=== PATIENT | male | born 1970 | race Caucasian/White ===

== ENCOUNTER 2024-03-07 08:42 | Outpatient (OUT) | payer OTHER, SELFPAY ==
--- NOTE | 2024-03-07 08:44 | XR_ITS ---
[address] [address] Patient Name: REY BERNSTEIN MRN: [id number] date: 1970 Sex: M Assigned Patient Location: [facility] Current Patient Location: Accession/Order Number: [id number] Exam Date: 03/07/2024 08:45 Report Date: 03/10/2024 07:17 At the request of: WALLACE DUQUE Procedure: XR knee RT 3V PROCEDURE: XR knee RT 3V COMPARISON: None. HISTORY: Knee Osteoarthritis FINDINGS: BONES:No acute fracture or dislocation. Minimal degenerative changes with marginal osteophyte formation. Cortical exostosis along the medial femoral condyle osteochondroma is favored SOFT TISSUES:Negative. No visible soft tissue swelling. EFFUSION:None visible. OTHER: Negative. XR/XR knee RT 3V IMPRESSION: Minimal degenerative changes. Electronically authenticated by: LYNDON PARKS Date: 03/10/2024 07:17
== END 2024-03-07 08:43 | disposition home or self-care (01) ==
LOC: RAD 08:42
PROVIDERS: PCP Family Medicine; Visit Provider Family Medicine
DX: M25.561 Pain in right knee (principal)
CPT/HCPCS: 73562

== ENCOUNTER 2024-05-13 13:11 | Outpatient (OUT) | payer OTHER, SELFPAY ==
--- NOTE | 2024-05-13 13:14 | MR_ITS ---
[address] [address] Patient Name: REY BERNSTEIN MRN: [id number] date: 1970 Sex: M Assigned Patient Location: MRI Current Patient Location: MRI Accession/Order Number: [id number] Exam Date: 05/13/2024 18:42 Report Date: 05/13/2024 18:55 At the request of: WALLACE DUQUE MD Procedure: MR knee RT wo con MRI of the RIGHT Knee without contrast TECHNIQUE: Multiplanar T1 and T2-weighted imaging of the knee obtained without contrast HISTORY: Anterior medial right knee pain for 2 months. COMPARISON:Plain film imaging 03/07/2024 BONE MARROW: No infiltrative changes. BONE MARROW EDEMA: None FRACTURE: None BONE TUMOR: None BONY ALIGNMENT: Adequate DEGENERATION: Patellofemoral JOINT EFFUSION: Small moderate MUSCLES: Unremarkable SOFT TISSUES: Unremarkable POPLITEAL CYST: None ANTERIOR CRUCIATE LIGAMENT: Intact POSTERIOR CRUCIATE LIGAMENT: Intact LATERAL COMPARTMENT: LATERAL MENISCUS: Increased T2 signal change within the substance of the body of the lateral meniscus suggesting mucoid degeneration. Moderate lateral extrusion of the body. No articular surface tear visualized.. LATERAL ARTICULAR CARTILAGE: Intact. No osteochondral defect. No subcuticular bone marrow edema. PROXIMAL TIBIOFIBULAR JOINT: Intact POSTERIOR LATERAL COMPARTMENT: Intact lateral collateral ligament complex. Intact biceps femoris tendon. Intact popliteus tendon. COMMON PERONEAL NERVE: Intact MEDIAL COMPARTMENT: MEDIAL MENISCUS: Focus of increased T2 signal intensity in the body of the medial meniscus concerning for radial tear. MEDIAL ARTICULAR SURFACE: No chondromalacia. No subarticular bone marrow edema. Small ganglion cyst posterior to the medial joint space. POSTERIOR MEDIAL COMPARTMENT: Medial collateral ligament complex intact. The semimembranosus tendon intact. No ramp lesion of the posterior horn of medial meniscus present. PATELLOFEMORAL COMPARTMENT: PATELLOFEMORAL ARTICULAR CARTILAGE: Marked thinning of the patellofemoral cartilage. Subchondral bone marrow edema of the patella. Findings consistent with degenerative chondromalacia. Mild patellar subluxation. Anterior and medial lateral subcutaneous edema. ANTERIOR LIGAMENTS: Patellar ligament and quadriceps tendon are intact. MR/MR knee RT wo con IMPRESSION: Concern for radial tear of the body of the medial meniscus. Mucoid degeneration of the lateral meniscus. Intact ACL. Small joint effusion. Degenerative chondromalacia patella with mild subluxation. Anterior subcutaneous edematous changes, nonspecific. Impression dictated by: Jose Benito M.D.05/13/2024 6:55 PM Dictation Location[facility] Electron[facility] authenticated by: [id number] Y Date: 05/13/2024 18:55
--- OUTSIDE RECORDS SUMMARY | 2024-05-13 13:15 | XMS_ITS | CCD ---
Author Organization [facility] Care Team Providers Care Staking Engineer Name Role Phone DUNIA Leo, DR GONSALEZ Consulting Unavailable DUNIA Leo, DR GONSALEZ Attending Unavailable DUNIA Leo, DR GONSALEZ Admitting Unavailable DUNIA ., DR GONSALEZ Primary Care Unavailable Annmarie Mann Unavailable Allergies Allergy Classification Reported Allergen(s) Allergy Type Date of Onset Reaction(s) Facility (1 source) Penicillin Drug Allergy 02-12-2021 [facility] Repository (1 source) Penicillin G Drug Allergy Unknown [facility] Other Problems Problem Classification Problem Date Documented Da te Episodic/Chronic Gout and other crystal arthropathies (4 sources) Gout, unspecified; Translations: [GOUT UNSPECIFIED] Onset: 05-25-2022 Chronic Other injuries and conditions due to external causes (1 source) Foreign body in right ear, initial encounter Episodic Results Test Name Value Interpretation Reference Range Facil ity TITI by IFAon 05-28-2022 Antinuclear Antibodies, IFA Negative Normal [facility] Comment on above: Result Comment: Nega tive <1:80 Borderline 1:80 Positive >1:80 ICAP nomenclature: AC-0 For more information about Hep-2 cell patterns use ANApatterns.org, the official website for the International Consensus on Antinuclear Antibody (TITI) Patterns (ICAP). Performed By: #### A NAIFA #### [facility] [address] [address] [address] Lisbet Bowser TITI DIRECTon 05-26-2022 TITI Direct Negative Normal Negative [facility] Comment on above: Performed By: #### A NAD #### [facility] [address] [address] [address] Lisbet Bowser ANTISTREPTOLYSIN O AB (ASO)o n 05-26-2022 Antistreptolysin O Ab 118.2 IU/mL Normal 0.0-200.0 [facility] Comment on above: Performed By: #### A SOAB #### [facility] [address] [place] [address] Dr. Lisbet Bowser C3 and C4 COMPLEMENTon 05-26 Complement C3, Serum 152 mg/dL Normal 82-167 [facility] Comment on above: Performed By: #### C SUITE #### [facility] [address] [address] [address] Lisbet Bowser Complement C4, Serum 20 mg/dL Normal 12-38 [facility] Comment on above: Performed By: #### C SUITE #### [facility] [address] [place] [address] Dr. Lisbet Bowser SLE PROFILE Aon 05-26-2022 Anti-DNA (DS) Ab Qn 1 IU/mL Normal 0-9 [facility] Comment on above: Result Comment: Nega tive <5 Equivocal 5 - 9 Positive >9 Performed By: #### S MAXWELL #### [facility] [address] [place] [address] Dr. Lisbet Bowser Antichromatin Antibodies <0.2 Normal 0.0-0.9 [facility] Comment on above: Performed By: #### S MAXWELL #### [facility] [address] [place] [address] Dr. Lisbet Bowser RA Latex Turbid. <10.0 Normal <14.0 [facility] Comment on above: Performed By: #### S MAXWELL #### [facility] [address] [place] [address] Dr. Lisbet Bowser P[employer]ING [employer]ATION ATTENDANT Antibodies <0.2 Normal 0.0-0.9 [facility] Comment on above: Performed By: #### S MAXWELL #### [facility] [address] [place] [address] Dr. Lisbet Bowser Sjogren's Anti-SS-A <0.2 Normal 0.0-0.9 [facility] Comment on above: Performed By: #### S MAXWELL #### [facility] [address] [place] [address] Dr. Lisbte Bowser Sjogren's Anti-SS-B <0.2 Normal 0.0-0.9 [facility] Comment on above: Performed By: #### S MAXWELL #### [facility] [address] [place] [address] Dr. Lisbet Bowser [place] Antibodies <0.2 Normal 0.0-0.9 [facility] Comment on above: Performed By: #### S MAXWELL #### [facility] [address] [place] [address] Dr. Lisbet Bowser CBC AUTO DIFFon 05-25-2022 BASO # 0.0 103/ul Normal 0.0-0.1 [facility] Comment on above: Performed By: #### C BC #### [facility] [address] [place] [address] Dr. Lisbet Bowser Basophils/100 WBC (Bld) 0.2 % Normal 0.2-2.0 [facility] Comment on above: Performed By: #### C BC #### [facility] [address] [place] [address] Dr. Lisbet Bowser EO # 0.0 103/ul Normal 0.0-0.7 [facility] Comment on above: Performed By: #### C BC #### [facility] [address] [place] [address] Dr. Lisbet Bowser Eosinophils/100 WBC (Bld) 0.0 % Critically low 0.9-7.0 [facility] Comment on above: Performed By: #### C BC #### [facility] [address] [place] [address] Dr. Lisbet Bowser Erythrocyte distribution width (RBC) [Ratio] 12.3 % Normal 11.0-15.0 [facility] Comment on above: Performed By: #### C BC #### [facility] [address] [place] [address] Dr. Lisbet Bowser Hematocrit (Bld) [Volume fraction] 45.3 % Normal 42.0-54.0 [facility] Comment on above: Performed By: #### C BC #### [facility] [address] [address] [address] Lisbet Bowser Hemoglobin (Bld) [Mass/Vol] 15.5 g/dL Normal 14.0-18.0 [facility] Comment on above: Performed By: #### C BC #### [facility] [address] [address] [address] Lisbet Bowser IG # 0.05 10e3/ul Critically high 0.00-0.03 [facility] Comment on above: Performed By: #### C BC #### [facility] [address] [place] [address] Dr. Lisbet Bowser IG % 0.4 % Normal 0.0-0.5 [facility] Comment on above: Performed By: #### C BC #### [facility] [address] [place] [address] Dr. Lisbet Bowser LYMPH # 1.6 103/ul Normal 1.2-3.8 [facility] Comment on above: Performed By: #### C BC #### [facility] [address] [place] [address] Dr. Lisbet Bowser Lymphocytes/100 WBC (Bld) 13.3 % Critically low 20.5-60.0 [facility] Comment on above: Performed By: #### C BC #### [facility] [address] [place] [address] Dr. Lisbet Bowser MANUAL DIFF REQ NO Normal [facility] Comment on above: Performed By: #### C BC #### [facility] [address] [place] [address] Dr. Lisbet Bowser MCH (RBC) [Entitic mass] 29.6 pg Normal 25.9-34.0 [facility] Comment on above: Performed By: #### C BC #### [facility] [address] [place] [address] Dr. Lisbet Bowser MCHC (RBC) [Mass/Vol] 34.2 g/dL Normal 29.9-35.2 [facility] Comment on above: Performed By: #### C BC #### [facility] [address] [id number] [address] Lisbet Bowser MCV (RBC) [Entitic vol] 86.6 fL Normal 80.0-94.0 [facility] Comment on above: Performed By: #### C BC #### [facility] [address] [address] [address] Lisbet Bowser MONO # 0.5 103/ul Normal 0.3-0.8 [facility] Comment on above: Performed By: #### C BC #### [facility] [address] [address] [address] Lisbet Bowser Monocytes/100 WBC (Bld) 4.5 % Normal 1.7-12.0 [facility] Comment on above: Performed By: #### C BC #### [facility] [address] [place] [address] Dr. Lisbet Bowser NEUT # 9.7 103/ul Critically high 1.4-6.5 [facility] Comment on above: Performed By: #### C BC #### [facility] [address] [place] [address] Dr. Lisbet Bowser Neutrophils/100 WBC (Bld) 81.6 % Critically high 43.0-75.0 [facility] Comment on above: Performed By: #### C BC #### [facility] [address] [place], [place] [id number] Dr. Lisbet Bowser Platelet mean volume (Bld) [Entitic vol] 11.0 fL Normal 9.5-13.5 [facility] Comment on above: Performed By: #### C BC #### [facility] [address] [place] [address] Dr. Lisbet Bowser PLT 251 103/ul Normal 150-450 [facility] Comment on above: Performed By: #### C BC #### [facility] [address] [place], [place] [id number] Dr. Lisbet Bowser RBC 5.23 106/ul Normal 4.70-6.10 [facility] Comment on above: Performed By: #### C BC #### [facility] [address] [place] [address] Dr. Lisbet Bowser WBC 11.9 103/ul Critically high 4.0-11.0 [facility] Comment on above: Performed By: #### C BC #### [facility] [address] [place] [address] Dr. Lisbet Bowser CRPon 05-25-2022 CRP 2.3 mg/dL Critically high <=1.0 [facility] Comment on above: Performed By: #### C MP, CRP, URIC #### [facility] [address] [address] [address] Lisbet Bowser PROF 14(COMP METB)on 023 Albumin [Mass/Vol] 3.6 g/dL Normal 3.4-5.0 [facility] Comment on above: Performed By: #### C MP, CRP, URIC #### [facility] [address] [place] [address] Dr. Lisbet Bowser Albumin/Globulin [Mass ratio] 1.0 {ratio} Normal [facility] Comment on above: Performed By: #### C MP, CRP, URIC #### [facility] [address] [place] [address] Dr. Lisbet Bowser ALP [Catalytic activity/Vol] 55 U/L Normal 46-116 [facility] Comment on above: Performed By: #### C MP, CRP, URIC #### [facility] [address] [place] [address] Dr. Lisbet Bowser ALT [Catalytic activity/Vol] 33 U/L Normal 16-63 [facility] Comment on above: Performed By: #### C MP, CRP, URIC #### [facility] [address] [place] [address] Dr. Lisbet Bowser Anion gap [Moles/Vol] 14.3 mmol/L Normal [facility] Comment on above: Performed By: #### C MP, CRP, URIC #### [facility] [address] [place] [address] Dr. Lisbet Bowser AST [Catalytic activity/Vol] 18 U/L Normal 15-37 [facility] Comment on above: Performed By: #### C MP, CRP, URIC #### [facility] [address] [address] [address] Lisbet Bowser Bilirubin [Mass/Vol] 0.7 mg/dL Normal 0.2-1.0 [facility] Comment on above: Performed By: #### C MP, CRP, URIC #### [facility] [address] [address] [address] Lisbet Bowser Calcium [Mass/Vol] 9.1 mg/dL Normal 8.5-10.1 [facility] Comment on above: Performed By: #### C MP, CRP, URIC #### [facility] [address] [address] [address] Lisbet Bowser Chloride [Moles/Vol] 105 mmol/L Normal 98-107 [facility] Comment on above: Performed By: #### C MP, CRP, URIC #### [facility] [address] [place] [address] Dr. Lisbet Bowser CO2 [Moles/Vol] 24.6 mmol/L Normal 21.0-32.0 [facility] Comment on above: Performed By: #### C MP, CRP, URIC #### [facility] [address] [place] [address] Dr. Lisbet Bowser Creatinine [Mass/Vol] 0.91 mg/dL Normal 0.70-1.30 [facility] Comment on above: Performed By: #### C MP, CRP, URIC #### [facility] [address] [place] [address] Dr. Lisbet Bowser EGFR-AF HONDURAN >60 Normal >=60 [facility] Comment on above: Performed By: #### C MP, CRP, URIC #### [facility] [address] [place] [address] Dr. Lisbet Bowser EGFR-NON AF HONDURAN >60 Normal >=60 [facility] Comment on above: Performed By: #### C MP, CRP, URIC #### [facility] [address] [place] [address] Dr. Lisbet Bowser Globulin (S) [Mass/Vol] 3.7 g/dL Normal [facility] Comment on above: Performed By: #### C MP, CRP, URIC #### [facility] [address] [place] [address] Dr. Lisbet Bowser Glucose [Mass/Vol] 136 mg/dL Critically high 74-106 [facility] Comment on above: Performed By: #### C MP, CRP, URIC #### [facility] [address] [place] [address] Dr. Lisbet Bowser Potassium [Moles/Vol] 3.9 mmol/L Normal 3.5-5.1 [facility] Comment on above: Performed By: #### C MP, CRP, URIC #### [facility] [address] [place] [address] Dr. Lisbet Bowser Protein [Mass/Vol] 7.3 g/dL Normal 6.4-8.2 [facility] Comment on above: Performed By: #### C MP, CRP, URIC #### [facility] [address] [place] [address] Dr. Lisbet Bowser Sodium [Moles/Vol] 140 mmol/L Normal 136-145 [facility] Comment on above: Performed By: #### C MP, CRP, URIC #### [facility] [address] [place] [address] Dr. Lisbet Bowser Urea nitrogen [Mass/Vol] 13.0 mg/dL Normal 7.0-18.0 [facility] Comment on above: Performed By: #### C MP, CRP, URIC #### [facility] [address] [place] [address] Dr. Lisebt Bowser Urea nitrogen/Creatinine [Mass ratio] 14.3 mg/mg Normal [facility] Comment on above: Performed By: #### C MP, CRP, URIC #### [facility] [address] [place] [address] Dr. Lisbet Bowser SED RATE WESTERGRENon 2022 SED RATE 24 mm/hr Critically high <=20 [facility] Comment on above: Performed By: #### S EDR #### [facility] [address] [place] [address] Dr. Lisbet Bowser URIC ACID SERUMon 05-25-2022 Urate [Mass/Vol] 7.8 mg/dL Critically high 3.5-7.2 [facility] Comment on above: Performed By: #### C MP, CRP, URIC #### [facility] [address] [address] [address] Lisbet Bowser Vital Signs Date Time Vital Sign Value Performing Clinician Facility 08-03-2022 11:10-0400 Body height 170.18 cm Annmarie Mann Other [facility] Other 08-03-2022 11:10-0400 Body mass index (BMI) [Ratio] 51.62 kg/m2 Annmarie Mann Other [facility] Other 08-03-2022 11:10-0400 Body temperature 96.4 [degF] Annmarie Mann Other [facility] Other 08-03-2022 11:10-0400 Body weight 149.51 kg Annmarie Mann Other [facility] Other 08-03-2022 11:10-0400 Respiratory rate 18 /min Annmarie Mann Other [facility] Other 08-03-2022 11:10-0400 SaO2% (BldA) [Mass fraction] 96 % Annmarie Mann Other [facility] Other Encounters Encounter Date Encounter Type Care Provider Facility Start: 08-03-2022 End: 08-03-2022 ambulatory Annmarie Mann Other [facility] Other Start: 08-03-2022 Office outpatient vi sit 15 minutes Annmarie Mann [facility] Start: 05-25-2022 End: 05-26-[address] WALLACE DUQUE . Facility:[facility] Payers Date Payer Category Payer Unknown [id number] 1960 Private Health Insurance [id number] Social History Date Type Detail Facility Unknown if ever smoked [facility] Other Sex Assigned At Sex Assigned At Bir th [facility] Other Evaluation note 08-03-2022 Note Date & Type Note Facility 08-03-2022 Evaluation note Encounter Date Diagnosis Assessment Notes Aug, Ear foreign body, right, initial encounter (ICD-10 - T16.1XXA) Foreign body removed as per procedure documentation without issue. Discussed with patient no trauma to ear canal or TM from foreign body. Follow-up with PCP if further concerns. [facility] Other Summary Purpose Family History No Family History Records Found Advance Directives No Advanced Directives Records Found Additional Source Comments (unrecognized sect ion and content) No Status Records Found INFORMATION SOURCE (unrecogn ized section and content) DATE CREATED AUTHOR 06/10/2022 [facility] REASON FOR VISIT (unrecogniz ed section and content) RIGHT EAR, WAX OR OBJECT FOR RECORDS PERTAINING TO PATIENTS WHO ARE OR HAVE BEEN ENROLLED IN A CHEMICAL DEPENDENCY/SUBSTANCEABUSE PROGRAM, SOME INFORMATION MAY BE OMITTED. This clinical summary was aggregated from multiple sources. Caution should be exercised in using it in the provision of clinical care. This summary normalizes information from multiple sources, and as a consequence, information in this document may materially change the coding, format and clinical context of patient data. In addition, data may be omitted in some cases. CLINICAL DECISIONS SHOULD BE BASED ON THE PRIMARY CLINICAL RECORDS. [employer] [facility]. provides no warranty or guarantee of the accuracy or completeness of information in this document.
== END 2024-05-13 13:12 | disposition home or self-care (01) ==
LOC: MRI 13:11
PROVIDERS: PCP Family Medicine; Visit Provider Family Medicine
DX: M17.11 Unilateral primary osteoarthritis, right knee (principal); M25.461 Effusion, right knee
CPT/HCPCS: 73721

== ENCOUNTER 2024-07-28 17:10 | Emergency (ER) | payer OTHER, SELFPAY ==
--- OUTSIDE RECORDS SUMMARY | 2024-05-20 07:52 | XMS_ITS ---
Author Organization [facility] Address [address] [place] [address] Care Team Providers Care Software Technical Lead Name Role Phone Etienne Bishop Primary Care Provider Harris Figueroa [facility] [phone] Encounters Encounter Location Date Provider Diagnosis [facility] [address] [place] [address] 05/20/2024 Harris Ramirez Plan Of Treatment No Information Progress Notes * REY BERNSTEIN MDOB: [birth year] (54 yo M)Acc No.[id number]:05/20/2024 Patient: Estela REY CAMPBELL :1970 A ge:54 Y S ex:Male Address:[address] [place] [address], [phone] * true * Date: Generated for Shahrami ng/Faanuragg/eTransmitting on: 0 07/28/2024 05:13 PM EDT
--- OUTSIDE RECORDS SUMMARY | 2024-05-26 05:40 | XMS_ITS ---
Author Organization [facility] Address [address] [place] [address] Care Team Providers Care Agricultural Production Engineer Name Role Phone Etienne Bishop Primary Care Provider Rob Figueroaen [facility] [phone] REASON FOR VISIT RIGHT KNEE OA Social History Tobacco Use: Social History Observation Description Date Details (start date - stop date) Never Smoker NA - NA AUDIT-C (Standard) Question Answer Notes Did you have a drink containing alcohol in the p ast year? No Points 0 Interpretation Negative Tobacco Control (Standard) Question Answer Notes Tobacco use: Nonsmoker Vital Signs Height 5'7 in 05/26/2024 Weight 340 lbs 05/26/2024 BMI 53.25 05/26/2024 Encounters Encounter Location Date Provider Diagnosis [facility] [address] [place] [address] [place] [address] 05/26/2024 Harris Ramirez Primary osteoarthrit is of right knee M17.11 Assessments Encounter Date Diagnosis (ICD Code) Assessment Notes Treatment Notes Treatment Clinical Notes Section Notes 05/26/2024 Primary osteoarthritis of right knee (ICD-10 - M17.11) 05/26/2024 Other Given failure to improve with 2 steroid injections and incomplete relief with prescription anti-inflammatories he is interested in proceeding with viscosupplementation injections. He will follow-up pending approval for this injection. Import medication Plan Of Treatment Treatment Notes Assessment Notes Other Given failure to improve with 2 steroid injections and incomplete relief with prescription anti-inflammatories he is interested in proceeding with viscosupplementation injections. He will follow-up pending approval for this injection. Import medication Next Appt Details Follow Up: AFTER APPROVAL, Reid marinelli: Progress Notes * REY BERNSTEIN MDOB: [birth year] (54 yo M)Acc No.[id number]:05/26/2024 Patient: REY COX Provider: Katiuska Ramirez MD :1970 A ge:54 Y S ex:Male Date:05/26/2024 Address:[address] [place] [address], [id number] Pcp:Etienne Bishop Subjective: * Chief Complaints: * R IGHT KNEE OA * HPI: G eneral Follow Up Information: Patient presents today for follow-up of his right knee osteoarthritis and medial meniscus tear. He reports with 2 steroid injections he did not get any pain relief. He reports the meloxicam has provided some symptomatic relief but with prolonged walking if he continues to have pain. * Medical History: * Surgical History: N o Surgical History documented. * Family History: N o Family History documented.. * Social History: A EL-C (Standard) D id you have a drink containing alcohol in the past year? N o,?Points 0 , I nterpretation N egative. T obacco Control (Standard) T obacco use: N onsmoker. * Medications: N one * Allergies: n o[Allergies Verified] Objective: * Vitals: H t: 5'7 , Wt: 340 lbs, BMI:53.25. * Examination: G eneral examination: R ight knee today has no joint effusion. No erythema or warmth. Joint line tenderness is present. Gait is not antalgic. M RI Imaging Studies: P rior MRI scan was reviewed and it shows complete loss of articular cartilage on the underside of the patella with subchondral cyst and small radial tear of the medial meniscus. Assessment: * Assessment: 1. P rimary osteoarthritis of right knee - M17.11 (Primary) Plan: * Treatment: * Procedure Codes: * Follow Up: A FTER APPROVAL Forms: * Images: * Sign off status: Completed true * Provider: Katiuska Ramirez MD Date: 05/26/2024 Generated for Helena gunderson/Nik/eTransmitting on: 0 07/28/2024 05:14 PM EDT History and Physical Notes * HPI (History of Present Illness) Category Sub-Category Detail Notes Category Not es General Follow Up Information Patient presents tod ay for follow-up of his right knee osteoarthritis and medial meniscus tear. He reports with 2 steroid injections he did not get any pain relief. He reports the meloxicam has provided some symptomatic relief but with prolonged walking if he continues to have pain. Examination Category Sub-Category Detail Notes Category Not es General examination Right kn ee today has no joint effusion. No erythema or warmth. Joint line tenderness is present. Gait is not antalgic. MRI Imaging Studies Prior MR I scan was reviewed and it shows complete loss of articular cartilage on the underside of the patella with subchondral cyst and small radial tear of the medial meniscus
--- OUTSIDE RECORDS SUMMARY | 2024-07-11 06:20 | XMS_ITS ---
Author Organization [facility] in [place] Address [address] [place] [address] Care Team Providers Care Working Second Hand Name Role Phone Joe Bishop Primary Care Provider REASON FOR VISIT BP check Medications Medication SIG (Take, Route, Frequency, Duration) Notes Start Date End Date Status Losartan Potassium 100 MG 1 tablet Orall y Once a day for 30 days 06/26/2024 Active Encounters Encounter Location Date Provider Diagnosis [facility] [address] [place] [address] 07/11/2024 Joe Bishop HTN (hypertension) I 10 Assessments Encounter Date Diagnosis (ICD Code) Assessment Notes Treatment Notes Treatment Clinical Notes Section Notes 07/11/2024 HTN (hypertension) (ICD-10 - I10) Plan Of Treatment Medication Medication Name Sig Start Date Stop Date Notes Losartan Potassium 100 MG 1 tablet Orall y Once a day for 30 days 06/26/2024 Progress Notes * Chip FERRERA MDOB: [birth year] (54 yo M)Acc No.[id number]:07/11/2024 Patient: Estela Chip CAMPBELL :1970 A ge:54 Y S ex:Male Address:[address] [place] [id number] * Refills Refill Losartan Potassium Tablet, 100 MG, Orally, 30, 1 tablet, Once a day, 30 days, Refills=11 * true * Date: Generated for Helena gunderson/Nik/T[place] on: 0 07/28/2024 05:14 PM EDT
--- OUTSIDE RECORDS SUMMARY | 2024-07-11 06:30 | XMS_ITS ---
Author Organization [facility] in [place] Address [address] [place] [address] Care Team Providers Care Supervisor Metalizing Name Role Phone Joe Bishop Primary Care Provider REASON FOR VISIT BP CHECK Vital Signs Height 66 in 07/11/2024 Blood pressure systolic 154 mm Hg 07/12/19 25 Blood pressure diastolic 82 mm Hg 025 Encounters Encounter Location Date Provider Diagnosis [facility] [address] [place] [address] 07/11/2024 Joe Bishop HTN (hypertension) I 10 Assessments Encounter Date Diagnosis (ICD Code) Assessment Notes Treatment Notes Treatment Clinical Notes Section Notes 07/11/2024 HTN (hypertension) (ICD-10 - I10) Plan Of Treatment No Information Progress Notes * Chip FERRERA MDOB: [birth year] (54 yo M)Acc No.[id number]:07/11/2024 UNLOCKED PROGRESS NOTE BP Check Patient: Estela Chip CAMPBELL Provider: Steve Bishop (MD SENA :1970 A ge:54 Y S ex:Male Date:07/11/2024 Address:[address] [place], [place] [id number] Check In:10:15 AM ESTCheck O ut:10:46 AM EST Subjective: * Chief Complaints: * 1 . BP CHECK. * Medical History: Objective: * Vitals: H t: 66 in, BP:154/82mm Hg, Ht-cm: 167.64 cm. Assessment: * Assessment: 1. H TN (hypertension) - I10 (Primary) Plan: * Treatment: * * Electronic signature of Joe Bishop MD, [id number] on 07/28/2024 at 05:14 PM EDT Sign off status: Pending Visit Status: C HK (Check Out) * Provider: Steve Bishop ([facility])MD Date: 0 07/11/2024 Generated for Helena gunderson/Nik/eTransmitting on: 0 07/28/2024 05:14 PM EDT
--- OUTSIDE RECORDS SUMMARY | 2024-07-14 23:59 | XMS_ITS | Continuity of Care Document ---
Author Organization [facility] Address Unknown Care Team Providers Care Belt Sander Name Role Phone Joe Bishoplas Primary Care Physician [phone] Encounter FT_FIN [id number] Date(s): 07/14/24 - 07/14/24 [facility] [place] [address]- Discharge Disposition: Home (Routine DC) Attending Physician: Zhao Quintero DO Admitting Physician: Zhao Quintero DO Referring Physician: Zhao Quintero DO Encounter Type: Outpatient Allergies, Adverse Reactions, Alerts Substance Criticality Severity Reaction Reaction Severity Status penicillins Rash Hives Active Assessment and Plan Future Appointments Appointment Date:07/21/2024 01:15:00 PM Scheduled Provider: Location:[facility] Appointment Type:Surgery FT Functional Status 07/14/24 Hx of Positive TB Skin Test No MRSA/VRE/Other Active-Hx No C-Diff Active/Hx No Symptomatic After Exposure to Contagion No Symptomatic After Travel High-Risk Area No Droplet, Contact Isolation Verification N/A Airborne,Contact Isolation Verification N/A Medications aspirin 325 mg Tab 325 mg = 1 tab(s), Oral, Daily, Start the day after surgery for blood clot prevention., X 30 day(s), # 21 tab(s), Refills(s) 0, Pharmacy: [facility]/pharmacy #[id number], 170, cm, 07/14/24 11:50:00 EDT, Height/Length Dosing, 153, kg, 07/14/24 11:50:00 EDT, Weight Dosing Start Date: 07/14/24 Stop Date: 08/13/24 Status: Ordered Quantity: 21.0 Unit: tab(s) Repeat number: 1 losartan 50 mg Tab 50 mg = 1 tab(s), Oral, Daily, Refills(s) 0 Start Date: 07/14/24 Status: Ordered Repeat number: 1 Conowingo 325 mg-5 mg oral tablet See Instructions, for pain, 30 tab(s), Refill(s) 0, 1-2 tab(s) Oral q4hr PRN Pain. Duration 7 days., [facility]/pharmacy #[id number], 170, cm, 07/14/24 11:50:00 EDT, Height/Length Dosing, 153, kg, 07/14/24 11:50:00 EDT, Weight Dosing Start Date: 07/14/24 Status: Ordered Quantity: 30.0 Unit: tab(s) Repeat number: 1 Indication: Other tear of medial meniscus, current injury, right knee, initial encounter Problem List Condition Confirmation Course Effective Dates Status Health St atus Informant High blood pressure Confirmed Active Procedures Procedure Date Related Diagnosis Body Site Status Dental surgical procedure Completed Results Laboratory List Name Date Basic Metabolic Panel (BMP) 07/14/24 CBC w/ Auto Diff 07/14/24 eGFR 07/14/24 Most recent to oldest [Reference Range]: 1 BUN/Creat Ratio [10-20] 18 (07/14/24 9:38 AM) AGAP [6-16 mEq/L] 10 mEq/L (07/14/24 9:38 AM) Basophil Auto [0.0-2.0 %] 0.2 % (07/14/24 9:38 AM) CO2 [21-31 mmol/L] 28 mmol/L (07/14/24 9:38 AM) Eos Auto [0.0-8.0 %] 0.7 % (07/14/24 9:38 AM) Glucose Lvl [55-199 mg/dL] 103 mg/dL (07/14/24 9:38 AM) Hct [37.7-49.0 %] 46.0 % (07/14/24 9:38 AM) Hgb [13.5-17.5 gm/dL] 15.7 gm/dL (07/14/24 9:38 AM) Lymph Auto [14.0-50.0 %] 22.8 % (07/14/24 9:38 AM) RBC [4.3-5.9 E12/L] 5.1 E12/L (07/14/24 9:38 AM) RDW [10.9-14.2 %] 13.5 % (07/14/24 9:38 AM) Sodium Lvl [135-145 mmol/L] 137 mmol/L (07/14/24:38 AM) MCH [27.0-34.0 pg] 30.9 pg (07/14/24:38 AM) MCHC [31.4-36.0 gm/dL] 34.2 gm/dL (07/14/24:38 AM) MCV [80.0-100.0 fL] 90.4 fL (07/14/24:38 AM) Dewey Auto [4.0-14.0 %] 7.3 % (07/14/24:38 AM) MPV [6.4-10.8 fL] 9.4 fL (07/14/24:38 AM) Neutro Auto [36.0-75.0 %] 69.0 % (07/14/24:38 AM) BUN [5-21 mg/dL] 16 mg/dL (07/14/24:38 AM) Calcium Lvl [8.9-11.1 mg/dL] 8.9 mg/dL (07/14/24:38 AM) Platelet [150.0-500.0 E9/L] 254.0 E9/L (07/14/24:38 AM) Potassium Lvl [3.5-5.3 mmol/L] 3.9 mmol/ L (07/14/24:38 AM) WBC [4.0-11.0 E9/L] 11.2 E9/L *HI* (07/14/24:38 AM) Chloride [101-111 mmol/L] 103 mmol/L (07/14/24 9:38 AM) Dewey Absolute [0.2-1.0 E9/L] 0.8 E9/L (07/14/24 9:38 AM) Eos Absolute [0.0-0.5 E9/L] 0.1 E9/L (07/14/24 9:38 AM) Basophil Absolute [0.0-0.2 E9/L] 0.0 E9/ L (07/14/24 9:38 AM) Neutro Absolute [2.0-7.5 E9/L] 7.7 E9/L *HI* (07/14/24 9:38 AM) Lymph Absolute [1.0-4.0 E9/L] 2.6 E9/L (07/14/24 9:38 AM) eGFR [>=59 mL/min/1.73 m2] 101 mL/min/1. 73 m2 (07/14/24 9:38 AM) Creatinine [0.5-1.3 mg/dL] 0.9 mg/dL (07/14/24 9:38 AM) Vital Signs Most recent to oldest [Reference Range]: 1 2 Heart Rate Monitored [60-100 bpm] 72 bpm (07/14/24 9:29 AM) 75 bpm (07/14/24 9:28 AM) Blood Pressure [89-139/59-89 mmHg] 122/7 6mmHg (07/14/24 9:29 AM) 139/82mmHg (07/14/24 9:28 AM) Mean Arterial Pressure, Monitered 91 mmH g (07/14/24 9:29 AM) 101 mmHg (07/14/24 9:28 AM) SpO2 [89 %] 94 % (07/14/24 9:28 AM) Social History Social History Type Response Sex Male Sex Representation Male (finding) Patient Care team information Care Team Personnel Name: Etienne Bishop MD Position: FT Physician Member Role: Primary Care Physician Address: [address] [place] [address] Telecom: Care Team Related Persons Name: BOB BERNSTEIN Name: BOB BERNSTEIN Insurance Providers Guarantor name: REY AMANDEEP Health Plan Information #: 1 Payer: [employer] Member Number: [id number] Policy Number: NA Group Number: [id number] Health Plan Information #: 2 Payer: CIG[employer] Member Number: NA Policy Number: NA Group Number: NA
--- OUTSIDE RECORDS SUMMARY | 2024-07-16 06:15 | XMS_ITS ---
Author Organization [facility] in [place] Address [address] [place] [address] Care Team Providers Care Elementary School Teacher'S Aide Name Role Phone Joe Bishop Primary Care Provider [phone] Allergies Allergen (clinical drug ingredient) Drug/Non Drug Allergy documented on EMR Reaction Allergy Type Onset Date Status amoxicillin Amoxicillin hives Drug Allergy Act shon REASON FOR VISIT surgery clearance surgery on 07/21 presurgical testing 07/14, Right knee scope- Dr Elton Faust, Patient needs Losartan sent over to [facility], Had an EKG done on 07/14- has told needs to see Cardio- has appointment today - will call over for EKG results Medications Medication SIG (Take, Route, Frequency, Duration) Notes Start Date End Date Status Losartan Potassium 100 MG 1 tablet Orall y Once a day for 30 days 06/26/2024 Active Social History Tobacco Use: Social History Observation Description Date Details (start date - stop date) Never Smoker NA - NA Tobacco Use/Smoking Question Answer Notes Patient is a nonsmoker Vital Signs Weight 339.6 lbs 07/16/2024 Height 66 in 07/16/2024 Blood pressure systolic 136 mm Hg 07/17/19 25 Blood pressure diastolic 80 mm Hg 025 BMI 54.81 kg/m2 07/16/2024 Encounters Encounter Location Date Provider Diagnosis [facility] [address] [place] [address] 07/16/2024 Joe Bishop Knee osteoarthritis M17.10 Assessments Encounter Date Diagnosis (ICD Code) Assessment Notes Treatment Notes Treatment Clinical Notes Section Notes 07/16/2024 Knee osteoarthritis (ICD-10 - M17.10) Medcailly stable no hx pittman , cad, or pul issue s excpet untreaed sleep apnea COnsideration for Spinal for surgeyr Plan Of Treatment Treatment Notes Assessment Notes Knee osteoarthritis Medcailly stable no hx pittman , cad, or pul issue s excpet untreaed sleep apnea COnsideration for Spinal for surgeyr Progress Notes * Chip FERRERA MDOB: [birth year] (54 yo M)Acc No.[id number]:07/16/2024 Progress Note Patient: Chip COX Provider: Steve Bishop ([facility])MD :1970 A ge:54 Y S ex:Male Date:07/16/2024 Address:[address] [place] [address], [id number] Check In:10:20 AM ESTCheck O ut:11:14 AM EST Subjective: * Chief Complaints: * S urgery clearance surgery on 07/21 presurgical testing 07/14Right knee scope- Dr Elton Ferrera TitusPatient needs Losartan sent over to [facility] an EKG done on 07/14- has told needs to see Cardio- has appointment today - will call over for EKG results * HPI: G eneral: no CAD hx 0 NO strokes no pulm issues - + sleep apnea- not treated currently. * ROS: E ENT: hearing changes d enies. v isual changes d enies.?non-healing mouth sores d enies. s wollen glands or neck lumps d enies. h oarseness d enies. s ore throat d enies. d ifficulty swallowing d enies. n ose bleeds d enies. n ashanti congestion d enies. e ar ache d enies. e ar discharge?denies. r inging in ears d enies. l ight sensitivity d enies. e ye pain d enies. b lurring d enies. e ye irritation d enies. d ouble vision d enies.?vision loss d enies. G eneral/Constitutional: Sweats: D enies. F atigue d enies. S leep problems d enies. A norexia d enies. M alaise d enies. W eight loss d enies.?Fatigue or Weakness d enies. F ever or Chills d enies. C ardiovascular: Shortness of Breath w/lying flat d enies. L ightheadedness/dizziness d enies. C hest tightness/ heavy pressure d enies. S welling of legs, ankles, or feet d enies. W aking up with shortness of breath d enies. C hest pain denies. P alpitations d enies. W eight gain d enies. R espiratory: Chronic or frequent cough d enies. C oughing up blood?denies. D ifficulty breathing d enies. P roductive cough d enies. S noring?denies. S hortness of breath that awakens from sleep (PND) d enies. C hest pain d enies. S putum production d enies. W heezing d enies. M usculoskeletal: Joint pain d enies. J oint Fluid d enies. B ack pain d enies. K nee pain d enies. N reinaldo pain d enies. J oint Stiffness d enies. M uscle cramps d enies. W eakness of muscles d enies. A rthritis d enies. M uscle aches d enies. P ain in shoulder(s) d enies. S wollen joints d enies. * Active Problem List M10.9 Gout, unspecified Modified On:11/22/2022/U Status:confirmed G47.00 Insomnia Modified On:12/06/2022U Status:confirmed M54.5 Low back pain Modified On:12/06/2022U Status:confirmed L30.9 Eczema Modified On:12/06/2022U Status:confirmed B35.3 Tinea pedis Modified On:12/07/2022U Status:confirmed J01.90 Acute sinus infectio n Modified On:05/14/2023/U Status:confirmed M17.10 Knee osteoarthritis Modified On:02/29/2024/U Status:confirmed M17.11 Arthritis of knee, r ight Modified On:03/21/2024W/U Status:confirmed I10 HTN (hypertension) Modified On:06/26/2024W/U Status:confirmed * Medical History: * Surgical History: T onsils * Hospitalization/Major Diagno stic Procedure: D enies Past Hospitalization * Family History: F ather: 66 yrs, diagnosed with Other malignant neoplasm of unspecified site. M other: alive 72 yrs. B rother(s): alive. 1 brother(s) - healthy. . * Social History: T obacco Use: T obacco Use/Smoking P atient is a n onsmoker * Medications: T akingLosartan Potassium 100 MG Tablet 1 tablet Orally Once a day Taking Losartan Potassium 100 MG Tablet 1 tablet Orally Once a day DiscontinuedDiclofenac Sodium 75 MG Tablet Delayed Release 1 tablet as needed Orally Twice a day Gelsyn-3(Sodium Hyaluronate (Viscosup)) 16.8 MG/2ML Solution Prefilled Syringe Inject 2 mL Intra-articular into the right knee once weekly for 3 weeks DX M17.11 predniSONE 20 MG Tablet 3 tablet Orally Once a day Medication List reviewed and reconciled with the patientDiscontinued Diclofenac Sodium 75 MG Tablet Delayed Release 1 tablet as needed Orally Twice a day Discontinued Gelsyn-3(Sodium Hyaluronate (Viscosup)) 16.8 MG/2ML Solution Prefilled Syringe Inject 2 mL Intra-articular into the right knee once weekly for 3 weeks DX M17.11 Discontinued predniSONE 20 MG Tablet 3 tablet Orally Once a day Medication List reviewed and reconciled with the patient * Allergies: A moxicillin: hives - Side Effects - Criticality Highno[Allergies Verified] Objective: * Vitals: W t:339.6lbs, Ht: 66 in, BP:136/80mm Hg, BMI:54.81Index, Ht-cm: 167.64 cm, Wt-k.04 kg. * Examination: P hysical Exam: GENERAL: w ell developed, well nourished, in no acute distress. HEAD: n ormocephalic/atraumatic. EYES: p upils equal, round and reactive to light, conjunctivae and sclerae normal. EARS: n o deformity or lesion of external ear, canals and TM appear normal bilaterally, TM's intact, not inflamed with normal light reflex, hearing grossly normal to conversational speech. NOSE: n o deformity, discharge, inflammation, or lesions.? MOUTH: m ucous membranes moist, normal oropharynx and posterior pharynx without lesions or exudates, tongue normal, dentition normal. NECK: n reinaldo supple, no masses or palpable cervical nodes, trachea midline, thyroid without nodules, masses, tenderness, or enlargement. CHEST: n o chest wall deformity, no chest wall tenderness.? LUNGS: n ormal respiratory effort and clear to auscultation, no wheezes, rales, or rhonchi, good air exchange. CARDIO: r egular rate and rhythm, normal S1 and S2, nor murmur, rub, or gallop. PULSES: n ormal capillary refill. ABDOMEN: s oft, non-distended, non-tender, no masses. MUSCULOSKELETAL: n o deformity or scoliosis noted, normal range of motion, joints normal, no erythema, edema, effusion, or ecchymosis. EXTREMITY: n o clubbing, cyanosis, edema, or deformity with normal ROM in both upper and lower bilateral extremities. NEUROLOGIC: g rossly normal. SKIN: n o rashes, ulcerations, or suspicious lesions. LYMPH NODES: n o cervical adenopathy, nodes normal. MENTAL STATUS: a lert and oriented x3, normal mood and affect. Assessment: * Assessment: 1. K nee osteoarthritis - M17.10 (Primary) Plan: * Treatment: * Procedure Codes: * Preventive Medicine: Screenings/Counseling: B W[place] ACTION PLAN Above Normal BMI Follow-up D ietary management education, guidance, and counseling * * Sign off status: Completed Visit Status: C HK (Check Out) true * Provider: Steve Bishop ([facility])MD Date: 0 07/16/2024 Generated for Helena gunderson/Nik/Royeritting on: 0 07/28/2024 05:14 PM EDT History and Physical Notes * HPI (History of Present Illness) Category Sub-Category Detail Notes Category Not es General no CAD hx 0 NO strokes no pulm issues - + sleep apnea- not treated currently Examination Category Sub-Category Detail Notes Category Not es Physical Exam GENERAL: well developed, well nourished, in no acute distress HEAD: normocephalic/atraum atic EYES: pupils equal, round and reactive to light, conjunctivae and sclerae normal EARS: no deformity or lesi on of external ear, canals and TM appear normal bilaterally, TM's intact, not inflamed with normal light reflex, hearing grossly normal to conversational speech NOSE: no deformity, discha rge, inflammation, or lesions MOUTH: mucous membranes neena st, normal oropharynx and posterior pharynx without lesions or exudates, tongue normal, dentition normal NECK: neck supple, no mass es or palpable cervical nodes, trachea midline, thyroid without nodules, masses, tenderness, or enlargement CHEST: no chest wall deform ity, no chest wall tenderness LUNGS: normal respiratory e ffort and clear to auscultation, no wheezes, rales, or rhonchi, good air exchange CARDIO: regular rate and rhy thm, normal S1 and S2, nor murmur, rub, or gallop PULSES: normal capillary ref ill ABDOMEN: soft, non-distended, non-tender, no masses RECTAL: MUSCULOSKELETAL: no deformity or scol iosis noted, normal range of motion, joints normal, no erythema, edema, effusion, or ecchymosis EXTREMITY: no clubbing, cyanosi s, edema, or deformity with normal ROM in both upper and lower bilateral extremities NEUROLOGIC: grossly normal SKIN: no rashes, ulceratio ns, or suspicious lesions LYMPH NODES: no cervical adenopat hy, nodes normal MENTAL STATUS: alert and oriented x 3, normal mood and affect
--- OUTSIDE RECORDS SUMMARY | 2024-07-16 23:59 | XMS_ITS | Continuity of Care Document ---
Author Organization [facility] Address Unknown Care Team Providers Care Show Jumping Instructor Name Role Phone Edna Etienne Primary Care Physician Encounter [facility] [id number] Date(s): 07/16/24 - 07/16/24 [address] [address] [place] [address]- Discharge Disposition: Home (Routine DC) Attending Physician: Fabián Sorto MD Admitting Physician: Fabián Sorto MD Referring Physician: Zhao Quintero DO Encounter Type: Outpatient Allergies, Adverse Reactions, Alerts Substance Criticality Severity Reaction Reaction Severity Status penicillins Rash Hives Active Assessment and Plan Future Appointments Appointment Date:07/17/2024 08:00:00 AM Scheduled Provider: [facility] Appoint[facility] Type:CV Echo (FT) Appointment Date:07/21/2024 01:15:00 PM Scheduled Provider: Location:[facility] Appointment Type:Surgery FT Appointment Date:01/16/2025 01:00:00 PM Scheduled Provider:Fabián Sorto MD [facility] Type:Cardiology Follow Up (FT) Future Scheduled Tests Radiology* Echo Transthoracic Complete 07/17/24 Functional Status 07/16/24 Symptomatic After Exposure to Contagion No Symptomatic After Travel High-Risk Area No Droplet, Contact Isolation Verification N/A Airborne,Contact Isolation Verification N/A Medications aspirin 325 mg Tab 325 mg = 1 tab(s), Oral, Daily, Start the day after surgery for blood clot prevention., X 30 day(s), # 21 tab(s), Refills(s) 0, Pharmacy: [id number], 170, cm, 07/14/24 11:50:00 EDT, Height/Length Dosing, 153, kg, 07/14/24 11:50:00 EDT, Weight Dosing Start Date: 07/14/24 Stop Date: 08/13/24 Status: Ordered Quantity: 21.0 Unit: tab(s) Repeat number: 1 losartan 50 mg Tab 50 mg = 1 tab(s), Oral, Daily, Refills(s) 0 Start Date: 07/14/24 Status: Ordered Repeat number: 1 [place] 325 mg-5 mg oral tablet See Instructions, for pain, 30 tab(s), Refill(s) 0, 1-2 tab(s) Oral q4hr PRN Pain. Duration 7 days., [id number], 170, cm, 07/14/24 11:50:00 EDT, Height/Length [...] Body Site Status Dental surgical procedure Completed Vital Signs Most recent to oldest [Reference Range]: 1 Peripheral Pulse Rate [60-100 bpm] 70 bp m (07/16/24 2:49 PM) Respiratory Rate [14-20 br/min] 18 br/mi n (07/16/24 2:49 PM) Blood Pressure [89-139/59-89 mmHg] 129/8 0mmHg (07/16/24 2:49 PM) Blood Pressure Location Left arm (07/16/24 2:49 PM) SpO2 [89 %] 97 % (07/16/24 2:49 PM) Social History Social History Type Response Smoking Status Never (less than 100 in lifetime);Never entered on: 07/16/24 Sex Male Sex Representation Male (finding) Patient Care team information Care Team Personnel Name: Etienne Bishop MD Position: FT Physician Member Role: Primary Care Physician Address: [address] [place] [address] Telecom: Care Team Related Persons Name: BOB BERNSTEIN Insurance Providers Guarantor name: REYFARIDA BERNSTEIN [employer] Plan Information #: 1 Payer: CIG[employer] Member Number: [id number] Policy Number: NICCI Group Number: [id number] Health Plan Information #: 2 Payer: [employer] Member Number: [id number] Policy Number: NA Group Number: NA
--- OUTSIDE RECORDS SUMMARY | 2024-07-17 23:59 | XMS_ITS | Continuity of Care Document ---
Author Organization [facility] Address Unknown Care Team Providers Care Blood Bank Business Manager Name Role Phone Edna Etienne Primary Care Physician [phone] Kim Daly Unavailable Unavailable Encounter [facility] [id number] Date(s): 07/17/24 - 07/17/24 [address] [place] [address]- Discharge Disposition: Home (Routine DC) Attending Physician: Fabián Sorto MD Admitting Physician: Fabián Sorto MD Referring Physician: Fabián Sorto MD Encounter Type: Outpatient Allergies, Adverse Reactions, Alerts Substance Criticality Severity Reaction Reaction Severity Status penicillins Rash Hives Active Assessment and Plan Future Appointments Appointment Date:07/21/2024 01:15:00 PM Scheduled Provider: Location:[facility] Appointment Type:Surgery FT Appointment Date:01/16/2025 01:00:00 PM Scheduled Provider:Fabián Sorto MD Location:[facility] Appointment Type:Cardiology Follow Up (FT) Medications aspirin 325 mg Tab 325 mg [...] Date: 07/14/24 Status: Ordered Repeat number: 1 [place] 325 mg-5 mg oral tablet See Instructions, [...] Body Site Status Dental surgical procedure Completed Social History Social History Type Response Smoking Status Never (less than 100 in lifetime);Never entered on: 07/16/24 Sex Male Sex Representation Male (finding) Patient Care team information Care Team Personnel Name: Etienne Bishop MD Position: FT Physician Member Role: Primary Care Physician [address]: [address] [place] [address] Telecom: Name: Kim Daly Position: [employer] [facility]reach Office Staff Search Member Role: Other Care Team Related Persons Name: BOB BERNSTEIN Name: BOB BERNSTEIN Insurance Providers Guarantor name: REY BERNSTEIN Health Plan Information #: 1 Payer: [employer] Member Number: [id number] Policy Number: NA Group Number: [id number] Health Plan Information #: 2 Payer: CIGNA Member Number: [id number] Policy Number: NA Group Number: NA
--- OUTSIDE RECORDS SUMMARY | 2024-07-21 09:53 | XMS_ITS ---
Author Name Auto Generated Organization [facility] Care Team Providers Care Tiller Worker Name Role Phone Othman, Mahmoud Admitting Unavailable Othman, Mahmoud Attending Unavailable Othman, Mahmoud Referring Unavailable Othman, Mahmoud Consulting Unavailable Othman, Mahmoud Consulting Unavailable Othman, Mahmoud Consulting Unavailable Minor, Newton T Admitting Unavailable Minor, Newton T Attending Unavailable Minor, Newton T Referring Unavailable Minor, Newton T Admitting Unavailable Minor, Newton T Attending Unavailable Minor, Newton T Referring Unavailable Othman, Mahmoud Admitting Unavailable Othman, Mahmoud Attending Unavailable Minor, Newton T Referring Unavailable Minor, Newton T Admitting Unavailable Minor, Newton T Attending Unavailable Minor, Newton T Referring Unavailable MINOR, NEWTON T Attending Unavailable PROBLEMS No Problem Records Found PROCEDURES No Procedure Records Found RESULTS PROGRESS NOTE-PHYSICIAN Observed: 2024 3:18 PM Status: F Source: [facility] Progress Note-Physician Patient: REY BERNSTEIN Age: 54 years Sex: Male : 1970 Associated Diagnoses: None Author: Christian Jones Jr, DO Postoperative Information Postoperative disposition: Postoperative disposition: To PACU. Optimetrix number: Optimetrix number [id number]. Anesthetic utilized: General. Health Status Allergies: Allergic Reactions (Selected) Severity Not Documented Penicillins- Rash and hives. Physical Examination Vital Signs 07/21/2024 14:42 EDT Heart Rate Monitored 66 bpm SpO2 98 % 07/21/2024 14:42 EDT Systolic Blood Pressure 154 mmHg HI Diastolic Blood Pressure 85 mmHg Mean Arterial Pressure, Monitered 108 mmHg 07/21/2024 14:42 EDT Respiratory Rate 15 br/min 07/21/2024 14:35 EDT SpO2 97 % 07/21/2024 14:35 EDT Heart Rate Monitored 70 bpm Respiratory Rate Monitored 10 br/min 07/21/2024 14:35 EDT Temperature Temporal Artery 36.8 DegC Systolic Blood Pressure 150 mmHg HI Diastolic Blood Pressure 78 mmHg Blood Pressure Location Right arm Mean Arterial Pressure, Cuff 102 mmHg Pain Assessment: Controlled. General: Awake, Alert, Appropriate. Respiratory: Adequate air exchange. Cardiovascular: Stable, Normal peripheral perfusion. Neurological: Normal sensory function, Normal motor function. Assessment Anesthetic outcome No anesthetic complications noted. Adequate pain relief. able to void without difficulty, able to ambulate with assist, tolerating PO intake, no N/V. Review / Management Condition: Stable. Plan Transfer/Discharge: Transfer/Discharge Discharge when meets criteria ( To home ). Result Comment: Electronical ly Signed By: Christian Jones Jr, DO\.br\Date and Time Signed: 07/23/24 08:26 EDT PATIENT EDUCATION - TEXT Observed: 07/21 3:00 PM Status: C Source: [facility] Patient Education - Text [place], [place] [facility] DISCHARGE INSTRUCTIONS: KNEE ARTHROSCOPY Diet Begin with a liquid diet and advance to your normal diet as tolerated. Activity You may gradually increase your activity as tolerated. Until your first post-operative visit elevate your knee higher than your heart, whenever you are sitting or lying down. Knee swelling will gradually decrease after surgery. Increased swelling is usually a sign of over-activity and should be a signal for you to be less active and apply ice as needed. Your exercise program is the han to successful rehabilitation of your knee. Do the exercises daily as instructed. You will receive further exercises at your next visit as needed. The possible need for Physical Therapy will then be discussed. You may bear weight on your operative leg, use your crutches or walker for walking until you can lift 5 pounds with a straight leg raise on the affected side. This is important for protection of your knee after surgery. Although you will find that you can walk without crutches or walker, it is not healthy for you until you regain adequate muscle strength. Use your crutches or walker until your limp is gone. You are encouraged to bend your knee as this is comfortably tolerated. Do not forcefully bend until you have permission by your surgeon. Driving is legal, but if you are involved in an accident, you must be able to prove that you maintained full control of your vehicle. For this reason, it is advised that you do not drive until your strength returns, generally in 1-2 weeks. Similarly, all sports activities are discouraged, at least until your first post-operative visit at which time we will discuss how and when to resume sports. Increased Pain Usually this is the result of over-activity and should respond well to rest, ice and elevation. If this does not provide relief, take the pain medication as directed but do not return to activity. If severe pain persists despite rest, elevation and medication, contact your surgeon. You will be given a prescription for pain medication when you leave the hospital. Please inform us of any known drug allergy. If you have any problems with the medication, it should be discontinued and our office notified. The sensation of splashing of fluid inside the knee is not cause for concern. It represents residual fluids from surgery and they will be absorbed generally in the first few days. Elevation of the leg and application of an ice pack to the knee will minimize swelling and discomfort in the first 48 hours after surgery. Incisions The portals of entry may be sore and develop bruising over the next several days. The bruising eventually resolves and does not require any special care. There may be some numbness around the portals that can take several days or several weeks to resolve as the swelling subsides. Do not apply creams or lotions to your knee. Your portals will heal best if kept dry. [facility] Discharge Instructs for Knee Arthroscopy Page 2 Dressing A soft compression dressing has been applied to your knee. This dressing should be comfortable and absorb any leakage of fluid after surgery. Although the dressing may become moist or blood stained, this is not usually a cause for concern. If this persists beyond 2-3 days, notify your surgeon. You may remove the dressing two days after your surgery. You may possibly have tape strips or sutures under the dressing. Do not remove these if present. Apply bandaids to the operative sites and keep these clean until your first post-operative visit. Apply betadine and band-aids to the puncture wounds in the morning (and again in the evening as needed) on a daily basis. Bathing You may shower after surgery. Bathing or soaking in water should be avoided until your first post-operative visit. Keep incisions dry until healed over. Precautions If you develop fever (101 degrees or above), increasing pain (not relieved by rest, elevation, ice and medication as prescribed), redness or persistent swelling in your calves or feet that doesn't respond to elevation, please contact the office or the hospital. If you notice increasing drainage from the operative portals after the first few days, this should also be reported. Return Visit Your post-operative follow-up appointment is generally between 10 and 14 days after surgery and you will be given an appointment card. Do not hesitate to call the office or the hospital if any problems or questions arise before your appointment. Newton Minor, DO [facility] [address] [place] [address] Reviewed: 03-29 OPERATIVE REPORT Observed: 07/21/2024 2:06 PM Status: F Source: [facility] Operative Report SURGERY DATE: 07/21/2024 PREOPERATIVE DIAGNOSIS: Right knee medial meniscal tear with underlying osteoarthritis POSTOPERATIVE DIAGNOSIS: Right knee medial meniscal tear with underlying osteoarthritis with lateral meniscal tear OPERATION: Right knee arthroscopy with partial medial meniscectomy, partial lateral meniscectomy, and chondroplasty of medial and patellofemoral joints ANESTHESIA: General ESTIMATED BLOOD LOSS: Zero SPECIMEN: None IMPLANTS: None COMPLICATIONS: None TOURNIQUET TIME: See nurse's notes. HISTORY AND INDICATIONS: Rey is a 54-year-old large male with elevated body mass index with recalcitrant right knee pain. He has seen other physicians. He has tried physical therapy and weight loss. He has tried cortisone injections. They have attempted to authorize viscosupplementation. He has a displaced medial meniscal tear. The pros, cons, risks, benefits, and reasonable expectations of above procedure were discussed, consent form signed and charted, sites marked preoperatively, all questions answered preoperatively. PROCEDURE: Rey was taken to the Operating Room and placed in supine position. Anesthesia was provided. A well-padded tourniquet was placed on the right upper thigh, and the leg was placed in a leg montes. It was prepped and draped in sterile fashion. A time-out procedure occurred consistent with the consent form, History and Physical, preoperative marked site. Landmarks were identified. Once time-out was confirmed, an anterolateral horizontal portal incision was made, and the arthroscope entered the knee joint. General inspection showed moderate degenerative change of the patella. The trochlea had one small circular area less than the size of a dime that was down to grade 4. Both gutters were clean and free. The medial joint had a large complex displaceable medial meniscal tear in the 2:00 position. Anteromedial portal was established. The anterior and posterior roots were stable. Utilizing a hook probe, the tear was delineated. There was grade 2 or early 3 degenerative change of the medial femoral condyle and grade 2 degenerative change of the medial tibial plateau, no exposed bone medially. Utilizing a basket biter as well as 4.0 shaver, a partial medial meniscectomy was performed with stable margins. Chondroplasty was performed of the medial femur as well. The anterior cruciate ligament and posterior cruciate ligament were intact to inspection and probing. Partial meniscectomy had stable margins. The lateral joint had a lesser degree of arthritis with just softening and no chondroplasty indicated. There was a radial tear that was mild in size of the mid body. Partial lateral meniscectomy was performed with stable margins. It was copiously irrigated out. Chondroplasty was performed of the patellofemoral joint. Final pictures were taken. One simple 4-0 nylon suture was placed in each of the two portal incisions. Bacitracin, Adaptic. 20 cc of 1% plain lidocaine was injected. 4x4's, ABD, soft roll wrap were provided. Obie was awakened from anesthesia and transferred to the Recovery Room in stable and satisfactory condition. CASE: Clean and elective COUNTS: Sponge and needle count correct SPECIMEN: None PATIENT CONDITION: Satisfactory Juno Whitman Dictated: 07/21/2024 [id number] Transcribed: 07/21/2024 cc:Etienne Bishop MD Result Comment: Electronical ly Signed By: Newton Minor DO\.br\Date and Time Signed: 07/23/24 14:31 EDT MAIN OR PACU I RECORD Observed: 07/22/19 1:43 PM Status: F Source: [facility] Main OR PACU I Record PACU Phase I Document Type FT Summary Primary Physician: Newton Minor DO Finalized Date/Time: 07/21/24 14:54:42 Pt. Name: ERY BERNSTEIN/Sex: 1970 Male Med Rec #: [id number] Physician: Newton Minor DO Financial #: [id number] Pt. Type: A Room/Bed: [facility]/ Admit/Disch: 07/21/24 09:53:57 - Institution: Case Times PACU I FT Pre-Care Text: Identifies barriers to communication and implements measures to provide psychological support Develops individualized plan of care, and ensures continuity of care Maintains patient's dignity and privacy, and maintains patient confidentiality Identifies and reports philosophical, cultural, and spiritual beliefs and values Identifies individual values and wishes concerning care Implements aseptic technique, and administers prescribed antibiotic therapy and immunizing agents as ordered Evaluates postoperative tissue perfusion Implements thermoregulation measures, and monitors body temperature Evaluates postoperative respiratory status Evaluates postoperative cardiac status Evaluates postoperative neurological status Assesses pain control, collaborated in initiating patient-controlled analgesia and implements alternative methods of pain control Verifies allergies, administers prescribed medications and solutions, evaluates response to medications Entry 1 In PACU I 07/21/24 14:10:00 Discharge from PACU 07/21/24 14:40:00 I Outcomes Met? Yes Last Modified By: Marleni Gaytan RN 07/21/24 14:54:20 Post-Care Text: The patient demonstrates knowledge of the expected response to the operative or invasive procedure The patient's care is consistent with the individualized perioperative plan of care The patient's right to privacy is maintained The patient's value system, lifestyle, ethnicity, and culture are considered, respected, and incorporated into the perioperative plan of care The patient participates in decisions affecting his or her perioperative plan of care The patient is free from signs and symptoms of infection The patient has wound/tissue perfusion consistent with or improved from baseline levels established preoperatively The patient is at or returning to normothermia at the conclusion of the immediate postoperative period The patient's respiratory function is consistent with or improved from baseline levels established preoperatively The patient's cardiovascular status is consistent with or improved from baseline levels established preoperatively The patient's cardiovascular status is consistent with or improved from baseline levels established preoperatively The patient demonstrates and/or reports adequate pain control throughout the perioperative period The patient received appropriate medication(s), safely administered during the perioperative period Acuity Level PACU I FT Entry 1 Start Time 07/21/24 14:10:00 Stop Time 07/21/24 14:40:00 Acuity Level Acuity Level I Last Modified By: Marleni Gaytan RN 07/21/24 14:54:38 Finalized By: Marleni Gaytan RN Document Signatures Signed By: Marleni Gaytan RN 07/21/24 14:54 MAIN OR INTRAOPERATIVE RECORD Observed: 07/21/2024 1:43 PM Status: C Source: [facility] Main OR Intraoperative Recor d IntraOp Document Type FT Summary Primary Physician: Newton Minor DO Finalized Date/Time: 07/22/24 10:28:33 Pt. Name: REY BERNSTEIN/Sex: 1970 Male Med Rec #: [id number] Physician: Newton Minor DO Financial #: [id number] Pt. Type: A Room/Bed: [place] [address] Admit/Disch: 07/21/24 09:53:57 - 07/21/24 15:50:00 Institution: Case Times FT Entry 1 Patient Times In Room 07/21/24 13:26:00 Out Room 07/21/24 14:08:00 Procedure Times Start 07/21/24 13:43:00 Stop 07/21/24 14:04:00 Anesthesia Times Start 07/21/24 13:26:00 Stop 07/21/24 14:08:00 Last Modified By: Frank Oliva 07/21/24 14:32:11 Case Attendance FT Entry 1 Entry 2 Entry 3 Case Attendee Harriet MADRIGAL, REPORTING LEAD, Beck Newton Minor DO, CST, Florence Borges Role Performed REPORTING LEAD Surgeon - Primary REVENUE COLLECTOR/SA Time In 07/21/24 13:26:00 07/21/24 13:26:00 07/21/24 13:26:00 Time Out 07/21/24 14:08:00 07/21/24 14:08:00 07/21/24 14:08:00 Procedure KNEE ARTHROSCOPY(Right) KNEE ARTHROSCOPY(Right) KNEE ARTHROSCOPY(Right) Comments Last Modified By: Frank Oliva Terry T Sweene, Terry T 07/21/24 14:32:13 07/21/24 14:32:13 07/21/24 14:32:13 Entry 4 Entry 5 Entry 6 Case Attendee Frank Oliva Alfons Ii F Dent CST, [place] Role Performed Fractionating Still Operator - Primary Fractionating Still Operator - Relief Scrub - Primary Time In 07/21/24 13:26:00 07/21/24 13:26:00 07/21/24 13:26:00 Time Out 07/21/24 14:08:00 07/21/24 13:40:00 07/21/24 14:08:00 Procedure KNEE ARTHROSCOPY(Right) KNEE ARTHROSCOPY(Right) KNEE ARTHROSCOPY(Right) Comments Last Modified By: Frank Oliva Terry T Sweene, Terry T 07/21/24 14:32:13 07/21/24 14:32:13 07/21/24 14:32:13 Perioperative Protocols FT Pre-Care Text: Implements protective measures prior to operative or invasive procedure, confirms identity before the operative or invasive procedure, verifies operative procedure, surgical site, and laterality Entry 1 Procedure(s) KNEE ARTHROSCOPY(Right) Patient Identity Birthday, ID Band Verified (select at Check, Patient least 2): Participation Consents / H and P Anesthesia Consent, Operative Site Present Verified H&P, Surgery/Procedure Marking Verified Consent Surgical Site Yes Laterality Verified Yes Verified Procedure Verified Yes Correct Patient Yes Position Verified Availability Equipment, Implant, Prep Dry Yes Verified (If Medication Applicable) PreOp Antibiotic Yes Time Out Harriet MADRIGAL, REPORTING LEAD, Beck Jose Miguel Puckett N., Ingrid FRANCIS, Juanjo Bowman CST, Hazel Sen Terry T, Letrondo, Alfons Ii F, Glo GOULD, [place]cl[place]is Time Out Complete 07/21/24 13:33:00 Outcomes Met? Yes Last Modified By: Frank Oliva 07/21/24 13:51:43 Post-Care Text: The patient is free from signs and symptoms of injury caused by extraneous objects Allergy Information FT Pre-Care Text: Verifies allergies Entry 1 Allergies Reviewed? Yes Allergies Reviewed Self/Patient With Outcomes Met? Yes Last Modified By: Frank Oliva 07/21/24 13:51:51 Post-Care Text: The patient received appropriate medication(s) safely administered during the perioperative period Surgical Procedures FT Entry 1 Procedure Description Procedure KNEE ARTHROSCOPY Modifiers Right Surgeon Description RIGHT KNEE ARTHROSCOPY, PARTIAL MEDIAL AND LATERAL MENISCECTOMY, MEDIAL PATELLOFEMORAL CHONDROPLASTY Primary Procedure Yes Primary Surgeon Newton Minor DO 07/21/24 13:43:00 Stop 07/21/24 14:04:00 Anesthesia Type General Surgical Service Orthopedics Wound Class 1 - Clean Last Modified By: Frank Oliva 07/21/24 14:33:22 General Case Data FT Pre-Care Text: Classifies surgical wound, implements aseptic technique, initiates traffic control Entry 1 Case Information OR OR 5 FT Case Level Level 3 Wound Class 1 - Clean Specialty Orthopedics ASA Class 3 Preop Diagnosis RIGHT KNEE MEDIAL Postop Same As Preop Yes MENISCAL TEAR Postop Diagnosis RIGHT KNEE MEDIAL Outcomes Met? Yes MENISCAL TEAR Last Modified By: Frank Oliva 07/21/24 13:52:05 Post-Care Text: The patient is free from signs and symptoms of infection Skin Assessment (Pre Procedure) FT Pre-Care Text: Implements protective measures to prevent skin/ tissue injury due to thermal or mechanical sources Evaluates for signs and symptoms of physical injury to skin and tissue Entry 1 Skin Integrity Intact, [place], Warm, & Skin Abnormality No Dry Outcomes Met? Yes Last Modified By: Frank Oliva 07/21/24 13:52:14 Post-Care Text: The patient is free from signs and symptoms of injury caused by extraneous objects Patient Positioning FT Pre-Care Text: Identifies physical alterations that require additional precautions for procedure-specific positioning, verifies presence of prosthetics or corrective devices, positions the patient, evaluates the patient for signs and symptoms of injury as a result of positioning Entry 1 Procedure KNEE ARTHROSCOPY(Right) Body Position Supine Feet Uncrossed? Yes Left Arm Position Extended on Padded Arm Board Right Arm Position Extended on Padded Arm Left Leg Position Dangling Board Right Leg Position Held on Field Positioning Device Pillow Under Head Large, Safety Strap, Well Leg Montes, Arthroscopy Leg Montes Press Points Checked Yes By Harriet MADRIGAL, MAVERICK, Edilson Anna Alfons Ii F Outcomes Met? Yes Last Modified By: Frank Oliva 07/21/24 13:52:49 Post-Care Text: The patient is free from signs and symptoms of injury related to positioning Patient Care Devices FT Pre-Care Text: Implements protective measures to prevent skin/ tissue injury due to thermal or mechanical sources Entry 1 Entry 2 Entry 3 Equipment Type ARTHREX DUALWAVE ARTHROSCOPY KNEE MONTES INTELLICART SUCTION UNIT IRRIGATION PUMP Equipment Number CART 1 Equipment Setting 350 MM HG Outcomes Met? Yes Yes Yes Last Modified By: Frank Oliva Terry T Sweene, Terry T 07/21/24 13:56:05 07/21/24 13:56:05 07/21/24 13:56:05 Entry 4 Entry 5 Entry 6 Equipment Type MISTRAL FORCED AIR MONITOR CHARGE SURGERY ORTHO ARTHREX ABRADER WARMING SYSTEM UNIT SYSTEM Equipment Number OB 1 Equipment Setting 43 C Outcomes Met? Yes Yes Yes Last Modified By: Frank Oliva Terry T Sweene, Terry T 07/21/24 13:56:05 07/21/24 13:56:05 07/21/24 13:56:05 Entry 7 Entry 8 Equipment Type TOURNIQUET LILI VIDEO SYSTEM Equipment Number D Equipment Setting 300 MM HG Outcomes Met? Yes Yes Last Modified By: Frank Oliva Terry T 07/21/24 13:56:05 07/21/24 13:56:05 Post-Care Text: The patient is free from signs and symptoms of injury caused by extraneous objects Transport To OR FT Pre-Care Text: Transports according to individual needs. Evaluates for signs and symptoms of skin and tissue injury as a result of transfer or transport Entry 1 Via Cart By Fidel Waggoner Ii Safety Precautions Side Rails Up Outcomes Met? Yes Last Modified By: Frank Oliva 07/21/24 13:56:18 Post-Care Text: The patient is free from signs and symptoms of injury related to transfer/transport Counts Verification FT Pre-Care Text: Performs required counts Entry 1 Entry 2 Procedure(s) KNEE ARTHROSCOPY(Right) KNEE ARTHROSCOPY(Right) Type Initial Final Items Sponges, Sharps Sponges, Sharps Status Correct Correct Time 07/21/24 13:29:00 07/21/24 13:58:00 By Frank Oliva Dent Sweene, Terry T, Dent REVENUE COLLECTOR, Jaskaran REVENUE COLLECTOR, [place] Outcomes Met? Yes Yes Last Modified By: Frank Oliva Terry T 07/21/24 13:57:04 07/21/24 14:32:31 Post-Care Text: The patient is free from signs and symptoms of injury caused by extraneous objects Skin Prep FT Pre-Care Text: Performs skin preparations Entry 1 Procedure KNEE ARTHROSCOPY(Right) Prep Agents Chloraprep/Dry Prior to Draping Start Dry Time 07/21/24 13:35:00 Stop Dry Time 07/21/24 13:38:00 Hair Removal Methods Not Indicated By Fidel Waggoner Ii Outcomes Met? Yes Last Modified By: Frank Oliva 07/21/24 13:58:39 Post-Care Text: The patient is free from signs and symptoms of infection Departure From OR FT Pre-Care Text: Transports according to individual needs. Evaluates for signs and symptoms of skin and tissue injury as a result of transfer or transport. Entry 1 Via Cart Safety Precautions Safety Strap, Side Rails Up PostOp Destination PACU Transported By Frank Oliva Patient Status Stable Report Given Marleni Gaytan RN To/Hand Off Communication Skin. Condition Warm, [place], Dry Description PORT SITES WELL APPROXIMATED. DRESSING DRY AND INTACT. Airway Maintenance Oxygen in Use? Yes Airway Device Simple Mask Flow Rate 8 L Outcomes Met? Yes Last Modified By: Frank Oliva 07/21/24 14:34:10 Post-Care Text: The patient is free from signs and symptoms of injury related to transfer/transport General Comments: VERBAL AND WRITTEN HANDOFF REPORT GIVEN TO PACU NURSE. T HAZEL GAUTAM. Dressing/Packing FT Pre-Care Text: Administers care to wound sites Entry 1 Type Dressing Items DRESSING ADAPTIC 3 X 3 Site and Details DRESSING RIGHT KNEE - Outcomes Met? Yes ADAPTIC, 4X4, ABD, CAST PADDING, JOJO WRAP. Last Modified By: Frank Oliva 07/21/24 14:34:44 Post-Care Text: The patient is free from signs and symptoms of infection Medication Administration FT Pre-Care Text: Verifies allergies, administers prescribed medications and solutions, administers prescribed antibiotic therapy and immunizing agents as ordered, evaluates response to medications Administers prescribed medications and solutions Entry 1 Route of Admin Field Expiration Date Yes Verified Ordered By Newton Minor DO Transcribed/To Frank Oliva Field By Administered By Newton Minor DO Outcomes Met? Yes Last Modified By: Frank Oliva 07/21/24 13:59:43 Post-Care Text: The patient received appropriate medication(s) safely administered during the perioperative period For Ld please see scanned medication reconcilliation form for medications used at the field during the procedure. Tourniquet FT Pre-Care Text: Implements protective measures to prevent skin/tissue injury due to mechanical sources Entry 1 Tourniquet Type TOURNIQUET CUFF PURPLE Setting 300 mmHg 34 X 4 Equipment Number B Placement Right Upper Thigh Cuff Size 34 267 Padding Under Cuff Yes Applied Applied By Newton Minor DO, Skin Assessment Unremarkable AmitagurmeetFidel francis Ii F Before Inflation Skin Assessment Unremarkable After Inflation Tourniquet Times Inflated 07/21/24 13:43:00 Outcomes Met? Yes Last Modified By: Frank Oliva 07/21/24 14:00:52 Post-Care Text: The patient is free from signs and symptoms of injury caused by extraneous objects Temperature Control Entry 1 Temperature Control BLANKET MISTRAL AIR Quantity 1 Aid PLUS UPPER BODY Fluid/[place] Unit Mistral warming system Setting 43 C Body Site Upper anterior torso Comments OB1 Last Modified By: Frank Oliva 07/21/24 14:31:32 Sign Out FT Entry 1 Before Patient Leaves OR Nurse verbally Yes Nurse verbally Yes confirms with the confirms with the team the name of team that the procedure(s) instrument, sponge, recorded and needle counts are correct (or N/A) Nurse verbally n/a Nurse verbally Yes confirms with the confirms with the team how the team whether there specimen is labeled are any equipment (including patient problems to be name), if applicable addressed Sign Out Complete 07/21/24 13:58:00 Last Modified By: Frank Oliva 07/21/24 14:31:56 Case Comments <None> Finalized By: Meghana Rico CST Document Signatures Signed By: Frank Oliva 07/21/24 14:34 Meghana Rico CST 07/22/24 10:28 Unfinalized History Date/Time Username Reason for Unfinalizing Freetext Reason for Unfinalizing 07/22/24 10:27 [id number] Other - See Nurses Notes 07/22/24 Chart opened to review and send charges [facility]oth CSFA MAIN OR PREOPERATIVE RECORD Observed: 1:15 PM Status: F Source: [facility] Main OR Preoperative Record PreOp Document Type FT Summary Primary Physician: Newton Minor DO Finalized Date/Time: 07/21/24 13:45:59 Pt. Name: REY BERNSTEIN /Sex: 1970 Male Med Rec #: [id number] Physician: Ingrid FRANCISNewton Financial #: [id number] Pt. Type: A Room/Bed: [facility] Admit/Disch: 07/21/24 09:53:57 - Institution: Case Times PreOp FT Pre-Care Text: Verifies consent for planned procedure, identifies individual values and wishes concerning care, includes family members in perioperative teaching Entry 1 Patient Times. In Pre Surgery 07/21/24 09:55:00 Out Pre Surgery 07/21/24 13:24:00 Outcomes Met? Yes Last Modified By: Frank Oliva 07/21/24 13:45:58 Post-Care Text: The patient participates in decisions affecting his or her perioperative plan of care Finalized By: Frank Oliva Document Signatures Signed By: Frank Oliva 07/21/24 13:45 PROGRESS NOTE-PHYSICIAN Observed: 2024 12:24 PM Status: F Source: [facility] Progress Note-Physician Patient: REY BERNSTEIN Age: 54 years Sex: Male : 1970 Associated Diagnoses: None Author: Christian Jones Jr, DO Preoperative Information Anesthesia Preop Info: Time patient last ate or drank 07/21/2024 00:00:00. Anesthesia history: Patient history: None. Family history+: None. Informed consent: Signed by patient. Re-evaluation prior to induction: Initial evaluation reviewed: No significant change. Review of Systems Eye: Negative except as documented in history of present illness. Ear/Nose/Mouth/Throat: Negative except as documented in history of present illness. Respiratory: Negative except as documented in history of present illness. Cardiovascular: Negative except as documented in history of present illness. Musculoskeletal: Negative except as documented in history of present illness. Neurologic: Negative except as documented in history of present illness. Health Status Allergies: Allergic Reactions (Selected) Severity Not Documented Penicillins- Rash and hives. Problem list: All Problems High blood pressure / SNOMED CT [id number] / Confirmed Histories Procedure history: Dental surgical procedure ([id number]). Social History Social & Psychosocial Habits Alcohol 07/16/2024 Risk Assessment: Denies Alcohol Use Substance Abuse 07/16/2024 Risk Assessment: Denies Substance Abuse Tobacco 07/16/2024 Risk Assessment: Denies Tobacco Use 07/16/2024 Tobacco Use: Never (less than 100 in l Smokeless tobacco use: Never . Physical Examination Airway: Mallampati classification: II (soft palate, fauces, uvula visible). Respiratory: adequate air exchange. Cardiovascular: Regular rhythm. Plan [place] [employer] (ASA) physical status classification: Class III. Anesthetic Preoperative Plan: Anesthesia General, and Patient educated on benefits, alternatives and inherent risk of anesthesia including, but not all inclusive, Allergic reactions, dental damage, nerve damage and cardio-pulmonary complications and wishes to proceed with anesthetic plan.. Result Comment: Electronical ly Signed By: Christian Jones Jr, DO\.br\Date and Time Signed: 07/22/24 07:38 EDT DISCHARGE INSTRUCTIONS Observed: 025 9:53 AM Status: F Source: [facility] Discharge Instructions REY BERNSTEIN DOB:1970 Visit Date:07/21/2024 Inpatient Discharge Instructions Your Care Team Admitting Physician - Newton Minor DO Referring Physician - Newton Minor DO Reason for Your Visit RIGHT KNEE MEDIAL MENISCAL TEAR Your Diagnosis Acute medial meniscus tear of right knee This Is Your Medications List acetaminophen-hydrocodone (Closter 325 mg-5 mg oral tablet) aspirin (aspirin 325 mg Tab) losartan (losartan 50 mg Tab) Procedure History Dental surgical procedure. What to do next Instructions From Your Doctor Event Name Event Result Discharge Instructions Freetext Aspirin 325mg EC oral daily with food for 3 weeks for blood clot prevention. Discharge Activity Ambulate as tolerated, Arrange for a responsible adult supervision for 24 hours, Expect mild pain, Do not lift more than 5 lbs Discharge Restrictions No driving for 24 hrs, Do not operate machinery or tools, Do not make important decisions for 24 hours, Do not drink alcoholic beverages for 24 hours Discharge Diet(s) Regular, Drink liquids and eat a light meal Call Your Doctor For Persistent or heavy bleeding, Temperature above 101.5 degrees, Redness, swelling, or pus at operative site, Severe pain at the operative site, Persistent vomiting Wound Care Keep incision dry, Remove dressing as instructed Remove Dressing On 2 Discharge Instructions Discharge Instructions Previously Scheduled Follow-Up Appointments Sunday 1:00 PM EST With: Fabián Sorto MD Where[facility] New Follow Up Appointments after Discharge Follow Up with CLARK Whitman When: 08/01/2024 08:00 AM EDT Comments: Keep scheduled appointment Call for any problems. Where: [address] [place], [place] [id number] [facility] (1) Medications What How Much When Why Instructions Next Dose Unchanged acetaminophen-hydrocodone (Closter 325 mg-5 mg oral tablet) See instructions Acute medial meniscus tear of right knee 1-2 tab(s) Oral q4hr PRN Pain. Duration 7 days. Pickup at [facility]pharmacy #[id number] Unchanged aspirin (aspirin 325 mg Tab) 1 Tablets By Mouth Every day Duration: 30 Days Start the day after surgery for blood clot prevention. Pickup at [facility]pharmacy [id number] Unchanged losartan (losartan 50 mg Tab) 1 Tablets By Mouth Every day Pharmacy Information [facility] #[id number]: [address], [place] [id number] [phone] Test Results No qualifying data available. Allergies penicillins (Rash, Hives) Education Materials Common Emergency Awareness Tips IS IT A STROKE? Act FAST and Check for these signs: FACE Does the face look uneven? ARM Does one arm drift down? SPEECH Does their speech sound strange? TIME Call at any sign of stroke Heart Attack Signs Chest discomfort: Most heart attacks involve discomfort in the center of the chest and lasts more than a few minutes, or goes away and comes back. It can feel like uncomfortable pressure, squeezing, fullness or pain. Discomfort in upper body: Symptoms can include pain or discomfort in one or both arms, back, neck, jaw or stomach. Shortness of breath: With or without discomfort. Other signs: Breaking out in a cold sweat, nausea, or lightheaded. Remember, MINUTES DO MATTER. If you experience any of these heart attack warning signs, call to get immediate medical attention! Patient Survey You may receive a survey in the mail asking you about your stay with us. We want to hear from you, please share your experience with us by completing your survey. Thank you for choosing [facility] Jasmin Award Nomination The JASMIN (Diseases Attacking the Immune SYstem) Award is an international recognition program that honors and celebrates the skillful, compassionate care nurses provide every day. Anyone who experiences or observes amazing care being provided by a nurse is encouraged to submit a nomination. To nominate your nurse, use your smart phone to scan the QR code below. Patient Portal You may access all of your results and other medical record information on our secure patient portal. If you are not signed up for this yet, please contact [employer] at [phone] to get signed up today. Patient Name: AMANDEEP REY I have received these discharge instructions and my questions have been answered. Patient/Cotton Presser Name: Patient/Cotton Presser Signature: Relationship to Patient: Witness Name/Signature: Date: Result Comment: Electronical ly Signed By: Aman GAUTAM, Samanta Dee\.br\Date and Time Signed: 07/21/24 14:56 EDT DISCHARGE INSTRUCTIONS Observed: 025 9:53 AM Status: F Source: [facility] Discharge Instructions REY BERNSTEIN :1970 Visit Date:07/21/2024 Inpatient Discharge Instructions Your Care Team Admitting Physician - Newton Minor DO Referring Physician - Newton Minor DO Reason for Your Visit RIGHT KNEE MEDIAL MENISCAL TEAR Your Diagnosis Acute medial meniscus tear of right knee This Is Your Medications List acetaminophen-hydrocodone (Closter 325 mg-5 mg oral tablet) aspirin (aspirin 325 mg Tab) losartan (losartan 50 mg Tab) Procedure History Dental surgical procedure. What to do next Instructions From Your Doctor Event Name Event Result Discharge Instructions Freetext Aspirin 325mg EC oral daily with food for 3 weeks for blood clot prevention. Discharge Activity Ambulate as tolerated, Arrange for a responsible adult supervision for 24 hours, Expect mild pain, Do not lift more than 5 lbs Discharge Restrictions No driving for 24 hrs, Do not operate machinery or tools, Do not make important decisions for 24 hours, Do not drink alcoholic beverages for 24 hours Discharge Diet(s) Regular, Drink liquids and eat a light meal Call Your Doctor For Persistent or heavy bleeding, Temperature above 101.5 degrees, Redness, swelling, or pus at operative site, Severe pain at the operative site, Persistent vomiting Wound Care Keep incision dry, Remove dressing as instructed Remove Dressing On 2 Discharge Instructions Discharge Instructions Previously Scheduled Follow-Up Appointments Sunday 1:00 PM EST With: Fabián Sorto MD Where: [facility] New Follow Up Appointments after Discharge Follow Up with CLARK Whitman When: 08/01/2024 08:00 AM EDT Comments: Keep scheduled appointment Call for any problems. Where: [address] [place] [phone] Your.MD (1) Medications What How Much When Why Instructions Next Dose Unchanged acetaminophen-hydrocodone (Closter 325 mg-5 mg oral tablet) See instructions Acute medial meniscus tear of right knee 1-2 tab(s) Oral q4hr PRN Pain. Duration 7 days. Pickup at [facility]acy #[id number] Unchanged aspirin (aspirin 325 mg Tab) 1 Tablets By Mouth Every day Duration: 30 Days Start the day after surgery for blood clot prevention. Pickup at [id number] Unchanged losartan (losartan 50 mg Tab) 1 Tablets By Mouth Every day Pharmacy Information [facility][id number]: [address] [place], [place] [id number] [phone] Test Results No qualifying data available. Allergies penicillins (Rash, Hives) Education Materials [place], [place] [facility] DISCHARGE INSTRUCTIONS: KNEE ARTHROSCOPY Diet Begin with a liquid diet and advance to your normal diet as tolerated. Activity You may gradually increase your activity as tolerated. Until your first post-operative visit elevate your knee higher than your heart, whenever you are sitting or lying down. Knee swelling will gradually decrease after surgery. Increased swelling is usually a sign of over-activity and should be a signal for you to be less active and apply ice as needed. Your exercise program is the han to successful rehabilitation of your knee. Do the exercises daily as instructed. You will receive further exercises at your next visit as needed. The possible need for Physical Therapy will then be discussed. You may bear weight on your operative leg, use your crutches or walker for walking until you can lift 5 pounds with a straight leg raise on the affected side. This is important for protection of your knee after surgery. Although you will find that you can walk without crutches or walker, it is not healthy for you until you regain adequate muscle strength. Use your crutches or walker until your limp is gone. You are encouraged to bend your knee as this is comfortably tolerated. Do not forcefully bend until you have permission by your surgeon. Driving is legal, but if you are involved in an accident, you must be able to prove that you maintained full control of your vehicle. For this reason, it is advised that you do not drive until your strength returns, generally in 1-2 weeks. Similarly, all sports activities are discouraged, at least until your first post-operative visit at which time we will discuss how and when to resume sports. Increased Pain Usually this is the result of over-activity and should respond well to rest, ice and elevation. If this does not provide relief, take the pain medication as directed but do not return to activity. If severe pain persists despite rest, elevation and medication, contact your surgeon. You will be given a prescription for pain medication when you leave the hospital. Please inform us of any known drug allergy. If you have any problems with the medication, it should be discontinued and our office notified. The sensation of splashing of fluid inside the knee is not cause for concern. It represents residual fluids from surgery and they will be absorbed generally in the first few days. Elevation of the leg and application of an ice pack to the knee will minimize swelling and discomfort in the first 48 hours after surgery. Incisions The portals of entry may be sore and develop bruising over the next several days. The bruising eventually resolves and does not require any special care. There may be some numbness around the portals that can take several days or several weeks to resolve as the swelling subsides. Do not apply creams or lotions to your knee. Your portals will heal best if kept dry. [facility] Discharge Instructs for Knee Arthroscopy Page 2 Dressing A soft compression dressing has been applied to your knee. This dressing should be comfortable and absorb any leakage of fluid after surgery. Although the dressing may become moist or blood stained, this is not usually a cause for concern. If this persists beyond 2-3 days, notify your surgeon. You may remove the dressing two days after your surgery. You may possibly have tape strips or sutures under the dressing. Do not remove these if present. Apply bandaids to the operative sites and keep these clean until your first post-operative visit. Apply betadine and band-aids to the puncture wounds in the morning (and again in the evening as needed) on a daily basis. Bathing You may shower after surgery. Bathing or soaking in water should be avoided until your first post-operative visit. Keep incisions dry until healed over. Precautions If you develop fever (101 degrees or above), increasing pain (not relieved by rest, elevation, ice and medication as prescribed), redness or persistent swelling in your calves or feet that doesn't respond to elevation, please contact the office or the hospital. If you notice increasing drainage from the operative portals after the first few days, this should also be reported. Return Visit Your post-operative follow-up appointment is generally between 10 and 14 days after surgery and you will be given an appointment card. Do not hesitate to call the office or the hospital if any problems or questions arise before your appointment. Newton Minor, DO [facility] [address] [place] [address] Reviewed: 03-29 Common Emergency Awareness Tips IS IT A STROKE? Act FAST and Check for these signs: FACE Does the face look uneven? ARM Does one arm drift down? SPEECH Does their speech sound strange? TIME Call at any sign of stroke Heart Attack Signs Chest discomfort: Most heart attacks involve discomfort in the center of the chest and lasts more than a few minutes, or goes away and comes back. It can feel like uncomfortable pressure, squeezing, fullness or pain. Discomfort in upper body: Symptoms can include pain or discomfort in one or both arms, back, neck, jaw or stomach. Shortness of breath: With or without discomfort. Other signs: Breaking out in a cold sweat, nausea, or lightheaded. Remember, MINUTES DO MATTER. If you experience any of these heart attack warning signs, call to get immediate medical attention! Patient Survey You may receive a survey in the mail asking you about your stay with us. We want to hear from you, please share your experience with us by completing your survey. Thank you for choosing [facility] Jasmin Award Nomination The JASMIN (Diseases Attacking the Immune SYstem) Award is an international recognition program that honors and celebrates the skillful, compassionate care nurses provide every day. Anyone who experiences or observes amazing care being provided by a nurse is encouraged to submit a nomination. To nominate your nurse, use your smart phone to scan the QR code below. Patient Portal You may access all of your results and other medical record information on our secure patient portal. If you are not signed up for this yet, please contact [employer] at [phone] to get signed up today. Patient Name: REY BERNSTEIN I have received these discharge instructions and my questions have been answered. Patient/Cotton Presser Name: Patient/Cotton Presser Signature: Relationship to Patient: Witness Name/Signature: Date: Result Comment: Electronical ly Signed By: Aman GAUTAM, Samanta Dee\Ahmetbr\Date and Time Signed: 07/21/24 15:01 EDT ECHO TRANSTHORACIC W/ CONTRAST Observed: 07/17/2024 8:01 AM Status: F Source: [facility] Echocardiology Procedure Exam Date/Time Accession # [id number] Echo Transthoracic w/ 07/17/2024 09:42 EDT [id number] Fabián Sorto MD Contrast CPT code [id number] Reason for Exam (Echo Transthoracic w/ Contrast) Preop clearance I10;Hypertension Report [facility] [address] [place] [address] Adult Echocardiogram Report Name: REY BERNSTEIN Study Date: 07/17/2024 08:05 AM BP: 158/89 mmHg Patient Location: [facility] Ambulatory(s) [facility] [place] HR: 75 : 1970 Gender: Male Height: 67 in Age: 54 yrs Ethnicity: T Weight: 340 lb Reason For Study: Preop clearance I10;Hypertension BSA: 2.5 m2 History: HTN,Morbid obesity Ordering Physician: Tee Referring Physician: Fabián Sorto Performed By: Rica Clyaton, RDMS, RVT Interpretation Summary The left ventricle is normal in size. mild to moderate left ventricular hypertrophy. The left ventricular ejection fraction is normal. Ejection Fraction = 60-65%. Grade I diastolic dysfunction, (abnormal relaxation pattern). Procedure A complete two-dimensional transthoracic echocardiogram was performed using contrast (2D, M-mode, spectral and color flow Doppler). Study quality is technically suboptimal. Left Ventricle The left ventricle is normal in size. mild to moderate left ventricular hypertrophy. The left ventricular ejection fraction is normal. Ejection Fraction = 60-65%. No obvious regional wall motion abnormalities noted. Grade I diastolic dysfunction, (abnormal relaxation pattern). Echocardiology Report Left Atrium The left atrium is mildly dilated. Right Atrium Right atrial size is normal. Right Ventricle The right ventricle is not well-seen but likely to be normal. TAPSE 2.3 cm. Aortic Valve Aortic valve appears to be sclerotic but opens well. Mitral Valve Mitral valve leaflets mildly thickened. Tricuspid Valve There is trace tricuspid regurgitation. Right ventricular systolic pressure is normal. Pulmonic Valve Not well-seen. Arteries The aortic root is normal in size. Venous The inferior vena cava was not visualized during the exam. Effusion There is no pericardial effusion. Echos noted within the pericardial space suggestive of adipose tissue . MMode/2D Measurements & Calculations RVDd: 3.7 cm LVIDd: 5.1 cm FS: 43.2 % Ao root diam: 3.6 cm IVSd: 1.3 cm LVIDs: 2.9 cm EDV(Teich): 125.5 ml Ao root area: 10.0 cm2 LVPWd: 1.5 cm ESV(Teich): 32.6 ml LA dimension: 4.3 cm EF(Teich): 74.0 % LVOT diam: 2.3 cm LVLd ap4: 9.9 cm EDV(MOD-sp2): 95.5 ml SV(MOD-sp4): 94.4 ml LVOT area: 4.1 cm2 EDV(MOD-sp4): 178.0 ml ESV(MOD-sp2): 25.8 ml LVLs ap4: 8.6 cm EF(MOD-sp2): 73.0 % ESV(MOD-sp4): 83.6 ml EF(MOD-sp4): 53.0 % TAPSE: 2.3 cm RV Base_phl: 3.8 cm RVIDd/LVIDd: 0.72 EF (MOD-bp): 63.6 % RV Length_phl: 8.1 cm RV Mid_phl: 3.2 cm LA Vol Index: 19.5 ml/m2 Doppler Measurements & Calculations MV E max rancho: 88.1 cm/sec MV dec time: 0.23 sec Ao V2 max: 176.0 cm/sec LV V1 max P.0 mmHg MV A max rancho: 113.0 cm/sec Ao max P.4 mmHg LV V1 mean P.0 mmHg Echocardiology Report MV E/A: 0.78 Ao V2 mean: 115.0 cm/sec LV V1 max: 122.0 cm/sec Lat Peak E' Rancho: 9.5 cm/sec Ao mean P.0 mmHg LV V1 mean: 79.4 cm/sec E/E' Lat: 9.3 Ao V2 VTI: 33.6 cm LV V1 VTI: 24.9 cm Med Peak E' Rancho: 5.4 cm/sec E/E' Med: 16.2 SOSA(I,D): 3.0 cm2 SOSA(V,D): 2.8 cm2 SV(LVOT): 101.3 ml TR max rancho: 247.3 cm/sec AV VR: 0.69 TR max P.5 mmHg SOSA(VTI)/BSA_phl: 1.2 FINAL REPORT Dictated: 07/17/2024 8:05 am Fabián Sorto MD Signed (Electronic Signature): 07/17/2024 11:00 am Signed by: Fabián Sorto MD Transcribed by: MICKEY Technologist: [facility]/CLINIC NOTE Observed: 07/16/2024 2:46 PM Status: C Source: [facility] Heart and Vascular Office/Cl inic Note Chief Complaint New Patient - Abn. EKG- Surgery Clearance History of Present Illness This is a pleasant 54-year-old male with past medical history for hypertension that was recently diagnosed currently on losartan, morbid obesity, obstructive sleep apnea? Who did present to the office for preop evaluation. He is supposed to go for right knee scope surgery next Sunday. From cardiac standpoint he denies any chest pain or shortness of breath. He does his usual activities without any limitations. He was able to do some yard work over the weekend. He denies any prior cardiac evaluation. He does report chronic lower extremity swelling that gets worse over the summertime. Patient denies any prior history of smoking using drugs or drinking alcohol. He denies syncope or presyncope palpitation. No shortness of breath. He thinks he has sleep apnea but does not use a CPAP machine Review of Systems PHQ Score Initial Depression Screen Score: 0 SCORE As per HPI Physical Exam Vitals & Measurements HR: 70(Peripheral) RR: 18 BP: 129/80 SpO2: 97% HT: 67 in HT: 170 cm WT: 154.2 kg WT: 339.952 lb BMI: 53.36 Very pleasant no acute distress Heart regular rate and rhythm S1-S2. Lungs decreased breath sounds. Abdomen obese Extremities bilateral leg swelling +2 Assessment/Plan Preop clearance for right knee scope. Patient is going for low risk surgery however he does have morbid obesity and hypertension. He denies any active cardiac symptoms. He does have some chronic lower extremity swelling which I expect to be due to his morbid obesity/venous insufficiency.. I would recommend obtaining 2D echo to assess his LV function/check his PA pressure. Will make final recommendation pending his echo. His EKG did show incomplete right bundle branch block which is likely related to his morbid obesity/sleep apnea. Hypertension blood pressure seems to be well-controlled we will continue current management. Patient was advised on losing weight watching his diet. Chronic bilateral lower extremity swelling likely venous insufficiency/morbid obesity patient was advised to keep his leg elevated compression stocking watch salt intake. Weight loss program. Exercise program Thank you for the referral we will follow with you. Ordered: Echo Transthoracic Complete Follow-up No qualifying data available Problem List/Past Medical History Ongoing No qualifying data Historical No qualifying data Procedure/Surgical History Dental surgical procedure. Medications acetaminophen-hydrocodone 325 mg-5 mg oral tablet, 1 tab(s), Oral, q4hr, PRN aspirin 325 mg Tab, 325 mg= 1 tab(s), Oral, Daily HYDROmorphone 1 mg/mL injectable solution, 1 mg= 1 mL, IV Push, q2hr, PRN losartan 50 mg Tab, 50 mg= 1 tab(s), Oral, Daily morphine 2 mg/mL Inj, 2 mg= 1 mL, IV Push, q4hr, PRN morphine 4 mg/mL Inj, 4 mg= 1 mL, IV Push, q4hr, PRN Closter 325 mg-5 mg oral tablet, See Instructions, PRN Zofran 4 mg/2 mL Injection, 4 mg= 2 mL, IV Push, q4hr, PRN Allergies penicillins (Rash, Hives) Social History Alcohol - Denies Alcohol Use, 07/14/2024 Substance Abuse - Denies Substance Abuse, 07/14/2024 Tobacco - Denies Tobacco Use, 07/14/2024 Never (less than 100 in lifetime) Tobacco Use:. Never Smokeless Tobacco Use:., 07/16/2024 Family History Family history is negative Echo was performed on 07/17/2024. Patient is cleared to proceed with his knee scope surgery at moderate risk from cardiac standpoint. Thank you for the referral Result Comment: Electronical ly Signed By: Macario HENRY, Fabián\.br\Date and Time Signed: 07/17/24 11:09 EDT OUTPATIENT SURGERY DISCHARGE INSTRUCTION Observed: 07/14/2024 12:57 PM Status: F Source: [facility] Outpatient Surgery Discharge Instruction [place] [id number] Patient Discharge Instructions PERSON INFORMATION Name: REY BERNSTEIN Date of : 1970 Current Date: 07/14/2024 12:57:32 PHYSICIANS Admitting Physician: Newton Minor DO Discharge Diagnosis: REY BERNSTEIN has been given the following list of follow-up instructions, prescriptions, and patient education materials: PATIENT FOLLOW-UP INFORMATION Diet: Regular, Drink liquids and eat a light meal Discharge Activity: Ambulate as tolerated, Arrange for a responsible adult supervision for 24 hours, Expect mild pain, Do not lift more than 5 lbs Discharge Restrictions: No driving for 24 hrs, Do not operate machinery or tools, Do not make important decisions for 24 hours, Do not drink alcoholic beverages for 24 hours Call Your Doctor For: Persistent or heavy bleeding, Temperature above 101.5 degrees, Redness, swelling, or pus at operative site, Severe pain at the operative site, Persistent vomiting Wound Care Instructions: Keep incision dry, Remove dressing as instructed Remove Your Dressing In 2 Days Additional Instructions: Aspirin 325mg EC oral daily with food for 3 weeks for blood clot prevention. IF UNABLE TO CONTACT YOUR PHYSICIAN AND YOU FEEL IT IS AN EMERGENCY, GO TO THE NEAREST EMERGENCY ROOM OR CALL 911 AMANDEEP Salmeron ANTHONY, have received the attached patient education materials/instructions and have verbalized understanding: May we do a follow up call? Yes No I was present when discharge instructions were given Patient Signature Date Clinican/Nurse Signature Date Follow up: With: Address: When: Newton Minor [address] [place] [address] [facility] (1) Comments: Keep scheduled appointment Type Location Start [facility] 07/21/2024 2:45 PM 07/21/2024 3:30 PM Confirmed Pharmacy Information: You may receive a survey from [employer] asking you to rate your care experience. Your feedback is important and will help us understand what we do well and how we can improve the quality of care we provide to you, your loved ones and our community. It???s an honor to serve you. Thank you for choosing [facility] HERE ARE THE MEDICATION CHANGES THAT OCCURRED DURING YOUR HOSPITAL STAY Medications to Continue with No Changes Other Medications losartan (losartan 50 mg Tab) 1 Tablets By Mouth every day. PATIENT EDUCATION INFORMATION Instructions: Medication Leaflets: INPATIENT PATIENT SUMMARY Observed: 07/03 12:57 PM Status: F Source: [facility] Inpatient Patient Summary [address] [address] [facility] Clinical Discharge Instructions PERSON INFORMATION Name: REY BERNSTEIN PHYSICIANS Admitting Physician: Newton Minor DO Attending Physician: Newton Minor DO PCP: Edna HENRY, Etienne Discharge Diagnosis: Comment: PATIENT EDUCATION INFORMATION Instructions: Medication Leaflets: Follow up: With: Address: When: Newton Minor [address] [place] [address] [facility] (1) Comments: Keep scheduled appointment Type Location Start [facility] [address] [facility] 07/21/2024 2:45 PM 07/21/2024 3:30 PM Confirmed MEDICATION LIST Medications to Continue with No Changes Other Medications losartan (losartan 50 mg Tab) 1 Tablets By Mouth every day. Comment: EGFR Collected: 9:38 AM Status: F Source: [facility] TYPE CODE TESTS RESULT OUT OF RANGE REFERENCE UNITS LAB 02246896(LOINC) eGFR 101 Normal >=59 mL/min/1 .7 3 m2 Performed By: #### [id number] #### [facility] Laboratory [address] [place] [address] BMP Collected: 9:38 AM Status: F Source: [facility] TYPE CODE TESTS RESULT OUT OF RANGE REFERENCE UNITS LAB 2345-7(LOINC) GLUCOSE:MCNC :PT:SER/PLAS :QN: 103 Normal 55-199 mg/dL LAB 3094-0(LOINC) UREA NITROGEN:MCN C:PT:SER/ÁLVARO S:QN: 16 Normal 5-21 mg/dL LAB 2160-0(LOINC) CREATININE:M CNC:PT:SER/P LAS:QN: 0.9 Normal 0.5-1.3 mg/dL LAB 3097-3(LOINC) UREA NITROGEN/CRE ATININE:MRTO :PT:SER/PLAS :QN: 18 Normal 10-20 No Units LAB 34535-0([facility]) CALCIUM:MCNC :PT:SER/PLAS :QN: 8.9 Normal 8.9-11.1 mg/dL LAB 2951-2([facility]) SODIUM:SCNC: PT:SER/PLAS: QN: 137 Normal 135-145 mmol/L LAB 2823-3([facility]) POTASSIUM:SC NC:PT:SER/PL :QN: 3.9 Normal 3.5-5.3 mmol/L LAB 2075-0([facility]) CHLORIDE:SCN C:PT:SER/ÁLVARO S:QN: 103 Normal 101-111 mmol/L LAB 2027-9([facility]) CARBON DIOXIDE:SCNC :PT:SER/PLAS :QN: 28 Normal 21-31 mmol/L LAB 32899-0([facility]) ANION GAP:SCNC:PT: SER/PLAS:QN: CALCULATED 10 Normal 6-16 mEq/L Performed By: #### [id number] # ### [facility] [address] [place] [address] CBC W/ AUTO DIFF Collected: 07/14/2024 9:38 AM Statu s: F Source: [facility] TYPE CODE TESTS RESULT OUT OF RANGE REFERENCE UNITS LAB 04028-4([facility]) LEUKOCYTES^^CO RRECTED FOR NUCLEATED ERYTHROCYTES:N CNC:PT:BLD:QN: AUTOMATED COUNT 11.2 High 4.0-11.0 E9/L LAB 789-8([facility]) ERYTHROCYTES:N CNC:PT:BLD:QN: AUTOMATED COUNT 5.1 Normal 4.3-5.9 E12/L LAB 718-7([facility]) HEMOGLOBIN:MCN C:PT:BLD:QN: 15.7 Normal 13.5-17.5 gm/dL LAB 4544-3([facility]) ERYTHROCYTE/BL OOD:VFR:PT:BLD :QN:AUTOMATED COUNT 46.0 Normal 37.7-49.0 % LAB 788-0([facility]) OBSERVATION:DI STWIDTH:PT:RBC :QN:AUTOMATED COUNT 13.5 Normal 10.9-14.2 % LAB 785-6([facility]) HEMOGLOBIN:ENT MASS:PT:RBC:QN :AUTOMATED COUNT 30.9 Normal 27.0-34.0 pg LAB 786-4([facility]) HEMOGLOBIN:ENT MCNC:PT:RBC:QN :AUTOMATED COUNT 34.2 Normal 31.4-36.0 gm/dL LAB 787-2([facility]) OBSERVATION:EN TMEANVOL:PT:RB C:QN:AUTOMATED COUNT 90.4 Normal 80.0-100.0 fL LAB 10704-9([facility]) PLATELET:ENTME ANVOL:PT:BLD:Q N:AUTOMATED COUNT 9.4 Normal 6.4-10.8 fL LAB [id number]([facility]) Platelet 254.0 Normal 150.0-500.0 E9/ L LAB 98045-8([facility]) NEUTROPHILS/LE UKOCYTES:NFR:P T:BLD:QN: 69.0 Normal 36.0-75.0 % LAB 731-0([facility]) LYMPHOCYTES:NC NC:PT:BLD:QN:A UTOMATED COUNT 22.8 Normal 14.0-50.0 % LAB 742-7([facility]) MONOCYTES:NCNC :PT:BLD:QN:AUT OMATED COUNT 0.8 Normal 0.2-1.0 E9/L LAB 713-8([facility]) EOSINOPHILS/LE UKOCYTES:NFR:P T:BLD:QN:AUTOM ATED COUNT 0.7 Normal 0.0-8.0 % LAB 704-7([facility]) BASOPHILS:NCNC :PT:BLD:QN:AUT OMATED COUNT 0.2 Normal 0.0-2.0 % LAB 751-8([facility]) NEUTROPHILS:NC NC:PT:BLD:QN:A UTOMATED COUNT 7.7 High 2.0-7.5 E9/L LAB 34815-1([facility]) LYMPHOCYTES:NC NC:PT:BLD:QN: 2.6 Normal 1.0-4.0 E9/L LAB 05410-0([facility]) EOSINOPHILS:NC NC:PT:BLD:QN: 0.1 Normal 0.0-0.5 E9/L LAB 69482-5([facility]) BASOPHILS/LEUK OCYTES:NFR.DF: PT:BLD:QN:AUTO MATED COUNT 0.0 Normal 0.0-0.2 E9/L Performed By: #### [id number] # ### [facility] [address] [place] [address] ALLERGIES DATE TYPE / CODE NAME / CODE REACTION SEVERITY SOURCE /[id number](SNOMED CT) penicillins [id number] [facility] ENCOUNTERS ADMIT/DISCHARGE ACCOUNT NUMBER ADMITTING ENCOUNTER CLASS LOCATION SOURCE 07/21/2024/07/22/19 [id number] Newton Minor Ambulatory FTBuilding :ASRoom: FX08Dxn: 01 [facility] 07/17/2024/07/18/19 [id number] Fabián Sorto Ambulatory FTBuilding :FT CAR [facility] 07/16/2024/07/17/19 [id number] Fabián Sorto Ambulatory FTBuilding :FT.Cardiolo gy ClinicRoom: CD:[id number] [facility] 07/14/[id number] Newton Minor Ambulatory FTBuilding :FT [facility] 07/14/2024/07/15/19 [id number] Newton Minor Ambulatory FTBuilding :FT [facility] 07/11/2024/07/12/19 [id number] Ambulatory Building:[facility] EPIC PAYERS ENCOUNTER GUARANTOR PAYER SUBSCRIBER SOURCE 07/21/2024 REY SIMMONS: SMITH STTel: [phone] (HP) Primary Insurance:CIGNAP rachelle Number: [id number] tive Date:2024-07-11 Sandrita [place] [address] [address]OG: REY AMANDEEPSTIVEN [facility] 07/17/2024 REY SIMMONS: SMITH STTel: (HP) Primary Insurance:CIGNAP olicy Number: [id number] tive Date:2024-07-16[address] [address]XT: REY MORAN [facility] 07/16/2024 REY BERNSTEINDOB: [facility] ([facility] Primary Insurance:MICHAELNAP ivisy Number: [id number] tive Date:2024-07-14 [address] [address]CL: REY MORAN [facility] 07/14/2024 REY BERNSTEINDOB: [facility] (HP) Primary Insurance:SKYLA bush Number: [id number] tive Date:2024-07-14 [address] [address]QR: [facility]IN[facility] 07/11/2024 REY Luiz NADIAB: [place], [place] [address]Uhq: () Primary Insurance:MICHAELNAP rachelle Number: [id number] tive Date:2012-12-03[address] [address]JO: REY Luiz NADIAB: [id number] [place] [address] [facility] EPIC
--- OUTSIDE RECORDS SUMMARY | 2024-07-21 15:50 | XMS_ITS | Continuity of Care Document ---
Author Organization [facility] Address Unknown Care Team Providers Care Asphalt Roller Person Name Role Phone Etienne Bishop Primary Care Physician Kim Daly Unavailable Unavailable Encounter FT_[facility] [id number] Date(s): 07/21/24 - 07/21/[address] [address]- Discharge Disposition: Home (Routine DC) Attending Physician: Zhao Quintero DO Admitting Physician: Zhao Quintero DO Referring Physician: Zhao Quintero DO Encounter Type: Ambulatory/Same Day Surgery Allergies, Adverse Reactions, Alerts Substance Criticality Severity Reaction Reaction Severity Status penicillins Rash Hives Active Assessment and Plan Future Appointments Appointment Date:01/16/2025 01:00:00 PM Scheduled Provider:Fabián Sorto MD Location:FT.Cardiology Clinic Appointment Type:Cardiology Follow Up (FT) Medications aspirin 325 mg Tab 325 mg = 1 tab(s), Oral, Daily, Start the day after surgery for blood clot prevention., X 30 day(s), # 21 tab(s), Refills(s) 0, Pharmacy: [facility]/pharmacy #[id number], 170, cm, 07/14/24 11:50:00 EDT, Height/Length Dosing, 153, kg, 07/14/24 11:50:00 EDT, Weight Dosing Start Date: 07/14/24 Stop Date: 08/13/24 Status: Ordered Quantity: 21.0 Unit: tab(s) Repeat number: 1 losartan 50 mg Tab 50 mg = 1 tab(s), Oral, Daily, Refills(s) 0 Start Date: 07/14/24 Status: Ordered Repeat number: 1 Harwood 325 mg-5 mg oral tablet See Instructions, [...] Procedure Date Related Diagnosis Body Site Status Arthroscopy of knee 07/21/24 Compl eted Dental surgical procedure Completed Vital Signs Most recent to oldest [Reference Range]: 1 2 3 Temperature Axillary [35.2-36.7 DegC] 36.8 DegC *HI* (07/21/24 10:18 AM) Temperature Temporal Artery [36.3-37.8 DegC] 36.8 DegC (07/21/24 2:35 PM) 36.6 DegC (07/21/24 2:10 PM) Apical Heart Rate [60-100 bpm] 64 bpm (07/21/24 10:20 AM) Heart Rate Monitored [60-100 bpm] 69 bpm (07/21/24 3:49 PM) 66 bpm (07/21/24 2:42 PM) 70 bpm (07/21/24 2:35 PM) Respiratory Rate [14-20 br/min] 17 br/min (07/21/24 3:48 PM) 15 br/min (07/21/24 2:42 PM) 16 br/min (07/21/24 10:19 AM) Respiratory Rate Monitored 10 br/min (07/21/24 2:35 PM) 10 br/min (07/21/24 2:30 PM) 9 br/min (07/21/24 2:25 PM) Blood Pressure [89-139/59-89 mmHg] 169/78mmHg *HI* (07/21/24 3:49 PM) 154/85mmHg *HI* (07/21/24 2:42 PM) 150/78mmHg *HI* (07/21/24 2:35 PM) Blood Pressure Location Right arm (07/21/24 2:35 PM) Right arm (07/21/24 2:30 PM) Right arm (07/21/24 2:25 PM) Mean Arterial Pressure, Cuff 102 mmHg (07/21/24 2:35 PM) 99 mmHg (07/21/24 2:30 PM) 124 mmHg (07/21/24 2:25 PM) Mean Arterial Pressure, Monitered 108 mmHg (07/21/24 3:49 PM) 108 mmHg (07/21/24 2:42 PM) 109 mmHg (07/21/24 10:20 AM) SpO2 [89 %] 100 % (07/21/24 3:49 PM) 98 % (07/21/24 2:42 PM) 97 % (07/21/24 2:35 PM) Social History Social History Type Response Smoking Status Never (less than 100 in lifetime);Never entered on: 07/16/24 Sex Male Sex Representation Male (finding) Hospital Discharge Instructions Patient Education 07/21/2024 15:00:01 Quintero - Knee Arthroscopy(CUSTOM) [place], [place] [facility] DISCHARGE INSTRUCTIONS: KNEE ARTHROSCOPY Diet Begin with a liquid diet and advance to your normal diet as tolerated. Activity You may gradually increase your activity as tolerated. Until your first post- operative visit elevate your knee higher than your [...] side. This is important for protection of yourknee after surgery. Although you will find that you can walk without crutches or walker, it is not healthy for you until you regain adequate muscle strength. Use your crutches or walker until your limp is gone. You are encouraged to bend your knee as this is comfortably tolerated. Do not forcefully bend untilyou have permission by your surgeon. Driving is [...] directed but do not return to activity. Ifsevere pain persists despite rest, elevation and medication, [...] There may be some numbness around the portalsthat can take several days or several weeks [...] 10 and 14 days after surgery and youwill be given an appointment card. Do not hesitate to call the office or the hospital if any problems or questions arise before your appointment. Zhao Quintero, DO [facility] [address] [place], [place] [address] Reviewed: 03-2907/21/2024 14:55:37 Post Op Patient Instructions - FT (CUSTOM) 07/21/2024 14:55:34 Knee Cryocuff Patient Instructions - FT (CUSTOM) Follow Up Care 07/11/2024 09:45:19 With:CLARK Whitman Address: [address] [place], [place] [address]- Business (1) When:08/01/2024 08:00:00 Comments:Keep scheduled appointmentCall for any problems. History and physical note * Qing Webster: PERFORM Event Display: History and Physical Authored Date: [id number] Patient Care team information Care Team Personnel Name: Etienne Bishop MD Position: FT Physician Member Role: Primary Care Physician Address: [address] [place] [address] Telecom: Name: Kim Daly Position: [employer] Staff Search Member Role: Other Care Team Related Persons Name: BOB BERNSTEIN Name: BOB BERNSTEIN Name: BOB BERNSTEIN Insurance Providers Guarantor name: REY BERNSTEIN Health Plan Information #: 1 Payer: [facility] Member Number: [id number] Policy Number: NA Group Number: [id number] Health Plan Information #: 2 Payer: [employer] Member Number: [id number] Policy Number: NA Group Number: [id number]
--- OUTSIDE RECORDS SUMMARY | 2024-07-28 17:14 | XMS_ITS | Encounter Summary ---
Author Organization [facility] Address [address] [place] [address] Care Team Providers Care Race Relations Adviser Name Role Phone Etienne Bishop MD Primary Care Provider [phone] Reason for Visit * Reason Onset Date Comments cardiac clearance 07/15/2024 Encounter Details Date Type Department Care Team (Late st Contact Info) Description 07/15/2024 Telephone [facility] [address] [place] [phone] Gilma Bassett RN [address] [place], [place] cardiac clearance Social History Tobacco Use Types Packs/Day Years Used Date Smoking Tobacco: Never Smokeless Tobacco: Never Sex and Gender Information Value Date Recorded Sex Assigned at Not on file Legal Sex Male 2:03 PM EDT Gender Identity Not on file Sexual Orientation Not on file documented as of this encounter Miscellaneous Notes * Telephone Encounter - Gilma Bassett RN - 07/15/2024 11:32 AM EDT Spoke with Cardiac clearance 07/16/24 3 pm confirmed with her. * Telephone Encounter - Brittni De Los Santos MA - 07/15/2024 10:53 AM EDT Called patient but had to lvm to call back. I have him scheduled at [facility] Cardio on 07/16 @ 3:00p forclearance. documented in this encounter Plan of Treatment Upcoming Encounters Date Type Department Care Team (Late st Contact Info) Description 08/01/2024 8:00 AM EDT Office Visit [facility] [address] [place] [phone] Chriss Lemon PA [address] [place] [address] documented as of this encounter Visit Diagnoses Not on filedocumented in this encounter Care Teams Race Relations Adviser Relationship Specialty Start Date End Date Etienne Bishop MD [address] [facility] [place] [address] PCP - General Family Medicine 07/11/24 documented as of this encounter
--- OUTSIDE RECORDS SUMMARY | 2024-07-28 17:14 | XMS_ITS | Patient Health Record ---
Author Organization [facility] in [place] Address [address] [place] [address] Care Team Providers Care Correspondence Dictator Name Role Phone Edna Joe Primary Care Provider [phone] Veena Chairez [phone] Allergies Allergen (clinical drug ingredient) Drug/Non Drug Allergy documented on EMR Reaction Allergy Type Onset Date Status amoxicillin Amoxicillin hives Drug Allergy Act shon Results Component Value Reference Range Notes MR knee RT wo con Reviewed date:05/14/2024 12:42:42 PM Interpretation: Performing Lab: Notes/Report: Source Facility: [place] [address] Magnetic Resonance Report Signed Patient: REY FERRERA MR#: [id number] : 1970 Acct:[id number] Age/Sex: 54 / M ADM Date: 05/13/24 Loc: MRI Attending Dr: Wallace Duque M.D. Ordering Physician: Wallace Duque M.D. Date of Service: 05/13/24 Procedure(s): MR knee RT wo con Accession Number(s): [id number] cc: Wallace Duque M.D. [place] [address] Patient Name: REY FERRERA MRN: [id number] date: 1970 Sex: M Assigned Patient Location: MRI Current Patient Location: MRI Accession/Order Number: [id number] Exam Date: 05/13/2024 18:42 Report Date: 05/13/2024 18:55 At the request of: WALLACE DUQUE MD Procedure: MR knee RT wo con MRI of the RIGHT Knee without contrast TECHNIQUE: Multiplanar T1 and T2-weighted imaging of the knee obtained without contrast HISTORY: Anterior medial right knee pain for 2 months. COMPARISON:Plain film imaging 03/07/2024 BONE MARROW: No infiltrative changes. BONE MARROW EDEMA: None FRACTURE: None BONE TUMOR: None BONY ALIGNMENT: Adequate DEGENERATION: Patellofemoral JOINT EFFUSION: Small moderate MUSCLES: Unremarkable SOFT TISSUES: Unremarkable POPLITEAL CYST: None ANTERIOR CRUCIATE LIGAMENT: Intact POSTERIOR CRUCIATE LIGAMENT: Intact LATERAL COMPARTMENT: LATERAL MENISCUS: Increased T2 signal change within the substance of the body of the lateral meniscus suggesting mucoid degeneration. Moderate lateral extrusion of the body. No articular surface tear visualized.. LATERAL ARTICULAR CARTILAGE: Intact. No osteochondral defect. No subcuticular bone marrow edema. PROXIMAL TIBIOFIBULAR JOINT: Intact POSTERIOR LATERAL COMPARTMENT: Intact lateral collateral ligament complex. Intact biceps femoris tendon. Intact popliteus tendon. COMMON PERONEAL NERVE: Intact MEDIAL COMPARTMENT: MEDIAL MENISCUS: Focus of increased T2 signal intensity in the body of the medial meniscus concerning for radial tear. MEDIAL ARTICULAR SURFACE: No chondromalacia. No subarticular bone marrow edema. Small ganglion cyst posterior to the medial joint space. POSTERIOR MEDIAL COMPARTMENT: Medial collateral ligament complex intact. The semimembranosus tendon intact. No ramp lesion of the posterior horn of medial meniscus present. PATELLOFEMORAL COMPARTMENT: PATELLOFEMORAL ARTICULAR CARTILAGE: Marked thinning of the patellofemoral cartilage. Subchondral bone marrow edema of the patella. Findings consistent with degenerative chondromalacia. Mild patellar subluxation. Anterior and medial lateral subcutaneous edema. ANTERIOR LIGAMENTS: Patellar ligament and quadriceps tendon are intact. MR/MR knee RT wo con IMPRESSION: Concern for radial tear of the body of the medial meniscus. Mucoid degeneration of the lateral meniscus. Intact ACL. Small joint effusion. Degenerative chondromalacia patella with mild subluxation. Anterior subcutaneous edematous changes, nonspecific. Impression dictated by: Jose Benito M.D.05/13/2024 6:55 PM Dictation Location: [place] [address] Electronically authenticated by: [id number] Y Date: 05/13/2024 18:55 Dictated By: Jose Benito D.O. Signed By: 05/13/241856 DD/ 54 TD/TT: Skate Hop: [place] [address] Magnetic Resonance Report Signed Patient: LUKAS FERRERA MR#: [id number] : 1970 Acct:[id number] Age/Sex: 54 / M ADM Date: 05/13/24 Loc: MRI Attending Dr: Wallace Duque M.D. Ordering Physician: Wallace Duque M.D. Date of Service: 05/13/24 Procedure(s): MR knee RT wo con Accession Number(s): [id number] cc: Wallace Duque M.D. [place] [address] Patient Name: REY FERRERA MRN: [id number] date: 1970 Sex: M Assigned Patient Location: MRI Current Patient Location: MRI Accession/Order Numb er: [id number] Exam Date: 05/13/2024 18:42 Report Date: 05/13/2024 18:55 At the request of: WALLACE DUQUE MD Procedure: MR knee RT wo con MRI of the RIGHT Kne e without contrast TECHNIQUE: Multiplan ar T1 and T2-weighted imaging of the knee obtained without contrast HISTORY: Anterior me dial right knee pain for 2 months. COMPARISON:Plain ousmane m imaging 03/07/2024 BONE MARROW: No infi ltrative changes. BONE MARROW EDEMA: None FRACTURE: None BONE TUMOR: None BONY ALIGNMENT: Adequate DEGENERATION: Patellofemoral JOINT EFFUSION: Small moderate MUSCLES: Unremarkable SOFT TISSUES: Unremarkable POPLITEAL CYST: None ANTERIOR CRUCIATE LI GAMENT: Intact POSTERIOR CRUCIATE L IGAMENT: Intact LATERAL COMPARTMENT: LATERAL MENISCUS: In creased T2 signal change within the substance of the body of the lateral menis cus suggesting mucoid degeneration. Moderate lateral extrusion of the bod y. No articular surface tear visualized.. LATERAL ARTICULAR CA RTILAGE: Intact. No osteochondral defect. No subcuticular bone marrow edema. PROXIMAL TIBIOFIBULA R JOINT: Intact POSTERIOR LATERAL CO MPARTMENT: Intact lateral collateral ligament complex. Intact biceps femori s tendon. Intact popliteus tendon. COMMON PERONEAL NERVE: Intact MEDIAL COMPARTMENT: MEDIAL MENISCUS: Foc us of increased T2 signal intensity in the body of the medial meniscus conc erning for radial tear. MEDIAL ARTICULAR GABRIELA FACE: No chondromalacia. No subarticular bone marrow edema. Small ganglio n cyst posterior to the medial joint space. POSTERIOR MEDIAL COM PARTMENT: Medial collateral ligament complex intact. The semimembranosus tend on intact. No ramp lesion of the posterior horn of medial meniscus present. PATELLOFEMORAL COMPARTMENT: PATELLOFEMORAL ARTIC ULAR CARTILAGE: Marked thinning of the patellofemoral cartilage. Subchondr al bone marrow edema of the patella. Findings consistent with degenerative chondromalacia. Mild patellar subluxation. Anterior and medial lateral subcu taneous edema. ANTERIOR LIGAMENTS: Patellar ligament and quadriceps tendon are intact. M R/MR knee RT wo con IMPRESSION: Concern for radial tear of the body of the medial meniscus. Mucoid degeneration of the lateral meniscus. Intact ACL. Small joint effusion. Degenerati ve chondromalacia patella with mild subluxation. Anterior subcutaneou s edematous changes, nonspecific. Impression dictated by: Jose Benito M.D.05/13/2024 6:55 PM Dictation Location: [place] [address] Electronically authe nticated by: [id number] Y Date: 05/13/2024 18:55 Dictated By: Jose Benito D.O. Signed By: 05/13/241856 DD/ 54 TD/TT: [place]ate [place]: XR KNEE RT 3V Reviewed date:03/10/2024 01:31:28 PM Interpretation: Performing Lab: Notes/Report: Source Facility: [facility] [place] [address] [place] [address] XRay Report Signed Patient: REY FERRERA MR#: [id number] : 1970 Acct:[id number] Age/Sex: 53 / M ADM Date: 03/07/24 Loc: RAD Attending Dr: Wallace Duque M.D. Ordering Physician: Wallace Duque M.D. Date of Service: 03/07/24 Procedure(s): XR knee RT 3V Accession Number(s): [id number] cc: Wallace Duque M.D. [place] [id number] Patient Name: REY FERRERA MRN: [id number] date: 1970 Sex: M Assigned Patient Location: RAD Current Patient Location: Accession/Order Number: [id number] Exam Date: 03/07/2024 08:45 Report Date: 03/10/2024 07:17 At the request of: WALLACE DUQUE Procedure: XR knee RT 3V PROCEDURE: XR knee RT 3V COMPARISON: None. HISTORY: Knee Osteoarthritis FINDINGS: BONES:No acute fracture or dislocation. Minimal degenerative changes with marginal osteophyte formation. Cortical exostosis along the medial femoral condyle osteochondroma is favored SOFT TISSUES:Negative. No visible soft tissue swelling. EFFUSION:None visible. OTHER: Negative. XR/XR knee RT 3V IMPRESSION: Minimal degenerative changes. Electronically authenticated by: LYNDON PARKS Date: 03/10/2024 07:17 Dictated By: Lyndon Parks M.D. Signed By: 03/10/24719 DD/ 6 TD/TT: Skate Hop: [place] [address] XRay Report Signed Patient: LUKAS FERRERA MR#: [id number] : 1970 Acct:[id number] Age/Sex: 53 / M ADM Date: 03/07/24 Loc: RAD Attending Dr: Wallace Duque M.D. Ordering Physician: Wallace Duque M.D. Date of Service: 03/07/24 Procedure(s): XR knee RT 3V Accession Number(s): [id number] cc: Wallace Duque M.D. [address] [address] Patient Name: REY FERRERA MRN: [id number] date: 1970 Sex: M Assigned Patient Location: RAD Current Patient Location: Accession/Order Numb er: [id number] Exam Date: 03/07/2024 08:45 Report Date: 03/10/2024 07:17 At the request of: WALLACE DUQUE Procedure: XR knee RT 3V PROCEDURE: XR knee RT 3V COMPARISON: None. HISTORY: Knee Osteoarthritis FINDINGS: BONES:No acute fract ure or dislocation. Minimal degenerative changes with marginal osteophyte formation. Cortical exostosis along the medial femoral condyle osteochondro ma is favored SOFT TISSUES:Negativ e. No visible soft tissue swelling. EFFUSION:None visible. OTHER: Negative. X R/XR knee RT 3V IMPRESSION: Minimal degenerative changes. Electronically authe nticated by: LYNDON PARKS Date: 03/10/2024 07:17 Dictated By: Lyndon Parks M.D. Signed By: 03/10/24719 DD/ 6 TD/TT: Skate Hop: Reason For Referral Diagnosis 1 Knee osteoarthritis (M17.10) Referral Organization [facility] Referring Provider First Name Joe Referring Provider Last Name Edna Referring Provider Speciality Family Med daljit Referred Provider Harris Ramirez Referred Provider Specialty Orthopedic S urgery Referral Priority Routine Medications Medication SIG (Take, Route, Frequency, Duration) Notes Start Date End Date Status Losartan Potassium 100 MG 1 tablet Orall y Once a day for 30 days 06/26/2024 Active Social History Tobacco Use: Social History Observation Description Date Details (start date - stop date) Never Smoker NA - NA Tobacco Use/Smoking Question Answer Notes Patient is a nonsmoker Alcohol Screen (Audit-C) Question Answer Notes Did you have a drink contain ing alcohol in the past year? Yes How often did you have 6 or more drinks on one occasion in the past year? Monthly or less (1 point) How many drinks did you have on a typical day when you were drinking in the past year? 1 or 2 drinks (0 point) How often did you have a dri nk containing alcohol in the past year? Weekly (3 points) Points 4 Interpretation Positive AUDIT-C (Standard) Question Answer Notes Did you have a drink containing alcohol in the p ast year? No Points 0 Interpretation Negative Problems Problem Type SNOMED Code ICD Code Onset Dates Problem Status W/U Status Risk Notes Problem Low back pain (368702177) Low back pain (M54.5) Active confirmed Problem Tinea pedis (8788666) Tinea pedis (B35.3) Active confirmed Problem Gout (73127561) Gout, unspecifie d (M10.9) Active confirmed Problem Hypertension (58741039) HTN (hypertension) (I10) Active confirmed Problem Insomnia (536456560) Insomnia (G47.00) Active confirmed Problem Eczema (98027662) Eczema (L30.9) Active confirm ed Problem Acute sinusitis (93746218) Acute sinus infection (J01.90) Active confirmed Problem Arthritis of right knee (3030681001309042 ) Arthritis of knee, right (M17.11) Active confirmed Problem Osteoarthritis of knee (565687652) Knee osteoarthritis (M17.10) Active confirmed Vital Signs Temperature 98.1 degrees Fahrenheit 06/09/2024 Blood pressure diastolic 80 mm Hg 07/16/2024 Height 66 in 07/16/2024 Blood pressure systolic 136 mm Hg 07/16/2024 Weight 339.6 lbs 07/16/2024 BMI 54.81 kg/m2 07/16/2024 Encounters Encounter Location Date Provider Diagnosis [facility] [address] [place] [address] 10/22/2023 Joe Duque Acute sinus infectio n J01.90 [facility] [address] [place] [address] 01/07/2024 Joe [facility] [address] [place] [address] 03/10/2024 Joe [facility] [address] [place] [address] 03/10/2024 Joe raimundo [facility] [address] [place] [address] 03/20/2024 Joe [facility] [address] [place] [address] 04/02/2024 Joe Duque Knee osteoarthritis M17.10 [facility] [address] [place] [address] 07/11/2024 Joe Duque HTN (hypertension) I 10 [facility] [address] [facility] [place] [address] 05/05/2024 Joe Hoy Arthritis of knee, right M17.11 [facility] [address] [place] [address] 05/14/2024 Joe Hoy [facility] [address] [place] [place] [address] 06/09/2024 Joe Hoy [facility] [address] [place] [place] [address] 06/19/2024 Joe Hoy Acute bronchitis, unspecified organism J20.9 [facility] [address] [place] [place] [address] 07/03/2024 Joe Hoy [facility] [address] [place] [place] [address] 07/10/2024 Joe Hoy [facility] [address] [place] [place] [address] 03/20/2024 Joe Hoy Knee osteoarthritis M17.10 [facility] [address] [place] [place] [address] 07/11/2024 Joe Hoy HTN (hypertension) I 10 [facility] [address] [place] [place] [address] 02/29/2024 Joe Hoy Knee osteoarthritis M17.10 [facility] [address] [place] [place] [address] 03/12/2024 Joe Hoy Knee osteoarthritis M17.10 and Primary localized osteoarthritis of right knee M17.11 [facility] [address] [place] [place] [address] 06/09/2024 Joe Hoy Acute bronchitis, unspecified organism J20.9 [facility] [address] [place] [place] [address] 06/26/2024 Veena Mihaela HTN (hypertension) I 10 and Gout, unspecified M10.9 [facility] [address] [place] [place] [address] 07/16/2024 Joe Hoy Knee osteoarthritis M17.10 Assessments Encounter Date Diagnosis (ICD Code) Assessment Notes Treatment Notes Treatment Clinical Notes Section Notes 02/29/2024 Knee osteoarthritis (ICD-10 - M17.10) 03/12/2024 Knee osteoarthritis (ICD-10 - M17.10) 03/12/2024 Primary localized osteoarthritis of right knee (ICD-10 - M17.11) 03/20/2024 Knee osteoarthritis (ICD-10 - M17.10) 06/09/2024 Acute bronchitis, unspecified organism (ICD-10 - J20.9) Rest and drink more liquids, especially water. You may use a humidifier or vaporizer to help keep the drainage moist. Peyw-rmw-uwttqun Nasal Saline may help the stuffy and runny nose. Use Ibuprofen and or Tylenol as needed for fever, chills, body aches or pain. Children 5 years old should not be given uylh-ecc-jbphruu cough and cold medications such as guaifenesin and dextromethorphan. If you're over age 5, you may try qcpg-fhe-rkfstfj cold medications such as guaifenesin and dextromethorphan, or multi-symptom cold reliever such as Dayquil to help reduce the symptoms. Antibiotics have been prescribed. You should take these until completed and follow the directions. Antibiotics can sometimes cause upset stomach, and in rare cases, serious allergic reactions or serious gastrointestinal problems. If you start having severe abdominal pain, severe vomiting, or bloody diarrhea, you should be reevaluated by your physician or urgent care immediately. Follow up with your Primary Care Provider or return to clinic if symptoms do not improve within 3-5 days. If you develop severe symptoms such as shortness of breath, repeated vomiting, coughing up blood, or chest pain you should go to the emergency room or call 911 06/26/2024 HTN (hypertension) (ICD-10 - I10) BPs reviewed last few visits always high start losartan, fu 2 weeks for BP check 06/26/2024 Gout, unspecified (ICD-10 - M10.9) TOradol 60 Kenalog 80 07/16/2024 Knee osteoarthritis (ICD-10 - M17.10) Medcailly stable no hx pittman , cad, or pul issue s excpet untreaed sleep apnea COnsideration for Spinal for surgeyr 07/11/2024 HTN (hypertension) (ICD-10 - I10) 10/22/2023 Acute sinus infection (ICD-10 - J01.90) 04/02/2024 Knee osteoarthritis (ICD-10 - M17.10) 05/05/2024 Arthritis of knee, right (ICD-10 - M17.11) 06/19/2024 Acute bronchitis, unspecified organism (ICD-10 - J20.9) 07/11/2024 HTN (hypertension) (ICD-10 - I10) Plan Of Treatment Pending Test Test Name Order Date MRI KNEE RIGHT WO CONTRAST 05/05/2024 Insurance Providers Payer Name Payer Address Payer Phone Subscriber Number Group Number Insured Name Patient Relationship to Insured Coverage Start Date Coverage End Date [facility] [address] [place], [place] [phone] [id number] Rey Ferrera Self - patient is the insured Medications Administered Medication Instructions Date of Administration Dosage Notes Ketorolac Tromethamine 03/20/2024 60 mg Ketorolac Tromethamine 06/26/2024 60 mg Triamcinolone 40 mg/ml 03/12/2024 80 mg wi th 1 cc lidocaine Triamcinolone 40 mg/ml 06/26/2024 80 mg Medical (General) History Medical History History ICD Code Gout, unspecified M10.9 Insomnia G47.00 Low back pain M54.5 Eczema L30.9 Surgical History Surgery Date(Month/Year) Tonsils
--- OUTSIDE RECORDS SUMMARY | 2024-07-28 17:15 | XMS_ITS | Clinical Summary ---
Author Organization [facility] Address [address] [place] [address] Care Team Providers Care Mixing Machine Tender Name Role Phone Etienne Bishop MD Primary Care Provider [phone] Allergies Active Allergy Reactions Criticality Noted Date Comments Penicillins Rash Low 07/11/2024 Medications losartan (Cozaar) 50 MG tablet TAKE 1 TABLET BY MOUTH EVERY DAY FOR 30 DAYS 06/26/2024 Active meloxicam (Mobic) 15 MG tablet Take 15 mg by mouth Daily 05/20/2024 Active benzonatate (Tessalon) 200 MG capsule Take 200 mg by mouth in the morning and 200 mg in the evening and 200 mg before bedtime. 06/19/2024 Active Active Problems No known active problems Encounters Date Type Department Care Team Description 07/15/2024 Telephone [facility] [address] [address] Gilma Bassett RN cardiac clearance 07/11/2024 8:45 AM EDT Office Visit [facility] [address] [place] [address] Zhao Quintero DO Pre-op testing (Primary Dx); Acute pain of right knee 07/11/2024 Bamboo flowsheet [facility] [address] [place] [address] Zhao Quintero DO 07/11/2024 Travel from Last 3 Months Social History Tobacco Use Types Packs/Day Years Used Date Smoking Tobacco: Never Smokeless Tobacco: Never Tobacco Cessation:Counseling Given: Not Answered Sex and Gender Information Value Date Recorded Sex Assigned at Not on file Legal Sex Male 2:03 PM EDT Gender Identity Not on file Sexual Orientation Not on file Last Filed Vital Signs Vital Sign Reading Time Taken Comments Blood Pressure - - Pulse - - Temperature - - Respiratory Rate - - Oxygen Saturation - - Inhaled Oxygen Concentration - - Weight 154 kg (340 lb) 07/11/2024 8:51 AM EDT Height 170.2 cm (5' 7 ) 07/11/2024 8:51 AM EDT Body Mass Index 53.25 07/11/2024 8:51 AM EDT Plan of Treatment Upcoming Encounters Date Type Department Care Team (Late st Contact Info) Description 08/01/2024 8:00 AM EDT Office Visit [facility] [address] [address] Chriss Lemon PA [address] [place] [address] Health Maintenance Due Date Last Done Comments CT Colonography 1969 Colonoscopy 1970 Colorectal Cancer Screening 1970 FIT-DNA 1970 FIT 1970 FOBT 1970 Sigmoidoscopy 1970 Influenza Vaccine (Season Ended) 2024 Insurance [employer] Care Teams Mixing Machine Tender Relationship Specialty Start Date End Date Etienne Bishop MD [address] [place] [address] PCP - General Family Medicine 07/11/24
--- OUTSIDE RECORDS SUMMARY | 2024-07-28 17:15 | XMS_ITS | Patient Health Record ---
Author Organization [facility] Address [address] [place] [address] Care Team Providers Care Jumpbasting Facing Baster Name Role Phone Etienne Bishop Primary Care Provider Harris Figueroa Unavailable [phone] Maria Isabel Baxter Unavailable [phone] Reason For Referral Reason NO........Obtain aut horization for right knee visco injection SYNVISC SERIES Diagnosis 1 Primary osteoarthrit is of right knee (M17.11) Referral Organization [facility] Referring Provider First Name Maria Isabel Referring Provider Last Name Sahil Referring Provider Speciality Physician End User Consultant Referred Organization [facility] Referred Address [address] [facility],[address],[place], [place],[address], Procedure 1 SYNVISC INJ 1 MG ([id number]) General Notes Candy Sepulveda 025 01:53:03 PM >NO DICTATIONDerick Amy 05/22/2024 08:00:41 AM >NO DICTATIONDerick Amy 05/23/2024 08:10:59 AM >NO DICTATIONLori Monica 05/26/2024 09:34:17 AM >DICTATION DONEDerick Amy 05/29/2024 09:20:12 AM >PER JUSTINA AT [employer], COVERED BENEFIT. CALL REF [id number] CALL PHARMACY FOR AUTH AT [phone] Amy 05/29/2024 09:30:15 AM >PER MARK, PREFERREDS ARE DUROLANE, EUFLEXXA AND GELSYN 3. [facility] NO LONGER CARRIES THESE MA NOTIFIED, Mirela Sandoval 05/29/2024 12:24:53 PM > SPOKE TO PATIENTS , NOTIFIED. SHE WILL SEE IF THEY CAN GET THROUGH THEIR PCP. Referral Priority Routine Social History Tobacco Use: Social History Observation Description Date Details (start date - stop date) Never Smoker NA - NA AUDIT-C (Standard) Question Answer Notes Did you have a drink containing alcohol in the p ast year? No Points 0 Interpretation Negative Tobacco Control (Standard) Question Answer Notes Tobacco use: Nonsmoker Problems Problem Type SNOMED Code ICD Code Onset Dates Problem Status W/U Status Risk Notes Problem Osteoarthritis of knee (659143354) Primary osteoarthritis of right knee (M17.11) Active confirmed Vital Signs Height 5'7 in 05/26/2024 Weight 340 lbs 05/26/2024 BMI 53.25 05/26/2024 Encounters Encounter Location Date Provider Diagnosis [facility] [address] [facility] [place] [address] [place] [address] 04/14/2024 [facility] Primary osteoarthritis of right knee M17.11 [facility] [address] [facility] [place] [address] [place] [address] 05/19/2024 [facility] Primary osteoarthritis of right knee M17.11 [facility] [address] [facility] [place] [address] [place] [address] 05/26/2024 Harris Ramirez Primary osteoarthrit is of right knee M17.11 [facility] [address] [place] [address] 05/07/2024 Maria Isabel [place] [address] [place] [address] 05/14/2024 Harris [place] [address] [place] [address] 05/20/2024 Harris Ramirez Assessments Encounter Date Diagnosis (ICD Code) Assessment Notes Treatment Notes Treatment Clinical Notes Section Notes 04/14/2024 Primary osteoarthritis of right knee (ICD-10 - M17.11) Right knee osteoarthritis 05/19/2024 Primary osteoarthritis of right knee (ICD-10 - M17.11) 05/26/2024 Primary osteoarthritis of right knee (ICD-10 - M17.11) 04/14/2024 Other For the patient 's right knee pain we discussed risks and benefits of a corticosteroid injection which he would like to proceed with. I did provide this injection for him today. We will see him back in 6 weeks, if he is still having knee pain we can get weightbearing x-rays of the knee. Right knee osteoarthritis 05/19/2024 Other Today I reviewe d MRI results with the patient and it does look like he has a medial meniscus tear but also has degenerative changes, more so at the patellofemoral joint. We discussed that both of these could be pain generators. We will try to treat this conservatively and we did discuss viscosupplementation. Patient would like to try this as corticosteroid injection provided no relief. I have submitted for approval for this and we will see him back in the office after approval. 05/26/2024 Other Given failure to improve with 2 steroid injections and incomplete relief with prescription anti-inflammatories he is interested in proceeding with viscosupplementation injections. He will follow-up pending approval for this injection. Import medication Plan Of Treatment No Information Insurance Providers Payer Name Payer Address Payer Phone Subscriber Number Group Number Insured Name Patient Relationship to Insured Coverage Start Date Coverage End Date [employer] [address] [place] [phone] [id number] REY BERNSTEIN Self - patient is the insured Medications Administered Medication Instructions Date of Administration Dosage Notes BUPIVACAINE 04/14/2024 2 mL Depo-Medrol 04/14/2024 1 mL lidocaine 04/14/2024 2 mL
[2024-07-28 17:23] VITALS: BP 195/76; PULSE 70; TEMP 36.8; O2SAT 97; BMI 52.5
--- NOTE | 2024-07-28 17:43 | CT_ITS ---
The [address] [address] Patient Name: REY BERNSTEIN MRN: [id number] date: 1970 Sex: M Assigned Patient Location: ED.MAIN Current Patient Location: ED.MAIN Accession/Order Number: [id number] Exam Date: 07/28/2024 18:58 Report Date: 07/28/2024 19:04 At the request of: JORGE ANDRES MD Procedure: CT abdomen pelvis w con CT abdomen pelvis w con 07/28/2024 6:49 PM SIGNS AND SYMPTOMS: Diarrhea, rectal pain, hematochezia TECHNIQUE: Multidetector ct axial images of the abdomen and pelvis were obtained with IV contrast. Multiplanar reformats were performed and reviewed to further define anatomy and possible pathology. CT was performed with one or more of the following dose reduction techniques: Automated exposure control, adjustment of the mA and/or kV according to patient size, or use of iterative reconstruction technique. COMPARISON: None. FINDINGS: Lower Chest: Atherosclerotic changes are noted in the coronary arteries. ABDOMEN: Liver: Within normal limits. Bile Ducts: Normal caliber. Gallbladder: No calcified gallstones. Normal caliber wall. Pancreas: Within normal limits. Spleen: Within normal limits. Adrenals: Within normal limits. Kidneys: Within normal limits. Pelvis: Reproductive Organs: No pelvic masses. Ureters: Within normal limits. Bladder: There is fat stranding adjacent to the bladder wall suggesting cystitis. Bowel: No bowel obstruction. There is a normal appendix in the right lower quadrant. Mesenteric Lymph Nodes: No enlarged mesenteric lymph nodes. Peritoneum: No ascites or free air, no fluid collection. Vessels: Atherosclerotic changes are noted in the abdominal aorta and its branches. Retroperitoneum: Within normal limits. Abdominal Wall: Within normal limits. Bones: Degenerative changes are noted in the thoracolumbar spine. Degenerative changes are noted in the hips and sacroiliac joints. CT/CT abdomen pelvis w con IMPRESSION: There is fat stranding adjacent to the bladder wall suggesting cystitis. No bowel obstruction or obstructive uropathy. Impression dictated by: Lele Hoang M.D. 07/28/2024 7:04 PM Dictation Location: [place] [address] Electronically authenticated by: [id number] Y Date: 07/28/2024 19:04
--- NOTE | 2024-07-28 17:43 | ED.GENADUL1 ---
HPI HPI - General Adult General Chief complaint: GI Bleed Stated complaint: BLOOD IN STOOL Time Seen by Provider: 07/28/24 17:39 Source: patient and family Mode of arrival: walk-in Limitations: no limitations History of Present Illness HPI narrative: For 4 male presents for blood in the stool. It started this morning. For the past 3 days he has been having diarrhea. He is on aspirin but no other blood thinners. He has never had blood in his stool before and he has no abdominal pain. Related Data Allergies Allergy/AdvReac Type Severity Reaction Status Date / Time Penicillins Allergy Intermediate Rash Verified 07/28/24 17:23 Review of Systems ROS Narrative A ten point review of systems is negative except as noted above. PFSH PFSH Social History Little interest or pleasure in doing things: not at all Feeling down, depressed, or hopeless: not at all Exam Narrative Exam Narrative: Nurses note and vital signs reviewed and patient is not hypoxic. General: The patient appears well and in no apparent distress. Patient is resting comfortably on cart. Skin: Warm, dry, no pallor noted. There is no rash noted. Head: Normocephalic, atraumatic Eye: Normal conjunctiva, no drainage Ears, Nose, Mouth, and Throat: oral mucosa is moist. Nares patent. Cardiovascular: Regular Rate and Rhythm Respiratory: Patient is in no distress, no accessory muscle use, lungs are clear to auscultation, no wheezing, rales or rhonchi Back: non-tender GI: Obese, soft, nontender. Perianal examination shows some dried blood but no external hemorrhoids. Musculoskeletal: The patient has no evidence of calf tenderness, no pitting edema, symmetrical pulses noted bilaterally Neurological: A&O, normal speech Psychiatric: Cooperative Constitutional Vital Signs, click to edit/add: Last Vital Signs Temp 98.3 F 07/28/24 17:23 Pulse 70 07/28/24 17:23 Resp 16 07/28/24 17:23 BP 195/76 H 07/28/24 17:23 Pulse Ox 97 07/28/24 17:23 O2 Del Method Room Air 07/28/24 17:23 Course Vital Signs Vital signs: Vital Signs Temperature 98.3 F 07/28/24 17:23 Pulse Rate 70 07/28/24 17:23 Respiratory Rate 16 07/28/24 17:23 Blood Pressure 195/76 H 07/28/24 17:23 Pulse Oximetry 97 07/28/24 17:23 Oxygen Delivery Method Room Air 07/28/24 17:23 Temperature 98.3 F 07/28/24 17:23 Pulse Rate 70 07/28/24 17:23 Respiratory Rate 16 07/28/24 17:23 Blood Pressure 195/76 H 07/28/24 17:23 Pulse Oximetry 97 07/28/24 17:23 Oxygen Delivery Method Room Air 07/28/24 17:23 Medical Decision Making MDM Narrative Medical decision making narrative: Tests are ordered including CT of the abdomen and the patient is signed out to Dr. Cleveland at change of shift. Differential Diagnosis Differential Diagnosis: Upper GI bleed, lower GI bleed, gastroenteritis Discharge Plan Discharge Patient Disposition: Still a Patient
[2024-07-28 18:27] LABS: Basophils Percent Auto 0.4 % (0.2-2.0); Eosinophils Absolute Auto 0.2 10^3/uL (0.0-0.7); Eosinophils Percent Auto 1.6 % (0.9-7.0); Hematocrit 45.4 % (42.0-54.0); Hemoglobin 15.4 g/dL (14.0-18.0); Immature Granulocytes Abs Auto 0.07 10^3/uL (0.00-0.03); Immature Granulocytes Pct Auto 0.6 % (0.0-0.5); Lymphocytes Absolute Auto 2.7 10^3/uL (1.2-3.8); Lymphocytes Percent Auto 24.6 % (20.5-60.0); Mean Corpuscular HGB Conc 33.9 g/dL (29.9-35.2); Mean Corpuscular Hemoglobin 30.2 pg (25.9-34.0); Mean Platelet Volume 10.5 fL (9.5-13.5); Monocytes Absolute Auto 1.1 10^3/uL (0.3-0.8); Monocytes Percent Auto 9.9 % (1.7-12.0); Neutrophils Absolute Auto 6.9 10^3/uL (1.4-6.5); Neutrophils Percent Auto 62.9 % (43.0-75.0); Platelet Count 222 10^3/uL (150-450); Red Cell Distribution Width 12.2 % (11.0-15.0)
[2024-07-28 18:36] LABS: Anion Gap 13.3; BUN Creatinine Ratio 18.9; Calcium 9.1 mg/dL (8.5-10.1); Carbon Dioxide 29.9 mmol/L (21.0-32.0); Chloride 101 mmol/L (98-107); Estimated GFR (African America >60 (>=60 mL/min/1.73m^2); Estimated GFR (Non-African Ame >60 (>=60 mL/min/1.73m^2); Glucose 107 mg/dL (74-106); Potassium 4.2 mmol/L (3.5-5.1); Sodium 140 mmol/L (136-145)
[2024-07-28 20:40] VITALS: BP 160/75
[2024-07-28 20:55] VITALS: BP 160/75; PULSE 80; O2SAT 95
== END 2024-07-28 20:57 | disposition home or self-care (01) ==
PROVIDERS: Emergency Medicine; Emergency Provider Internal Medicine; PCP Family Medicine
DX: K64.4 Residual hemorrhoidal skin tags (principal); R19.7 Diarrhea, unspecified; Z79.82 Long term (current) use of aspirin
CPT/HCPCS: 36415; 74177; 80048; 85025; 87045; 87046; 87427; 99285; Q9967

== ENCOUNTER 2024-08-19 09:30 | Outpatient (OUT) | payer OTHER, SELFPAY ==
--- OUTSIDE RECORDS SUMMARY | 2024-08-13 23:59 | XMS_ITS | Continuity of Care Document ---
Author Organization [facility] Address [address] [address] Care Team Providers Care Criminal Research Specialist Name Role Phone Etienne Bishop Primary Care Physician Kim Daly Unavailable Unavailable Encounter [facility] [id number] Date(s): 08/13/24 - 08/13/24 [facility] [place] [facility] [address], [address], [place], [place] [address] Encounter Diagnosis Rectal bleeding(Discharge Diagnosis) - 08/13/24 Screening for malignant neoplasm of colon(Discharge Diagnosis) - 08/13/24 Discharge Disposition: Home (Routine DC) Attending Physician: Zhao MACDONALD MD Referring Physician: Etienne Bishop MD Encounter Type: Clinic Allergies, Adverse Reactions, Alerts Substance Criticality Severity Reaction Reaction Severity Status penicillins Rash Hives Active Assessment and Plan Future Appointments Appointment Date:01/16/2025 01:00:00 PM Scheduled Provider:Fabián Sorto MD Location:[facility]iology Clinic Appointment Type:Cardiology Follow Up (FT) Immunizations Given and Recorded Vaccine Date Status Refusal Reason SARS-CoV-2 (COVID-19) mRNAMUL.ORD![id number] 11/21/21 Recorded SARS-CoV-2 (COVID-19) mRNA-1273 vaccine 01/26/21 R ecorded SARS-CoV-2 (COVID-19) mRNA-1273 vaccine 1 06/24/20 Recorded SARS-CoV-2 (COVID-19) mRNA-1273 vaccine 2 05/27/20 Recorded 1Result Comment: 2024-07-30: 50 2Result Comment: 2024-07-30: 50 Medications losartan 100 mg Tab 100 mg = 1 tab(s), Oral, Daily, Refills(s) 0 Start Date: 07/30/24 Status: Ordered Repeat number: 1 Problem List Condition Confirmation Course Effective Dates Status Health St atus Informant Eczema Confirmed Active Gout Confirmed Active High blood pressure Confirmed Active Hypertension Confirmed Active Class 3 obesity Confirmed Active Screening for malignant neoplasm of colon Confirmed Active Rectal bleeding Confirmed Active Procedures Procedure Date Related Diagnosis Body Site Status Arthroscopy of knee 07/21/24 Compl eted Tonsillectomy Completed Social History Social History Type Response Smoking Status Never (less than 100 in lifetime);Never entered on: 08/13/24 Sex Male Sex Representation Male (finding) Patient Care team information Care Team Personnel Name: Etienne Bishop MD Position: FT Physician Member Role: Primary Care Physician Address: [address] [place] [address] Telecom: Name: Kim Daly Position: [facility] Staff Search Member Role: Other Care Team Related Persons Name: BOB BERNSTEIN Name: BOB BERNSTEIN Name: BOB BERNSTEIN Insurance Providers Guarantor name: REY BERNSTEIN Health Plan Information #: 1 Payer: NA Payer Identifier: [id number] Member Number: [id number] Group Number: [id number] Subscriber Identifier: [id number] Relationship to Subscriber: Self Coverage Type: PRIVATE HEALTH INSURANCE Coverage Verification Date: 24 Telecom: Address:
--- OUTSIDE RECORDS SUMMARY | 2024-08-19 09:32 | XMS_ITS | Clinical Summary ---
Author Organization [facility] Address [address] [place] [address] Care Team Providers Care Ladle Puller Name Role Phone Etienne Bishop MD Primary Care Provider [phone] Allergies Active Allergy Reactions Criticality Noted Date Comments Penicillins Rash Low 07/11/2024 Medications losartan (Cozaar) 50 MG tablet TAKE 1 TABLET BY MOUTH EVERY DAY FOR 30 DAYS 5 Active HYDROcodone-ac etaminophen ([place]) 5-325 MG tablet TAKE 1-2 TABLETS BY MOUTH EVERY 4 HOURS NEEDED FOR PAIN FOR 7 DAYS 5 Active hydrocortisone (Anusol-HC) 2.5 % rectal cream APPLY 1 APPLICATION EXTERNALLY TWICE A DAY 5 Active meloxicam (Mobic) 15 MG tablet Take 15 mg by mouth Daily 5 08/02/19 25 Discontin ued(Thera py completed ) benzonatate (Tessalon) 200 MG capsule Take 200 mg by mouth in the morning and 200 mg in the evening and 200 mg before bedtime. 5 08/02/19 25 Discontin ued(Thera py completed ) aspirin 325 MG tablet TAKE 1 TABLET BY MOUTH DAILY *START THE DAY AFTER SURGERY FOR BLOOD CLOT PREVENTION. 5 08/02/19 25 Discontin ued(Thera py completed ) Active Problems No known active problems Encounters Date Type Department Care Team Description 08/01/2024 8:00 AM EDT Office Visit [facility] [address] [address] Chriss Lemon PA Status post arthroscopic surgery of right knee (Primary Dx) 08/01/2024 Bamboo flowsheet [facility] [address] [place] [address] Chriss Lemon PA 08/01/2024 Travel 07/15/2024 Telephone [facility] [address] [place] [address] Gilma Bassett RN cardiac clearance 07/11/2024 8:45 AM EDT Office Visit [facility] [address] [place] [address] Zhao Quintero, DO Pre-op testing (Primary Dx); Acute pain of right knee 07/11/2024 Bamboo flowsheet [facility] [address] [address] Zhao Quintero, 07/11/2024 Travel from Last 3 Months Social History Tobacco Use Types Packs/Day Years Used Date Smoking Tobacco: Never Smokeless Tobacco: Never Tobacco Cessation:Counseling Given: Not Answered Alcohol Use Standard Drinks/Week Comments Not Asked 0 (1 standard drink = 0.6 oz pur e alcohol) Sex and Gender Information Value Date Recorded [...] - - Weight 154 kg (340 lb) 08/01/2024 7:57 AM EDT Height 170.2 cm (5' 7 ) 08/01/2024 7:57 AM EDT Body Mass Index 53.25 08/01/2024 7:57 AM EDT Plan of Treatment Health Maintenance Due Date Last Done Comments CT Colonography 1970 Colonoscopy 1970 Colorectal Cancer Screening 1970 FIT-DNA 1970 FIT 1970 FOBT 1970 Sigmoidoscopy 1970 Influenza Vaccine (Season Ended) 2024 Insurance [employer] Care Teams Ladle Puller Relationship Specialty Start Date End Date Etienne Bishop MD [address] [place] [id number] PCP - General Family Medicine 07/11/24
== END 2024-08-19 09:31 | disposition home or self-care (01) ==
LOC: PST 09:30
PROVIDERS: PCP Family Medicine; Visit Provider Surgery
DX: Z01.818 Encounter for other preprocedural examination (principal); Z12.11 Encounter for screening for malignant neoplasm of colon

== ENCOUNTER 2024-08-27 08:07 | Day surgery (SDC) | payer OTHER, SELFPAY ==
--- NOTE | 2024-08-27 | OP_ITS ---
OPERATION DATE: 08/27/2024 PREOPERATIVE DIAGNOSIS: Colorectal screening. POSTOPERATIVE DIAGNOSIS: 3 mm ascending colon polyp. PROCEDURE: Colonoscopy to cecum with cold forceps polypectomy x1 for sessile ascending colon polyp. SURGEON: Zhao Ocampo M.D. ANESTHESIA: Monitored anesthesia care. ESTIMATED BLOOD LOSS: Less than 1 mL. INDICATIONS AND CONSENT: Patient is a 54-year-old male, presents for colorectal screening. Indications, risks, benefits, alternatives of proceeding with colonoscopy were explained extensively to the patient, including the risks of bleeding, colon perforation or anesthetic complications. All of his questions were answered. Informed consent was obtained. PROCEDURE: Patient brought to the operating room, placed in the left lateral decubitus position. Monitored anesthesia care was provided. Rectal exam was performed which showed no masses or blood. The scope was inserted into the anal canal. Under direct visualization was advanced. It was advanced to the cecum where cecal markings were clearly identified. There was noted to be a good prep. Upon withdrawal of the scope, mucosal surfaces were carefully examined. In the ascending colon, there was noted to be a 3 mm, erythematous, sessile polyp that was removed with cold biopsy forceps with good hemostasis. There were no other mass lesions or polyps. No inflammatory changes or ulcerations. No significant diverticulosis. The scope was retroflexed in the anal canal. There were some prominent rectal veins. No significant hemorrhoidal disease. The scope was then withdrawn. Patient tolerated procedure well, was sent to recovery room in good condition. Follow up surveillance colonoscopy likely in five years but will depend on pathology report. CC: Helen Dodd
[2024-08-27 08:26] VITALS: BP 165/82; PULSE 78; TEMP 36.1; O2SAT 94; BMI 52.4
--- OUTSIDE RECORDS SUMMARY | 2024-08-27 08:31 | XMS_ITS | CCD ---
Author Organization [facility] Care Team Providers Care Trouble Dispatcher Name Role Phone DUNIA ., DR GONSALEZ Consulting Unavailable HOY ., DR GONSALEZ Attending Unavailable HOY ., DR GONSALEZ Admitting Unavailable HOY ., DR GONSALEZ Primary Care Unavailable Annmarie Mann Unavailable Wallace Bishop MD Primary Care Provider [phone] Newton Minor Referring Unavailable Newton Minor Attending Unavailable Newton Minor Admitting Unavailable Wallace Bishop Primary Care Physician Wallace Bishop MD Primary Care Provider [phone] Kim Daly Unavailable Unavailable NEWTON MINOR Attending Unavailable MILI LEMON Attending Unavailable MILI LEMON Referring Unavailable Othman, Fabián Admitting Unavailable Othman, Fabián Attending Unavailable Newton Minor Referring Unavailable Minor, Newton T Admitting Unavailable MinorNewton Attending Unavailable MinorNewton Referring Unavailable Othman, Fabián Consulting Unavailable OthmanFabián Attending Unavailable Fabián Sorto Referring Unavailable Fabián Sorto Admitting Unavailable MD Fabián Sorto Consulting Unavailable Othman, Mahmoud Consulting Unavailable MinorNewton T Admitting Unavailable MinorNewton Attending Unavailable MinorNewton Referring Unavailable NILLNewton Attending Unavailable Wallace Bishop Referring Unavailable Allergies Allergy Classification Reported Allergen(s) Allergy Type Date of Onset Reaction(s) Facility (1 source) Penicillin Drug Allergy 02-12-2021 [facility] (1 source) Penicillin G Drug Allergy Unknown [employer] Other (11 sources) Penicillin; Translations: [penicillins] Drug Allergy 07-11-2024 [facility] Medications Current Medications Medication Drug Class(es) Dates Sig (Normalized) Sig (Original) acetaminophen 325 mg / HYDROcodone bitartrate 5 mg oral tablet (6 sources) Opioid Agonist Start: 07-14-2024 take 1-2 tablets by mouth every four hours as needed for pain HYDROcodone-acetami nophen ([place]) 5-325 MG tablet TAKE 1-2 TABLETS BY MOUTH EVERY 4 HOURS NEEDED FOR PAIN FOR 7 DAYS 07/14/2024 Active aspirin 325 mg oral tablet (6 sources) Platelet Aggregation Inhibitor, Nonsteroidal Anti-inflammatory Drug Start: 07-14-2024 End: 08-13-2024 take 1 tablet by mouth once daily aspirin 325 MG tablet TAKE 1 TABLET BY MOUTH DAILY *START THE DAY AFTER SURGERY FOR BLOOD CLOT PREVENTION. 07/14/2024 08/01/2024 Discontinued (Therapy completed) benzonatate 200 mg oral capsule (5 sources) Non-narcotic Antitussive Start: 06-19-2024 End: 08-01-2024 take 1 capsule by mouth in the morning, then take 1 capsule by mouth in the evening, then take 1 capsule by mouth at bedtime benzonatate (Tessalon) 200 MG capsule Take 200 mg by mouth in the morning and 200 mg in the evening and 200 mg before bedtime. 06/19/2024 08/01/2024 Discontinued (Therapy completed) hydrocortisone 25 mg/ml rectal cream (2 sources) Corticosteroid Start: 07-29-2024 hydrocortisone (Anusol-HC) 2.5 % rectal cream APPLY 1 APPLICATION EXTERNALLY TWICE A DAY 07/29/2024 Active losartan potassium 100 mg oral tablet (10 sources) Angiotensin 2 Receptor Jia Start: 07-30-2024 take 1 tablet by mouth once daily losartan 100 mg Tab 100 mg = 1 tab(s), Oral, Daily, Refills(s) 0 Start Date: 07/30/24 Status: Ordered Repeat number: 1 Start: 06-26-2024 take 1 tablet by didi once daily losartan (Cozaar) 50 MG tablet TAKE 1 TABLET BY MOUTH EVERY DAY FOR 30 DAYS 06/26/2024 Active meloxicam 15 mg oral tablet (5 sources) Nonsteroidal Anti-inflammatory Drug Start: 05-20-2024 End: 08-01-2024 take 1 tablet by mouth once daily meloxicam (Mobic) 15 MG tablet Take 15 mg by mouth Daily 05/20/2024 08/01/2024 Discontinued (Therapy completed) Problems Problem Classification Problem Date Documented Da te Episodic/Chronic Allergic reactions (1 source) Eczema 07-30-2024 Episodic Essential hypertension (6 sources) Hypertensive disorder 07-14-2024 Chronic Gastrointestinal hemorrhage (2 sources) Hemorrhage of rectum and anus; Translations: [Hemorrhage of anus and rectum] Onset: 08-13-2024 Episodic 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) Gout, unspecified; Translations: [Gout] Onset: 05-25-2022 Chronic Other injuries and conditions due to external causes (1 source) Foreign body in right ear, initial encounter Episodic Other non-traumatic joint disorders (2 sources) Pain in right knee; Translations: [Pain in joint, lower leg] 07-11-2024 Episodic Other nutritional; endocrine; and metabolic disorders (1 source) Obese class III 07-30-2024 Chronic Other screening for suspected conditions (not mental disorders or infectious disease) (1 source) Screening for malignant neoplasm of colon done; Translations: [Encounter for screening for malignant neoplasm of colon] Onset: 08-13-2024 Episodic Unclassified (1 source) Patient encounter status 08-13-2024 Results Test Name Value Interpretation Reference Range Facility Ambulatory Visit Summaryon 0 08-13-2024 Ambulatory Visit Summary Ambulatory Visit Summary REY FERRERA :1970 Visit Date:08/13/2024 Ambulatory Visit Instructions Your Diagnosis Rectal bleeding Your Care Team Attending Physician - Newton MACDONALD MD Primary Care Physician - Wallace Bishop MD Referring Physician - Wallace Bishop MD This Is Your Medications List losartan (losartan 100 mg Tab) Procedures Performed Arthroscopy of knee (07/21/2024), Tonsillectomy. Discharge Vitals Heart Rate (Peripheral) 76 Respiratory Rate 16 Blood Pressure 146/76 Height 167.6 cm Height 66 in Weight 155.4 kg Weight 342.598 lb BMI 55.32 What to do next Scheduled Follow-Up Appointments Sunday 1:00 PM EST With: Fabián Sorto MD Where: [facility] Medications What How Much When Instructions Unchanged losartan (losartan 100 mg Tab) 1 Tablets By Mouth Every day Allergies penicillins (Rash, Hives) Problems Ongoing - Any problem that you are currently receiving treatment for. Class 3 obesity Eczema Gout Hypertension Morbid obesity with BMI of 50.0-59.9, adult Rectal bleeding Patient Survey You may receive a survey via text or e-mail asking about your office visit. Please share your experience with us by completing your survey. We appreciate your feedback and thank you for choosing us for your care. [facility] Operative Reporton Operative Report Operative Report SURGERY DATE: 07/21/2024 PREOPERATIVE DIAGNOSIS: [...] the leg was placed in a leg briggs. It was prepped and draped in sterile [...] PATIENT CONDITION: Satisfactory Juno Whitman Dictated: 07/21/2024 [id number] Transcribed: 07/21/2024 cc:Wallace Bishop MD [facility] Comment on above: Result Comment: Elec tronically Signed By: Newton Minor DO\.br\Date and Time Signed: 07/23/24 14:31 EDT Main OR Intraoperative Recor don 07-22-2024 Main OR Intraoperative Record Main OR Intraoperative Record IntraOp Document Type FT Summary Primary Physician: Newton Minor DO Finalized Date/Time: 07/22/24 10:28:33 Pt. Name: REY FERRERA/Sex: 1970 Male Med Rec #: [id number] Physician: Newton Minor DO Financial #: [id number] Pt. Type: A Room/Bed: Admit/Disch: 07/21/24 09:53:57 - 07/21/24 15:50:00 Institution: Case Times FT Entry 1 Patient Times In Room 07/21/24 13:26:00 Out Room 07/21/24 14:08:00 Procedure Times Start 07/21/24 13:43:00 Stop 07/21/24 14:04:00 Anesthesia Times Start 07/21/24 13:26:00 Stop 07/21/24 14:08:00 Last Modified By: Frank Oliva 07/21/24 14:32:11 Case Attendance FT Entry 1 Entry 2 Entry 3 Case Attendee Harriet MADRIGAL, EMBROIDERY FINISHER, [facility], Newton Geiger CST, Florence Borges Role Performed EMBROIDERY FINISHER Surgeon - Primary DIGITAL HARDWARE DESIGN ENGINEER/SA Time In 07/21/24 13:26:00 07/21/24 13:26:00 07/21/24 13:26:00 Time Out 07/21/24 14:08:00 07/21/24 14:08:00 07/21/24 14:08:00 Procedure KNEE ARTHROSCOPY(Right) KNEE ARTHROSCOPY(Right) KNEE ARTHROSCOPY(Right) Comments Last Modified By: Frank Oliva Terry T Sweene, Terry T 07/21/24 14:32:13 07/21/24 14:32:13 07/21/24 14:32:13 Entry 4 Entry 5 Entry 6 Case Attendee Frank Oliva Alfons Ii F Dent CST, Jaskaran Role Performed Dinker - Primary Dinker - Relief Scrub - Primary Time In [...] PreOp Antibiotic Yes Time Out Harriet MADRIGAL, EMBROIDERY FINISHER, Queen Jose Miguel Borges, Newton Minor DO, Wilhelm CST, Florence Blum, Frank Oliva, Fidel Waggoner Ii F, Glo DIGITAL HARDWARE DESIGN ENGINEER, Jaskaran Time Out Complete 07/21/24 13:33:00 Outcomes Met? [...] Procedure Yes Primary Surgeon Newton Minor DO Start 07/21/24 13:43:00 Stop 07/21/24 14:04:00 Anesthesia Type [...] and tissue Entry 1 Skin Integrity Intact, [place], Warm, & Skin Abnormality No Dry Outcomes Met? Yes Last Modified By: Frank Oliva 05/19/25 13:52:14 Post-Care Text: The patient is free from signs and symptoms of injury caused by extraneous objects Patient Positioning FT Pre-Care Text: Identifies physical alterations that require additional precautions for procedure-specific positioning, verifies presence of prosthetics or corrective devices, positions the patient, evaluates the patient for signs and symptoms of injury as a result (more content not included)... Normal [facility] Discharge Instructionson Discharge Instructions Discharge Instructions REY FERRERA :1970 Visit Date:07/21/2024 Inpatient Discharge Instructions Your Care Team Admitting Physician - Newton Minor DO Referring Physician - Newton Minor DO Reason for Your Visit RIGHT KNEE MEDIAL MENISCAL TEAR Your Diagnosis Acute medial meniscus tear of right knee This Is Your Medications List acetaminophen-hydroco done ([place] 325 mg-5 mg oral tablet) aspirin (aspirin [...] PM EST With: Fabián Sorto MD Where: [facility] New Follow Up Appointments after Discharge Follow Up with CLARK Whitman When: 08/01/2024 08:00 AM EDT Comments: Keep scheduled appointment Call for any problems. Where: [address] [place] [phone] [employer] (1) Medications What How Much When Why Instructions Next Dose Unchanged acetaminophen-hydroco done ([place] 325 mg-5 mg oral tablet) See instructions Acute medial meniscus tear of right knee 1-2 tab(s) Oral q4hr PRN Pain. Duration 7 days. Pickup at [facility]/pharmacy #[id number] Unchanged aspirin (aspirin 325 mg Tab) 1 Tablets By Mouth Every day Duration: 30 Days Start the day after surgery for blood clot prevention. Pickup at [facility]/pharmacy #[id number] Unchanged losartan (losartan 50 mg Tab) 1 Tablets By Mouth Every day Pharmacy Information [facility]/pharmacy #[id number]: [address], [place] [phone] Test Results No qualifying data available. Allergies penicillins (Rash, Hives) Education Materials [address], [place] [facility] DISCHARGE INSTRUCTIONS: KNEE ARTHROSCOPY [...] knee is not cause for concern. It repr (more content not included)... Normal [facility] Comment on above: Result Comment: Elec tronically Signed By: Aman GAUTAM, Samanta Dee\.br\Date and Time Signed: 07/21/24 15:01 EDT Discharge Instructions Discharge Instructions REY FERRERA :1970 Visit Date:07/21/2024 Inpatient Discharge Instructions Your Care Team Admitting Physician - Newton Minor DO Referring Physician - Newton Minor DO Reason for Your Visit RIGHT KNEE MEDIAL MENISCAL TEAR Your Diagnosis Acute medial meniscus tear of right knee This Is Your Medications List acetaminophen-hydroco done ([place] 325 mg-5 mg oral tablet) aspirin (aspirin [...] PM EST With: Fabián Sorto MD Where: [facility] New Follow Up Appointments after Discharge Follow Up with CLARK Whitman When: 08/01/2024 08:00 AM EDT Comments: Keep scheduled appointment Call for any problems. Where: [address] [place] [address]- Business (1) Medications What How Much When Why Instructions Next Dose Unchanged acetaminophen-hydroco done ([place] 325 mg-5 mg oral tablet) See instructions Acute medial meniscus tear of right knee 1-2 tab(s) Oral q4hr PRN Pain. Duration 7 days. Pickup at [facility]/pharmacy #[id number] Unchanged aspirin (aspirin 325 mg Tab) 1 Tablets By Mouth Every day Duration: 30 Days Start the day after surgery for blood clot prevention. Pickup at [facility]/pharmacy #[id number] Unchanged losartan (losartan 50 mg Tab) 1 Tablets By Mouth Every day [id number] [address], [place] [phone] Test Results No qualifying data available. Allergies [...] signed up for this yet, please contact [employer] at [phone] to get signed up today. Patient Name: REY FERRERA I have received these discharge instructions and my questions have been answered. Patient/Representativ e Name: Patient/Representativ e Signature: Relationship to Patient: Witness Name/Signature: Date: Normal [facility] Comment on above: Result Comment: Elec tronically Signed By: Aman GAUTAM, Samanta Dee\.mariela\Date and Time Signed: 07/21/24 14:56 EDT Main OR PACU I Recordon 07-03 Main OR PACU I Record Main OR PACU I Rec ord PACU Phase I Document Type FT Summary Primary Physician: Newton Minor DO Finalized Date/Time: 07/21/24 14:54:42 Pt. Name: REY FERRERA Cem/Sex: 1970 Male Med Rec #: [id number] Physician: Newton Minor DO Financial #: [id number] Pt. Type: A Room/Bed: [place] [address] Admit/Disch: 07/21/24 09:53:57 - Institution: Case Times [...] Signed By: Marleni Gaytan RN 07/21/24 14:54 Normal [facility] Main OR Preoperative Recordo n 07-21-2024 Main OR Preoperative Record Main OR Preoperative Record PreOp Document Type FT Summary Primary Physician: Newton Minor DO Finalized Date/Time: 07/21/24 13:45:59 Pt. Name: IBANREY.O.B./Sex: 1970 Male Med Rec #: [id number] Physician: Newton Minor DO Financial #: [id number] Pt. Type: A Room/Bed: [place] [address] Admit/Disch: 07/21/24 09:53:57 - Institution: Case Times [...] Signatures Signed By: Frank Oliva 07/21/24 13:45 Normal [facility] Heart and Vascular Office/Cl inic Noteon 07-17-2024 Heart and Vascular Office/Clinic Note Heart and Vascular Office/Clinic Note Chief Complaint New Patient - Abn. [...] data Procedure/Surgical History Dental surgical procedure. Medications acetaminophen-hydroco done 325 mg-5 mg oral tablet, 1 tab(s), [...] mg= 1 mL, IV Push, q4hr, PRN [place] 325 mg-5 mg oral tablet, See Instructions, [...] cardiac standpoint. Thank you for the referral Normal [facility] Comment on above: Result Comment: Elec tronically Signed By: Macario HENRY, Fabián\.br\Date and Time Signed: 07/17/24 11:09 EDT BMPon 07-14-2024 Anion gap [Moles/Vol] 10 mmol/L Normal 6-16 [facility] Comment on above: Performed By: #### 2 [id number] #### [facility] [address] [place] [address] Calcium [Mass/Vol] 8.9 mg/dL Normal 8.9-11.1 [facility] Comment on above: Performed By: #### 2 [id number] #### [facility] [address] [place] [address] Chloride [Moles/Vol] 103 mmol/L Normal 101-111 [facility] Comment on above: Performed By: #### 2 [id number] #### [facility] [address] [place] [address] CO2 [Moles/Vol] 28 mmol/L Normal 21-31 [facility] Comment on above: Performed By: #### 2 [id number] #### [facility] [address] [place] [address] Creatinine [Mass/Vol] 0.9 mg/dL Normal 0.5-1.3 [facility] Comment on above: Performed By: #### 2 [id number] #### [facility] [address] [place] [address] Glucose [Mass/Vol] 103 mg/dL Normal 55-199 [facility] Comment on above: Performed By: #### 2 [id number] #### [facility] [address] [place] [address] Potassium [Moles/Vol] 3.9 mmol/L Normal 3.5-5.3 [facility] Comment on above: Performed By: #### 2 295348 #### [facility] [address] [place] [address] Sodium [Moles/Vol] 137 mmol/L Normal 135-145 [facility] Comment on above: Performed By: #### 2 [id number] #### [facility] [address] [place] [address] Urea nitrogen [Mass/Vol] 16 mg/dL Normal 5-21 [facility] Comment on above: Performed By: #### 2 [id number] #### [facility] [address] [place] [address] Urea nitrogen/Creatinine [Mass ratio] 18 No Units Normal 10-20 [facility] Comment on above: Performed By: #### 2 [id number] #### [facility] [address] [place] [address] CBC w/ Auto Diffon 5 Basophils/100 WBC (Bld) 0.2 % Normal 0.0-2.0 [facility] Comment on above: Performed By: #### 2 [id number] #### [facility] [address] [place] [address] Basophils/Leukocytes Auto (Bld) [Pure # fraction] 0.0 E9/L Normal 0.0-0.2 [facility] Comment on above: Performed By: #### 2 645751 #### [facility] [address] [place] [address] Eosinophils (Bld) [#/Vol] 0.1 E9/L Normal 0.0-0.5 [facility] Comment on above: Performed By: #### 2 498373 #### [facility] [address] [place] [address] Eosinophils/100 WBC (Bld) 0.7 % Normal 0.0-8.0 [facility] Comment on above: Performed By: #### 2 [id number] #### [facility] [address] [place] [address] Erythrocyte distribution width (RBC) [Ratio] 13.5 % Normal 10.9-14.2 [facility] Comment on above: Performed By: #### 2 [id number] #### [facility] [address] [place] [address] Hematocrit (Bld) [Volume fraction] 46.0 % Normal 37.7-49.0 [facility] Comment on above: Performed By: #### 2 549642 #### [facility] [address] [place] [address] Hemoglobin (Bld) [Mass/Vol] 15.7 g/dL Normal 13.5-17.5 [facility] Comment on above: Performed By: #### 2 [id number] #### [facility] [address] [place] [address] Lymphocytes (Bld) [#/Vol] 2.6 E9/L Normal 1.0-4.0 [facility] Comment on above: Performed By: #### 2 775074 #### [facility] [address] [place] [address] Lymphocytes/100 WBC (Bld) 22.8 % Normal 14.0-50.0 [facility] Comment on above: Performed By: #### 2 769315 #### [facility] [address] [place] [address] MCH (RBC) [Entitic mass] 30.9 pg Normal 27.0-34.0 [facility] Comment on above: Performed By: #### 2 [id number] #### [facility] [address] [place] [address] MCHC (RBC) [Mass/Vol] 34.2 g/dL Normal 31.4-36.0 [facility] Comment on above: Performed By: #### 2 964482 #### [facility] [address] [place] [address] MCV (RBC) [Entitic vol] 90.4 fL Normal 80.0-100.0 [facility] Comment on above: Performed By: #### 2 [id number] #### [facility] [address] [place] [address] Monocytes (Bld) [#/Vol] 0.8 E9/L Normal 0.2-1.0 [facility] Comment on above: Performed By: #### 2 701230 #### [facility] [address] [place] [address] Neutrophils (Bld) [#/Vol] 7.7 E9/L High 2.0-7.5 [facility] Comment on above: Performed By: #### 2 812288 #### [facility] [address] [place] [address] Neutrophils/100 WBC (Bld) 69.0 % Normal 36.0-75.0 [facility] Comment on above: Performed By: #### 2 350305 #### [facility] [address] [place] [address] Platelet 254.0 E9/L Normal 150.0-500.0 [facility] Comment on above: Performed By: #### 2 050617 #### [facility] [address] [place] [address] Platelet mean volume (Bld) [Entitic vol] 9.4 fL Normal 6.4-10.8 [facility] Comment on above: Performed By: #### 2 [id number] #### [facility] [address] [place] [address] RBC (Bld) [#/Vol] 5.1 E12/L Normal 4.3-5.9 [facility] Comment on above: Performed By: #### 2 [id number] #### [facility] [address] [place] [address] WBC corrected for nucl RBC Auto (Bld) [#/Vol] 11.2 E9/L High 4.0-11.0 [facility] Comment on above: Performed By: #### 2 [id number] #### [facility] [address] [place] [address] CHEMISTRYOrdered By: SYSTEM SYSTEM on 07-14-2024 Anion gap [Moles/Vol] 10 mmol/L Normal 6 - 16 mEq/L R emisol Chem Calcium [Mass/Vol] 8.9 mg/dL Normal 8.9 - 11. 1 mg/dL Remisol Chem Chloride [Moles/Vol] 103 mmol/L Normal 101 - 1 11 mmol/L Remisol Chem CO2 [Moles/Vol] 28 mmol/L Normal 21 - 31 mmol/L Remis ol Chem Creatinine [Mass/Vol] 0.9 mg/dL Normal 0.5 - 1.3 mg/dL Remisol Chem eGFR 101 mL/min/1.73 m2 Normal >=59mL/mi n/1.7 3 m2 Remisol Chem Glucose [Mass/Vol] 103 mg/dL Normal 55 - 199 mg/dL Re misol Chem Potassium [Moles/Vol] 3.9 mmol/L Normal 3.5 - 5.3 mmol/L Remisol Chem Sodium [Moles/Vol] 137 mmol/L Normal 135 - 145 mmol/L Remisol Chem Urea nitrogen [Mass/Vol] 16 mg/dL Normal 5 - 21 mg/dL [facility] Chem Urea nitrogen/Creatinine [Mass ratio] 18 mg/mg Normal 10 - 20 Rem[facility] Chem HEMATOLOGYOrdered By: SYSTEM SYSTEM on 07-14-2024 Basophils/100 WBC (Bld) 0.2 % Normal 0.0 - 2.0 % Remisol Heme Basophils/Leukocytes Auto (Bld) [Pure # fraction] 0.0 E9/L Normal 0.0 - 0.2 E9/L [facility] Eosinophils (Bld) [#/Vol] 0.1 E9/L Normal 0.0 - 0.5 E9/L [facility] Eosinophils/100 WBC (Bld) 0.7 % Normal 0.0 - 8.0 % [facility] Erythrocyte distribution width (RBC) [Ratio] 13.5 % Normal 10.9 - 14.2 % [facility] Hematocrit (Bld) [Volume fraction] 46.0 % Normal 37.7 - 49.0 % [facility] Hemoglobin (Bld) [Mass/Vol] 15.7 g/dL Normal 13.5 - 17.5 gm/dL [facility] Lymphocytes (Bld) [#/Vol] 2.6 E9/L Normal 1.0 - 4.0 E9/L [facility] Lymphocytes/100 WBC (Bld) 22.8 % Normal 14.0 - 50.0 % [facility] MCH (RBC) [Entitic mass] 30.9 pg Normal 27.0 - 34.0 pg [facility] MCHC (RBC) [Mass/Vol] 34.2 g/dL Normal 31.4 - 36.0 gm/dL [facility] MCV (RBC) [Entitic vol] 90.4 fL Normal 80.0 - 100.0 fL [facility] Monocytes (Bld) [#/Vol] 0.8 E9/L Normal 0.2 - 1.0 E9/L [facility] Monocytes/100 WBC (Bld) 7.3 % Normal 4.0 - 14.0 % [facility] Neutrophils (Bld) [#/Vol] 7.7 E9/L High 2.0 - 7.5 E9/L [facility] Neutrophils/100 WBC (Bld) 69.0 % Normal 36.0 - 75.0 % [facility] Platelet 254.0 E9/L Normal 150.0 - 500.0 E9/L [facility] Platelet mean volume (Bld) [Entitic vol] 9.4 fL Normal 6.4 - 10.8 fL [facility] RBC (Bld) [#/Vol] 5.1 E12/L Normal 4.3 - 5.9 E12/L [facility] WBC corrected for nucl RBC Auto (Bld) [#/Vol] 11.2 E9/L High 4.0 - 11.0 E9/L [facility] Inpatient Patient Summaryon 07-14-2024 Inpatient Patient Summary Inpatient Patient Summary [address] [address] [facility] Clinical Discharge Instructions PERSON INFORMATION Name: REY FERRERA [facility] SAULT#:[id number] PHYSICIANS Admitting Physician: Newton Minor DO Attending Physician: Newton Minor DO PCP: Wallace Bishop MD Discharge Diagnosis: Comment: PATIENT EDUCATION INFORMATION Instructions: Medication Leaflets: Follow up: With: Address: When: Newton Minor [address] [place], [place] [id number] Business (1) Comments: Keep scheduled appointment Type Location Start [facility] Surgery [facility] Surgical Services 07/21/2024 2:45 PM 07/21/2024 3:30 PM Confirmed MEDICATION LIST Medications to Continue with No Changes Other Medications losartan (losartan 50 mg Tab) 1 Tablets By Mouth every day. Comment: Normal [facility] Outpatient Surgery Discharge Instructionon 07-14-2024 Outpatient Surgery Discharge Instruction Outpatient Surgery Discharge Instruction [facility] [address] [place], [place] [address] Patient Discharge Instructions PERSON INFORMATION Name: REY FERRERA Date of : 1970 Current Date: 07/14/2024 12:57:32 PHYSICIANS Admitting Physician: Newton Minor DO Discharge Diagnosis: REY FERRERA has been given the following list of [...] THE NEAREST EMERGENCY ROOM OR CALL 911 IIBAN ANTHONY, have received the attached patient education materials/instruction s and have verbalized understanding: May we do a follow up call? Yes No I was present when discharge instructions were given Patient Signature Date Clinican/Nurse Signature Date Follow up: With: Address: When: Newton Minor [address] [place], [place] [id number] [facility] (1) Comments: Keep scheduled appointment Type Location Start [facility] Surgery [facility] Surgical Services 07/21/2024 2:45 PM 07/21/2024 3:30 [...] to serve you. Thank you for choosing [facility] HERE ARE THE MEDICATION CHANGES THAT OCCURRED DURING YOUR HOSPITAL STAY Medications to Continue with No Changes Other Medications losartan (losartan 50 mg Tab) 1 Tablets By Mouth every day. PATIENT EDUCATION INFORMATION Instructions: Medication Leaflets: Normal [facility] eGFRon 07-14-2024 eGFR 101 mL/min/1.73 m2 Normal >=59 [facility] Comment on above: Performed By: #### 1 [id number] ####[facility] [address] [place] [address] TITI by IFAon 05-28-2022 Antinuclear Antibodies, IFA Negative Normal [facility] Comment on above: Result Comment: Nega tive <1:80 Borderline 1:80 Positive >1:80 ICAP nomenclature: AC-0 For more information about Hep-2 cell patterns use ANApatterns.org, the official website for the International Consensus on Antinuclear Antibody (TITI) Patterns (ICAP). Performed By: #### A NAIFA #### [facility] [address] [place] [address] Dr. Lisbet Bowser TITI DIRECTon 05-26-2022 TITI Direct Negative Normal Negative [facility] Comment on above: Performed By: #### A NAD #### [facility] [address] [place] [address] Dr. Lisbet Bowser ANTISTREPTOLYSIN O AB (ASO)o n 05-26-2022 Antistreptolysin O Ab 118.2 IU/mL Normal 0.0-200.0 [facility] Comment on above: Performed By: #### A SOAB #### [facility] [address] [place] [address] Dr. Lisbet Bowser C3 and C4 COMPLEMENTon 05-26 Complement C3, Serum 152 mg/dL Normal 82-167 [facility] Comment on above: Performed By: #### C SUITE #### [facility] [address] [place] [address] Dr. Lisbet Bowser Complement C4, Serum 20 mg/dL Normal 12-38 [facility] Comment on above: Performed By: #### C SUITE #### [facility] [address] [place] [address] Dr. Lisbet Bowser SLE PROFILE Aon 05-26-2022 Anti-DNA (DS) Ab Qn 1 IU/mL Normal 0-9 [facility] Comment on above: Result Comment: Nega tive <5 Equivocal 5 - 9 Positive >9 Performed By: #### S MAXWELL #### [facility] [address] [place] [address] Dr. Lisbet Bowser Antichromatin Antibodies <0.2 Normal 0.0-0.9 [facility] Comment on above: Performed By: #### S MAXWELL #### [facility] [address] [place] [address] Dr. Lisbet Bowser RA Latex Turbid. <10.0 Normal <14.0 [facility] Comment on above: Performed By: #### S MAXWELL #### [facility] [address] [place] [address] Dr. Lisbet Bowser PAGE DESIGNER Antibodies <0.2 Normal 0.0-0.9 [facility] Comment on above: Performed By: #### S MAXWELL #### [facility] [address] [place] [address] Dr. Lisbet Bowser Sjogrpilar'miguel Anti-SS-A <0.2 Normal 0.0-0.9 [facility] Comment on above: Performed By: #### S MAXWELL #### [facility] [address] [place] [address] Dr. Lisbet Bowser Sjogrpilar's Anti-SS-B <0.2 Normal 0.0-0.9 [facility] Comment on above: Performed By: #### S MAXWELL #### [facility] [address] [place] [address] Dr. Lisbet Bowser [place] Antibodies <0.2 Normal 0.0-0.9 [facility] Comment on above: Performed By: #### S MAXWELL #### [facility] [address] [place] [address] Dr. Lisbet Bowser CBC AUTO DIFFon 05-25-2022 BASO # 0.0 103/ul Normal 0.0-0.1 [facility] Comment on above: Performed By: #### C BC #### [facility] [address] [place] [address] Dr. Lisbet Bowser Basophils/100 WBC (Bld) 0.2 % Normal 0.2-2.0 [facility] Comment on above: Performed By: #### C BC #### [facility] [address] [place] [address] Dr. Lisbet Bowser EO # 0.0 103/ul Normal 0.0-0.7 [facility] Comment on above: Performed By: #### C BC #### [facility] [address] [place] [address] Dr. Lisbet Bowser Eosinophils/100 WBC (Bld) 0.0 % Critically low 0.9-7.0 [facility] Comment on above: Performed By: #### C BC #### [facility] [address] [place] [address] Dr. Lisbet Bowser Erythrocyte distribution width (RBC) [Ratio] 12.3 % Normal 11.0-15.0 [facility] Comment on above: Performed By: #### C BC #### [facility] [address] [place] [address] Dr. Lisbet Bowser Hematocrit (Bld) [Volume fraction] 45.3 % Normal 42.0-54.0 [facility] Comment on above: Performed By: #### C BC #### [facility] [address] [place] [address] Dr. Lisbet Bowser Hemoglobin (Bld) [Mass/Vol] 15.5 g/dL Normal 14.0-18.0 [facility] Comment on above: Performed By: #### C BC #### [facility] [address] [place] [address] Dr. Lisbet Bowser IG # 0.05 10e3/ul Critically high 0.00-0.03 [facility] Comment on above: Performed By: #### C BC #### [facility] [address] [place] [address] Dr. Lisbet Bowser IG % 0.4 % Normal 0.0-0.5 [facility] Comment on above: Performed By: #### C BC #### [facility] [address] [place] [address] Dr. Lisbet Bowser LYMPH # 1.6 103/ul Normal 1.2-3.8 [facility] Comment on above: Performed By: #### C BC #### [facility] [address] [place] [address] Dr. Lisbet Bowser Lymphocytes/100 WBC (Bld) 13.3 % Critically low 20.5-60.0 [facility] Comment on above: Performed By: #### C BC #### [facility] [address] [place] [address] Dr. Lisbet Bowser MANUAL DIFF REQ NO Normal [facility] Comment on above: Performed By: #### C BC #### [facility] [address] [place] [address] Dr. Lisbet Bowser MCH (RBC) [Entitic mass] 29.6 pg Normal 25.9-34.0 [facility] Comment on above: Performed By: #### C BC #### [facility] [address] [place] [address] Dr. Lisbet Bowser MCHC (RBC) [Mass/Vol] 34.2 g/dL Normal 29.9-35.2 [facility] Comment on above: Performed By: #### C BC #### [facility] [address] [place] [address] Dr. Lisbet Bowser MCV (RBC) [Entitic vol] 86.6 fL Normal 80.0-94.0 [facility] Comment on above: Performed By: #### C BC #### [facility] [address] [place] [address] Dr. Lisbet Bowser MONO # 0.5 103/ul Normal 0.3-0.8 [facility] Comment on above: Performed By: #### C BC #### [facility] [address] [place] [address] Dr. Lisbet Bowser Monocytes/100 WBC (Bld) 4.5 % Normal 1.7-12.0 [facility] Comment on above: Performed By: #### C BC #### [facility] [address] [place] [address] Dr. Lisbet Bowser NEUT # 9.7 103/ul Critically high 1.4-6.5 [facility] Comment on above: Performed By: #### C BC #### [facility] [address] [place] [address] Dr. Lisbet Bowser Neutrophils/100 WBC (Bld) 81.6 % Critically high 43.0-75.0 [facility] Comment on above: Performed By: #### C BC #### [facility] [address] [place] [address] Dr. Lisbet Bowser Platelet mean volume (Bld) [Entitic vol] 11.0 fL Normal 9.5-13.5 [facility] Comment on above: Performed By: #### C BC #### [facility] [address] [address] [address] Lisbet Bowser PLT 251 103/ul Normal 150-450 [facility] Comment on above: Performed By: #### C BC #### [facility] [address] [place] [address] Dr. Lisbet Bowser RBC 5.23 106/ul Normal 4.70-6.10 [facility] Comment on above: Performed By: #### C BC #### [facility] [address] [place] [address] Dr. Lisbet Bowser WBC 11.9 103/ul Critically high 4.0-11.0 [facility] Comment on above: Performed By: #### C BC #### [facility] [address] [place] [address] Dr. Lisbet Bowser CRPon 05-25-2022 CRP 2.3 mg/dL Critically high <=1.0 [facility] Comment on above: Performed By: #### C MP, CRP, URIC #### [facility] [address] [place] [address] Dr. Lisbet Bowser PROF 14(COMP METB)on 023 Albumin [Mass/Vol] 3.6 g/dL Normal 3.4-5.0 [facility] Comment on above: Performed By: #### C MP, CRP, URIC #### [facility] [address] [place] [address] Dr. Lisbet Bowser Albumin/Globulin [Mass ratio] 1.0 {ratio} Normal [facility] Comment on above: Performed By: #### C MP, CRP, URIC #### [facility] [address] [place] [address] Dr. Lisbet Bowser ALP [Catalytic activity/Vol] 55 U/L Normal 46-116 [facility] Comment on above: Performed By: #### C MP, CRP, URIC #### [facility] [address] [address] [address] Lisbet Bowser ALT [Catalytic activity/Vol] 33 U/L Normal 16-63 [facility] Comment on above: Performed By: #### C MP, CRP, URIC #### [facility] [address] [address] [address] Lisbet Bowser Anion gap [Moles/Vol] 14.3 mmol/L Normal [facility] Comment on above: Performed By: #### C MP, CRP, URIC #### [facility] [address] [place] [address] Dr. Lisbet Bowser AST [Catalytic activity/Vol] 18 U/L Normal 15-37 [facility] Comment on above: Performed By: #### C MP, CRP, URIC #### [facility] [address] [place] [address] Dr. Lisbet Bowser Bilirubin [Mass/Vol] 0.7 mg/dL Normal 0.2-1.0 [facility] Comment on above: Performed By: #### C MP, CRP, URIC #### [facility] [address] [place] [address] Dr. Lisbet Bowser Calcium [Mass/Vol] 9.1 mg/dL Normal 8.5-10.1 [facility] Comment on above: Performed By: #### C MP, CRP, URIC #### [facility] [address] [place] [address] Dr. Lisbet Bowser Chloride [Moles/Vol] 105 mmol/L Normal 98-107 [facility] Comment on above: Performed By: #### C MP, CRP, URIC #### [facility] [address] [place] [address] Dr. Lisbet Bowser CO2 [Moles/Vol] 24.6 mmol/L Normal 21.0-32.0 [facility] Comment on above: Performed By: #### C MP, CRP, URIC #### [facility] [address] [address] [address] Lisbet Bowser Creatinine [Mass/Vol] 0.91 mg/dL Normal 0.70-1.30 [facility] Comment on above: Performed By: #### C MP, CRP, URIC #### [facility] [address] [address] [address] Lisbet Bowser EGFR-AF ICELANDIC >60 Normal >=60 [facility] Comment on above: Performed By: #### C MP, CRP, URIC #### [facility] [address] [address] [address] Lisbet Bowser EGFR-NON AF ICELANDIC >60 Normal >=60 [facility] Comment on above: Performed By: #### C MP, CRP, URIC #### [facility] [address] [address] [address] Lisbet Bowser Globulin (S) [Mass/Vol] 3.7 g/dL Normal [facility] Comment on above: Performed By: #### C MP, CRP, URIC #### [facility] [address] [address] [address] Lisbet Bowser Glucose [Mass/Vol] 136 mg/dL Critically high 74-106 [facility] Comment on above: Performed By: #### C MP, CRP, URIC #### [facility] [address] [address] [address] Lisbet Bowser Potassium [Moles/Vol] 3.9 mmol/L Normal 3.5-5.1 [facility] Comment on above: Performed By: #### C MP, CRP, URIC #### [facility] [address] [address] [address] Lisbet Bowser Protein [Mass/Vol] 7.3 g/dL Normal 6.4-8.2 [facility] Comment on above: Performed By: #### C MP, CRP, URIC #### [facility] [address] [address] [address] Lisbet Bowser Sodium [Moles/Vol] 140 mmol/L Normal 136-145 [facility] Comment on above: Performed By: #### C MP, CRP, URIC #### [facility] [address] [address] [address] Lisbet Bowser Urea nitrogen [Mass/Vol] 13.0 mg/dL Normal 7.0-18.0 [facility] Comment on above: Performed By: #### C MP, CRP, URIC #### [facility] [address] [place] [address] Dr. Lisbet Bowser Urea nitrogen/Creatinine [Mass ratio] 14.3 mg/mg Normal [facility] Comment on above: Performed By: #### C MP, CRP, URIC #### [facility] [address] [address] [address] Lisbet Bowser SED RATE [facility] 2022 SED RATE 24 mm/hr Critically high <=20 [facility] Comment on above: Performed By: #### S EDR #### [facility] [address] [place] [address] Dr. Lisbet Bowser URIC ACID SERUMon 05-25-2022 Urate [Mass/Vol] 7.8 mg/dL Critically high 3.5-7.2 [facility] Comment on above: Performed By: #### C MP, CRP, URIC #### [facility] [address] [place] [address] Dr. Lisbet Bowser Vital Signs Date Time Vital Sign Value Performing Clinician Facility 08-01-2024 07:57-0400 Body height 170.2 cm [facility] [employer] Work Phone: [facility] 08-01-2024 07:57-0400 Body mass index (BMI) [Ratio] 53.25 kg/m2 [facility] [employer] Work Phone: [facility] 08-01-2024 07:57-0400 Body weight 154.22 kg [facility] [employer] Work Phone: [facility] 07-21-2024 15:49-0400 Heart rate 69 /min [facility] 07-21-2024 15:49-0400 SaO2% (BldA) [Mass fraction] 100 % Newton Minor [facility] 07-21-2024 15:49-0400 Diastolic blood pressure 78 mm[Hg] Newton Minor [facility] 07-21-2024 15:49-0400 Mean blood pressure 108 mm[Hg] Newtno Minor [facility] 07-21-2024 15:49-0400 Systolic blood pressure 169 mm[Hg] Newton Minor [facility] 07-21-2024 15:48-0400 Respiratory rate 17 /min Newton Minor [facility] 07-21-2024 14:42-0400 Heart rate 66 /min Newton Minor [facility] 07-21-2024 14:42-0400 SaO2% (BldA) [Mass fraction] 98 % Newton Minor [facility] 07-21-2024 14:42-0400 Diastolic blood pressure 85 mm[Hg] Newton Minor [facility] 07-21-2024 14:42-0400 Mean blood pressure 108 mm[Hg] Newton Minor [facility] 07-21-2024 14:42-0400 Systolic blood pressure 154 mm[Hg] Newton Minor [facility] 07-21-2024 14:42-0400 Respiratory rate 15 /min Newton Minor [facility] 07-21-2024 14:35-0400 SaO2% (BldA) [Mass fraction] 97 % Newton Minor [facility] 07-21-2024 14:35-0400 Heart rate 70 /min Newton Minor [facility] 07-21-2024 14:35-0400 Respiratory rate 10 /min Newton Minor [facility] 07-21-2024 14:35-0400 Blood Pressure Location Newton Ingrid [facility] 07-21-2024 14:35-0400 Body temperature 98.24 [degF] Newton In[facility] 07-21-2024 14:35-0400 Diastolic blood pressure 78 mm[Hg] Newton In[facility] 07-21-2024 14:35-0400 Mean blood pressure 102 mm[Hg] Newton In[facility] 07-21-2024 14:35-0400 Systolic blood pressure 150 mm[Hg] Newton In[facility] 07-21-2024 14:30-0400 Respiratory rate 10 /min Newton In[facility] 07-21-2024 14:30-0400 Blood Pressure Location [facility] In[facility] 07-21-2024 14:30-0400 Mean blood pressure 99 mm[Hg] Newton [facility] 07-21-2024 14:25-0400 Respiratory rate 9 /min Newton In[facility] 07-21-2024 14:25-0400 Blood Pressure Location Newton In[facility] 07-21-2024 14:25-0400 Mean blood pressure 124 mm[Hg] Newton In[facility] 07-21-2024 14:10-0400 Body temperature 97.88 [degF] Newton Minor [facility] 07-21-2024 10:20-0400 Mean blood pressure 109 mm[Hg] Newton Minor [facility] 07-21-2024 10:20-0400 Heart rate 64 /min Newton Minor [facility] 07-21-2024 10:19-0400 Respiratory rate 16 /min Newton Minor [facility] 07-21-2024 10:18-0400 Body temperature 98.24 [degF] Newton Minor [facility] 07-16-2024 14:49-0400 Blood Pressure Location Mahmoud [facility] 07-16-2024 14:49-0400 Diastolic blood pressure 80 mm[Hg] [facility] 07-16-2024 14:49-0400 Heart rate 70 /min [facility] 07-16-2024 14:49-0400 Respiratory rate 18 /min Mahmoud [facility] 07-16-2024 14:49-0400 SaO2% (BldA) [Mass fraction] 97 % [facility] 07-16-2024 14:49-0400 Systolic blood pressure 129 mm[Hg] [facility] 07-14-2024 09:29-0400 Diastolic blood pressure 76 mm[Hg] Newton Minor [facility] 07-14-2024 09:29-0400 Heart rate 72 /min Newton Minor [facility] 07-14-2024 09:29-0400 Mean blood pressure 91 mm[Hg] Newton Minor [facility] 07-14-2024 09:29-0400 Systolic blood pressure 122 mm[Hg] Newton Minor [facility] 07-14-2024 09:28-0400 Heart rate 75 /min Newton [facility] 07-14-2024 09:28-0400 SaO2% (BldA) [Mass fraction] 94 % Newton Minor [facility] 07-14-2024 09:28-0400 Diastolic blood pressure 82 mm[Hg] Newton [facility] 07-14-2024 09:28-0400 Mean blood pressure 101 mm[Hg] Newton [facility] 07-14-2024 09:28-0400 Systolic blood pressure 139 mm[Hg] Newton Minor [facility] 07-11-2024 08:51-0400 Body height 170.2 cm Newton Minor DO Work Phone: [facility] [employer] 07-11-2024 08:51-0400 Body mass index (BMI) [Ratio] 53.25 kg/m2 Newton Minor DO Work Phone: [facility] [employer] 07-11-2024 08:51-0400 Body weight 154.22 kg Newton Minor DO Work Phone: [facility] [employer] 08-03-2022 11:10-0400 Body height 170.18 cm Annmarie Mann Other [employer] Other 08-03-2022 11:10-0400 Body mass index (BMI) [Ratio] 51.62 kg/m2 Annmarie Mann Other [employer] Other 08-03-2022 11:10-0400 Body temperature 96.4 [degF] Annmarie Mann Other [employer] Other 08-03-2022 11:10-0400 Body weight 149.51 kg Annmarie Mann Other [employer] Other 08-03-2022 11:10-0400 Respiratory rate 18 /min Annmarie Mackenzie Other [employer] Other 08-03-2022 11:10-0400 SaO2% (BldA) [Mass fraction] 96 % Annmarie Mcdanielsley Other [employer] Other Encounters Encounter Date Encounter Type Care Provider Facility Start: 08-13-2024 End: 08-13-2024 ambulatory Newton MACDONALD Facility:[facility] Start: 08-13-2024 End: 08-13-2024 Patient encounter procedure Newton MACDONALD [facility] Start: 08-01-2024 End: 08-01-2024 Bamboo flowsheet Mili Lemon PA Work Phone: [facility] Start: 08-01-2024 End: 08-01-2024 Bamboo flowsheet Mili Lemon PA Work Phone: [facility] Start: 08-01-2024 End: 08-01-2024 Patient encounter procedure Mili Lemon PA Work Phone: [facility] Comment on above: Status post arthrosc opic surgery of right knee (Primary Dx) Start: 08-01-2024 End: 08-01-2024 ambulatory MILI LEMON Not Available Start: 07-29-2024 [facility]ulatory [facility] Facility :[facility] Start: 07-21-2024 End: 07-21-2024 Admission to same day surgery center [facility] Start: 07-21-2024 End: 07-21-2024 ambulatory Newton Minor [place] [place] Start: 07-17-2024 End: 07-17-2024 [facility] [place] Start: 07-17-2024 End: 07-17-2024 [facility] Start: 07-16-2024 End: 07-16-2024 ambulatory Fabián Sorto Facility[place] [place] Start: 07-16-2024 End: 07-16-2024 Patient encounter procedure Fabián Sort[facility] Start: 07-14-2024 End: 07-14-2024 ambulatory Newton Minor Facility[place] [place] Start: 07-14-2024 End: 07-14-2024 Patient encounter procedure Newton Ever Minor [facility] Start: 07-11-2024 End: 07-11-2024 Bamboo flowsheet Newton Curtis Minor DO Work Phone: [facility] Start: 07-11-2024 End: 07-11-2024 Bamboo flowsheet Newton Curtis Minor DO Work Phone: [facility] Start: 07-11-2024 End: 07-11-2024 Patient encounter procedure Newton Ever Minor Work Phone: [facility] Comment on above: Pre-op testing (Prim shaw Dx); Acute pain of right knee Start: 07-11-2024 End: 07-11-2024 Patient encounter status Newton Ever Minor DO Work Phone: [facility] Start: 07-11-2024 End: 07-11-2024 ambulatory NEWTON MINOR Not Available Start: 08-03-2022 End: 08-03-2022 ambulatory Annmarie Mann Other [employer] Other Start: 08-03-2022 Office outpatient vi sit 15 minutes Annmarie Mann [facility] Start: 05-25-2022 End: 05-26-[address] WALLACE BISHOP . Facility: Procedures Date Procedure Procedure Detail Performing Clinician Start: 07-21-2024 Arthroscopy of knee Newton Minor Dental surgical procedure Jazmine Minor History of operative procedure on knee Status post arthroscopic surgery of right knee Mili COE Work Phone: Tonsillectomy Newton MACDONALD Plan of Treatment Date Care Activity Detail Author Start: 11-03-2024 Influenza vaccination Influenz a Vaccine (Season Ended) [facility] Start: 08-01-2024 End: 08-01-2024 Patient encounter procedure [facility] Comment on above: Arrived Start: 07-11-2024 End: 07-11-2025 Basic metabolic 1998 panel - Serum or Plasma Basic metabolic panel Lab Routine Pre-op testing Expected: 07/11/2024 (Approximate), Expires: 07/11/2025 [facility] Work Phone: Comment on above: Expected: 07/11/2024 (Approximate), Expires: 07/11/2025 Start: 07-11-2024 End: 07-11-2025 CBC panel - Blood by Automated count CBC Lab Routine Pre-op testing Expected: 07/11/2024 (Approximate), Expires: 07/11/2025 [facility] Comment on above: Expected: 07/11/2024 (Approximate), Expires: 07/11/2025 Start: 07-11-2024 End: 07-11-2025 ECG 12 lead ECG 12 lead ECG Routine Pre-op testing Expected: 07/11/2024 (Approximate), Expires: 07/11/2025 [facility] Comment on above: Expected: 07/11/2024 (Approximate), Expires: 07/11/2025 Start: 07-11-2024 End: 07-11-2024 Patient encounter procedure 07/11/2024 8:45 AM EDT Office Visit [facility] [address] [place] [address] Newton Minor DO [address] [place] [address] Acute pain of right knee (Primary Dx) [facility] Comment on above: Acute pain of right knee (Primary Dx) Start: 1970 Screening for malign ant neoplasm of colon [facility] Immunizations Immunization Date Immunization Notes Care Provider Fa cility 11-21-2021 SARS-CoV-2 (COVID-19 ) [id number] Newton SALEHL [facility] 01-26-2021 SARS-CoV-2 (COVID-19 ) mRNA-[id number] vaccine Newton SALEHL [facility] 06-24-2020 SARS-CoV-2 (COVID-19 ) mRNA-1273 vaccine Newton NILL [facility] Comment on above: Result Comment: 2024: 49 05-27-2020 SARS-CoV-2 (COVID-19 ) mRNA-1273 vaccine Newton SALEHL [facility] Comment on above: Result Comment: 2024: 49 Payers Date Payer Category Payer Private Health Insurance 1.2 [id number] 1970 Unknown [id number] 2.16.84 [id number] 1970 Unknown [id number] 2.16.8 [id number] 1970 Unknown [id number] 2.16.84 [id number] 1970 Unknown [id number] 2.16.84 [id number] 1970 Unknown [id number] 2.16.8 [id number] 1970 Unknown [id number] 2.16.8 [id number] 1970 Unknown [id number] 2.16.8 [id number] 1970 Unknown [id number] 2.16.8 [id number] 1960 Private Health Insurance [id number] Social History Date Type Detail Facility Unknown if ever smoked [employer] Other Start: 07-11-2024 End: 08-01-2024 Sex Assigned At [facility] Tobacco smoking status [facility] Tobacco smoking consumption unknown [facility] Start: 1970 Sex assigned at Not on file [facility] [place] [place] [facility] Tobacco smoking status [facility] Start: 03-20-2019 Sex Male (finding) [facility] Start: 07-11-2024 End: 08-13-2024 Tobacco smoking status [facility] Never smoked tobacco [facility] Start: 07-11-2024 Tobacco use and exposure Smokeless tobacco non-user [facility] Start: 07-11-2024 End: 08-01-2024 History of Social function [facility] Tobacco smoking status Never [facility] Start: 08-01-2024 Alcoholic beverage intake Not Asked [facility] Functional Status Date Assessment Result Facility 07-16-2024 Functional Status N/A [facility] 07-14-2024 Functional Status No [facility] Clinical Notes 08-03-2022 to 08-13-2024 CAROLIN Teague - 08/01/2024 8:00 AM EDTPatidebora De Los Santos MA - 07/11/2024 8:45 AM EDTRhea Morton - 07/11/2024 8:45 AM EDT Note Date & Type Note Facility 08-13-2024 Note General Surgery Offi ce/Clinic Note Chief Complaint consultation for rectal bleeding HPI Staff 54 year old male presents on consultation from Dr. Bishop for rectal bleeding. Patient presented to ED 07/28 with stated complaint. Reports having diarrhea for several days prior to start of rectal bleeding. Patient verbalized blood was bright red and oozing from rectum. Verbalized bleeding was not excessive. Having bowel movement did not increase the amount of rectal bleeding. He was experiencing rectal pain as well. Denies noting external bulge. Both symptoms spontaneously resolved after 1 week. Denies abdominal pain, nausea or vomiting. Follow up with PCP the following day and was prescribed Hydrocortisone cream for possible hemorrhoid, he is no longer using this. No previous colonoscopy. No known family history of colon cancer. History of Present Illness 54 yo male with h/o htn, eczema, gout, class 3 obesity, referred for rectal bleeding; patient had knee arthroscopy and was placed on regular asa in the perioperative period; developed several days of loose stools 1 week after surgery, then developed rectal bleeding, oozing red blood with wiping, some pain up in rectum; negative w/u in ED; pain and bleeding resolved after 1 week, he also discontinued the asa; no abd operations, no previous colonoscopy; no asa or NSAID use currently; no tobacco use; no fmhx of GI malignancy or IBD. Review of Systems PHQ Score Initial Depression Screen Score: 0 SCORE ROS - Provider Constitutional: no fever, no sweats, no weight loss. Eyes: no glasses, no blurred vision, no visual loss. ENMT: no dentures, no hoarseness, no swallowing difficulties, no hearing loss, no ear infection(s), no nose bleeds. Cardiovascular: normal blood pressure, no chest pain, regular heartbeat, no heart murmur. Respiratory: no shortness of breath, no cough, no asthma, no wheezing. Gastrointestinal: no nausea, no vomiting, no diarrhea, no constipation, no blood in stool, no change in bowel habits, no abdominal pain, no hepatitis. Genitourinary: no kidney stones, no urine infection, no dysuria. Musculoskeletal: no pain, no weakness. Skin: no changing moles, no rash, no skin lumps. Neurologic: no seizures, no epilepsy, no headache. Psychiatric: no emotional or psychiatric problem. Heme/Lymph: no bleeding problems, no anemia, no blood clots, no transfusions. Allergy/Immunologic: no swollen lymph nodes/glands, no IV drug abuse. Other: Additional ROS info: Except as noted in the above Review of Systems and in the History of Present Illness, all other systems have been reviewed and are negative or noncontributory. Physical Exam Vitals & Measurements HR: 76(Peripheral) RR: 16 BP: 146/76 HT: 66 in HT: 167.6 cm WT: 342.598 lb WT: 155.4 kg BMI: 55.32 HEENT: normal conjunctiva, sclera clear, no scleral icterus, EOM intact, PERRLA, oral mucosa moist without lesions. Neck: trachea midline, no mass, symmetric, no thyromegaly or nodules, no adenopathy Respiratory: lungs CTA, respirations non labored. Cardiovascular: regular rate and rhythm, no murmur, no pedal edema or varicosities. Gastrointestinal: obese, soft, non distended, no tenderness, no masses, no palpable hernias, diastasis recti no, no hepatosplenomegaly; normal bs. Musculoskeletal: normal gait, digits and nails without infection, nodes, cyanosis, clubbing. Skin: no rashes, no lesions, no ulcers, no subcutaneous nodules, induration. Psychiatric/Neuro: oriented to time, place, person, judgement normal, affect appropriate for age, insight intact, no focal deficits. Tests: , review of old records completed , Discussed surgical options, risks, and possible complications with patient. Assessment/Plan 1. Screening for malignant neoplasm of colon (Z12.11: Encounter for screening for malignant neoplasm of colon) colonoscopy under anesthesia, informed consent obtained. 2. Rectal bleeding (K62.5: Hemorrhage of anus and rectum) resolved; see # 1 Follow-up No qualifying data available Problem List/Past Medical History Ongoing Class 3 obesity Eczema Gout Hypertension Morbid obesity with BMI of 50.0-59.9, adult Rectal bleeding Screening for malignant neoplasm of colon Historical No qualifying data Procedure/Surgical History Arthroscopy of knee (07/21/2024), Tonsillectomy. Medications losartan 100 mg Tab, 100 mg= 1 tab(s), Oral, Daily Allergies penicillins (Rash, Hives) Social History Alcohol - Denies Alcohol Use, 07/14/2024 Never., 08/10/2024 Substance Abuse - Denies Substance Abuse, 07/14/2024 Never., 08/10/2024 Tobacco - Denies Tobacco Use, 07/14/2024 Never (less than 100 in lifetime) Tobacco Use:. Never Smokeless Tobacco Use:., 08/13/2024 Family History Cancer: Father. Immunizations Vaccine Date Status Comments SARS-CoV-2 (COVID-19) mRNAMUL.ORD![id number] 11/21/2021 Recorded SARS-CoV-2 (COVID-19) mRNA-1273 vaccine 01/26/2021 Recorded SARS-CoV-2 (COVID-19) mRNA-1273 vacci (more content not included)... [facility] Comment on above: Result Comment: Elec tronically Signed By: TORRES HENRY, Newton Tejada\Date and Time Signed: 08/13/24 15:45 EDT 08-01-2024 History of Present illness Narrative Images from the original note were not included. Subjective Patient ID: Rey Ferrera is a 54 y.o. male. Chief Complaint: Post-op of the Right Knee (Rt knee scope [facility] [place] Last Surgery: No surgery found Last Surgery Date: No surgery found HPI Rey comes in postop from his knee arthroscopy his trocar portals have healed nicely he has very little if any discomfort and has maintain excellent motion he states he is not taking anything for pain he actually had to stop his aspirin because of a bleeding hemorrhoid that he had to go to the emergency department and he has spoken with his primary care in regards to the as well. He is here for review of his surgical photos and discussion on postop treatment plan. Objective Ortho Exam He has full extension with flexion of 115 degrees no significant patellofemoral crepitus despite known developing OA in the area. He has no associated joint pain. Denies any thigh pain his calf is supple and has no associated pain with Homans test. Incision portals have healed with no drainage or erythema. Image Results: No image results found. Assessment/Plan Encounter Diagnoses: Status post arthroscopic surgery of right knee No orders of the defined types were placed in this encounter. Follow up if symptoms worsen or fail to improve. Continue use a cold pack for 20 minutes several times a day and he may get back on your meloxicam for treatment of anti-inflammatory and joint pain. Continue home exercise program twice daily for the next few weeks. Call If you wish to pursue organized physical therapy if he start to go backwards we are happy to see him back and evaluated. Tylenol for breakthrough discomfort. Would anticipate continued improvement over the next 4-6 weeks with reduction of swelling and discomfort. He denies any needs for work restriction or returned to work information. documented in this encounter [facility] 08-01-2024 Instructions CAROLIN Teague - 08/01/2024 8:00 AM EDT Continue use a cold pack for 20 minutes several times a day and he may get back on your meloxicam for treatment of anti-inflammatory and joint pain. Continue home exercise program twice daily for the next few weeks. Call If you wish to pursue organized physical therapy if he start to go backwards we are happy to see him back and evaluated. Tylenol for breakthrough discomfort. Would anticipate continued improvement over the next 4-6 weeks with reduction of swelling and discomfort. He denies any needs for work restriction or returned to work information. documented in this encounter [facility] 07-23-2024 Note Progress Note-Juan Ramon brennan Patient: REY FERRERA Age: 54 years Sex: Male : 1970 Associated Diagnoses: None Author: Christian Jones Jr, DO Postoperative Information Postoperative disposition: Postoperative disposition: To PACU. Optimetrix number: Optimetrix number [id number]. Anesthetic utilized: General. Health Status Allergies: Allergic [...] when meets criteria ( To home ). [facility] Comment on above: Result Comment: Elec tronically Signed By: Christian Jones Jr, DO\.br\Date and Time Signed: 07/23/24 08:26 EDT 07-22-2024 Note Progress Note-Physic mika Patient: REY FERRERA Age: 54 years Sex: Male : 1970 [...] Problems High blood pressure / SNOMED CT [id number] / Confirmed Histories Procedure history: Dental surgical procedure ([id number]). Social History Social & Psychosocial Habits Alcohol 07/16/2024 Risk Assessment: Denies Alcohol Use Substance Abuse 07/16/2024 Risk Assessment: Denies Substance Abuse Tobacco 07/16/2024 Risk Assessment: Denies Tobacco Use 07/16/2024 Tobacco Use: Never (less than 100 in l Smokeless tobacco use: Never . Physical Examination Airway: Mallampati classification: II (soft palate, fauces, uvula visible). Respiratory: adequate air exchange. Cardiovascular: Regular rhythm. Plan [place] [employer] Anesthesiologists (ASA) physical status classification: Class III. Anesthetic Preoperative Plan: Anesthesia General, and Patient educated on benefits, alternatives and inherent risk of anesthesia including, but not all inclusive, Allergic reactions, dental damage, nerve damage and cardio-pulmonary complications and wishes to proceed with anesthetic plan.. [facility] Comment on above: Result Comment: Jose Alfredo tronikhilally Signed By: Christian Jones Jr, DO\Date and Time Signed: 07/22/24 07:38 EDT 07-21-2024 Hospital Discharge instructions Patient Education 07/21/2024 15:00:01 Minor - Knee Arthroscopy(CUSTOM) [address], [place] [facility] DISCHARGE INSTRUCTIONS: KNEE ARTHROSCOPY [...] dry. [facility] Discharge Instructs for Knee ArthroscopyPage 2 Dressing A soft compression dressing has [...] your appointment. Newton Minor, DO [facility] [address], [place] [id number] Reviewed: 03-2907/21/2024 14:55:37 Post Op Patient Instructions - FT (CUSTOM) 07/21/2024 14:55:34 Knee Cryocuff Patient Instructions - FT (CUSTOM) Follow Up Care 07/11/2024 09:45:19 With:CLARK Whitman Address: [address] [place] [phone] Business (1) When:08/01/2024 08:00:00 Comments:Keep scheduled appointmentCall for any problems. [facility] 07-21-2024 Note Patient Education - Text [address], [place] [facility] DISCHARGE INSTRUCTIONS: KNEE ARTHROSCOPY [...] your appointment. Newton Minor, DO [facility] [address] [id number] Reviewed: 03-29 [facility] 07-17-2024 Note Echocardiology Procedure Exam Date/Time Accession # Ordering Echo Transthoracic w/ 07/17/2024 09:42 EDT [id number] Fabián Sorto MD Contrast CPT code [id number] Reason for Exam (Echo Transthoracic w/ Contrast) Preop clearance I10;[place] [address] Adult Echocardiogram Report Name: REY FERREAR Study Date: 07/17/2024 08:05 AM BP: 158/89 mmHg Patient Location: [facility] Ambulatory(s) [facility] [place] HR: 75 : 1970 Gender: Male Height: 67 in Age: 54 yrs Ethnicity: T Weight: 340 lb Reason For Study: Preop clearance I10;Hypertension BSA: 2.5 m2 History: HTN,Morbid obesity Ordering Physician: Macario^Fabián Referring Physician: Fabián Sorto Performed By: Rica Clayton, ARLEY, RVT Interpretation Summary The left ventricle is [...] Sorto MD Transcribed by: MICKEY Technologist: INEZ Ferrera [facility] 07-11-2024 History of Present illness Narrative MEDICATIONS: Current Outpatient Medications Medication Instructions benzonatate (TESSALON) 200 mg, 3 times daily losartan (Cozaar) 50 MG tablet TAKE 1 TABLET BY MOUTH EVERY DAY FOR 30 DAYS meloxicam (MOBIC) 15 mg, Daily ALLERGIES: Allergies Allergen Reactions Penicillins Rash MEDICAL HISTORY: Past Medical History: Diagnosis Date Gout SURGICAL HISTORY: History reviewed. No pertinent surgical history. FAMILY HISTORY: No family history on file. SOCIAL HISTORY: Social History Tobacco Use Smoking status: Never Smokeless tobacco: Never Depression: Not on file VITALS: Visit Vitals Ht 5' 7 Wt 340 lb BMI 53.25 kg/m Smoking Status Never BSA 2.7 m Images from the original note were not included. GENERAL HISTORY AND PHYSICAL: NAME: Rey Ferrera : 1970 CHIEF COMPLAINT: Right knee pain and swelling with mechanical symptoms. HISTORY OF PRESENT ILLNESS: Obie is here with an injury a few months ago when he slipped on the ice. He felt a pop rip sensation. He had difficulty walking. He has tried physical therapy. He has tried a brace. He has tried two cortisone injections. There was an attempt to authorize Visco supplementation without success with his insurance. He is here for a second opinion. He did see Dr. Ramirez and his associates. Cortisone injection helped temporarily for one day on the first one, nothing on the second. He still continues to have pain. Driving in the car which he goes towards [place] three days a week, after 20 minutes, his knee will get stiff and feel like it is locked up. He does have torsional avoidance. He does have buckling and giving out. The compounding factor is his obesity, BMI of 53. He has no history of deep venous thrombosis or pulmonary embolism. No history of anesthesia complications. Dr. Bishop is his primary care physician. PAST MEDICAL HISTORY: Past Medical History: Diagnosis Date Gout PAST SURGICAL HISTORY: History reviewed. No pertinent surgical history. SOCIAL HISTORY: Social History Occupational History Not on file Tobacco Use Smoking status: Never Smokeless tobacco: Never Substance and Sexual Activity Alcohol use: Not on file Drug use: Not on file Sexual activity: Not on file ALLERGIES: Allergies Allergen Reactions Penicillins Rash MEDICATIONS: Current Outpatient Medications Medication Instructions benzonatate (TESSALON) 200 mg, 3 times daily losartan (Cozaar) 50 MG tablet TAKE 1 TABLET BY MOUTH EVERY DAY FOR 30 DAYS meloxicam (MOBIC) 15 mg, Daily REVIEW OF SYSTEMS: The review of systems, history and current medications list are all reviewed today. Vitals: Visit Vitals Ht 5' 7 Wt 340 lb BMI 53.25 kg/m Smoking Status Never BSA 2.7 m PHYSICAL EXAM: On physical exam, he is alert and oriented. Vital signs are stable. Increased BMI with soft tissue envelope is noted. He has exquisite tenderness to the right knee in the medial joint and posterior medial joint. Karin's produces severe pain. Apley's produces severe pain with click. He does get patellofemoral crepitus bilaterally, negative grind and negative apprehension. Gait is stiff and antalgic. He is neurovascularly intact distally. Bench and straight leg raise testing is negative. Ankle edema is mild. X-rays, permanently saved to the patient's record, are reviewed show mild to early medium degenerative changes in particularly involving the patellofemoral joint. He has greater than 50% of his articular space. MRI is reviewed taken through outside center shows a displaced medial meniscal tear. There is mild to moderate degenerative changes. The ACL and PCL are intact. Lateral meniscus has some degeneration which could represent a small tear. There is no bone marrow edema, fracture or dislocation seen. Large soft tissue envelope is noted. Surgical History and Physical: GENERAL AND PSYCHOLOGICAL: The patient is alert and oriented for age. HEAD AND E.E.N.T.: The skull is normocephalic. There is no mass or sign of trauma. NECK: The neck is supple. There is good range of motion. There is no mass or adenopathy appreciated. The thyroid is not enlarged. CARDIAC: The heart is regular. There is no murmur or ectopy appreciated. LUNGS: Inspiratory and expiratory excursions are symmetrical. The lung franco are clear in all quadrants. ABDOMEN: The texture is soft. Bowel sounds are heard well in all quadrants. There is no tenderness to palpation. There is no organomegaly appreciated. OSTEOPATHIC AND STRUCTURAL: There is no gross evidence of kyphosis, lordosis, scoliosis, or apparent leg length discrepancy, with no acute tissue texture changes in sitting or standing positions. ASSESSMENT: Right knee internal derangement with medial meniscal tear. Antalgic gait. Failure of conservative and injection management. Obesity, BMI of 53. PLAN: The nature of the findings were discussed at length. We had a lengthy discussion regarding his weight, the higher perioperative morbidity and mortality. Unfortunately he is having significant pain and he cannot function. At some point, knee arthroscopy has to be performed. We instructed him on trying to lose weight with dietary measures. He will work with Dr. Bishop. We would need preoperative surgical clearance for medical stability. This will be done at the hospital. The nature of the findings were discussed at length. Knee arthroscopy was recommended. Imaging studies, pathology and anatomy were reviewed. The patient has failed conservative care and has continued symptomatology with activities of daily living disruption. Knee arthroscopy is warranted. The patient is aware that knee arthroscopy does not cure arthritis. There is a potential of continued pain, stiffness, antalgic gait, infection, infection requiring multiple surgeries with IV antibiotics, nerve, vessel or tendon injury, foot drop, bleeding, anesthesia complications, blood clot, pulmonary embolus, myocardial infarction, arrhythmia, stroke and have all been reviewed. I am personally involved with the informed consent process. Numerous questions were answered. The patient will undergo routine presurgical testing per protocol. I will see the patient back postoperatively for a recheck, sooner if worse. The patient voices verbal understanding and is discharged in stable condition. Consent forms are signed and witnessed. His spouse is present. Once we have medical risk assessment, we will move forward with the procedure. If Dr. Bishop deems him unstable, he will have to look at other alternative dietary management options. Once again, he has exhausted time, bracing, therapy and two cortisone injections and knee arthroscopy is the next necessary step based on his imaging. He is discharged in stable condition. Follow up letter sent to Dr. Bishop. Newton Minor D.O. Cosigned by Newton Minor DO at 07/15/2024 1:41 PM EDT documented in this encounter [facility] 08-03-2022 Evaluation note Encounter Date Diagnosis Assessment Notes Aug, Ear foreign body, right, initial encounter (ICD-10 - T16.1XXA) Foreign body removed as per procedure documentation without issue. Discussed with patient no trauma to ear canal or TM from foreign body. Follow-up with PCP if further concerns. [facility] Other Evaluation + Plan note Future Appointments Appointment Date:07/21/2024 01:15:00 PM Scheduled Provider: Location:[facility] Appointment Type:Surgery FT [facility] Evaluation + Plan note Future Appointments Appointment Date:07/17/2024 08:00:00 AM Scheduled Provider: Location[facility] Appointment Type:CV Echo (FT) Appointment Date:07/21/2024 01:15:00 PM Scheduled Provider: Location:[facility] Appointment Type:Surgery FT Appointment Date:01/16/2025 01:00:00 PM Scheduled Provider:Fabián Sorto MD Location:[facility] Appointment Type:Cardiology Follow Up (FT) Future Scheduled Tests Radiology* Echo Transthoracic Complete 07/17/24 [facility] Evaluation + Plan note Future Appointments Appointment Date:07/21/2024 01:15:00 PM Scheduled Provider: Location:[facility] Appointment Type:Surgery FT Appointment Date:01/16/2025 01:00:00 PM Scheduled Provider:Fabián Sorto MD Location:[facility] Appointment Type:Cardiology Follow Up (FT) [facility] Evaluation + Plan note Future Appointments Appointment Date:01/16/2025 01:00:00 PM Scheduled Provider:Fabián Sorto MD Location:[facility] Appointment Type:Cardiology Follow Up (FT) [facility] Evaluation note* Diagnosis Pre-op testing- Primary Unspecified pre-operative examination Acute pain of right knee [facility] Status post arthroscopic surgery of right knee- Primary Other postprocedural status [facility] Narrative No data available for this section [facility] Hospital Discharge instructions No data available for this section [facility] Progress note No data available for this section [facility] Summary Purpose Family History No Family History Records FoundNo Family History Records FoundNo Family History Records FoundNo Family History Records Found No data available for this section No data available for this section No data available for this section No data available for this section No Family History Records Found No data available for this section No Family History Records Found Advance Directives No Advanced Directives Records FoundNo Advanced Directives Records FoundNo Advanced Directives Records FoundNo Advanced Directives Records FoundNo Advanced Directives Records FoundNo Advanced Directives Records Found Additional Source Comments (unrecognized sect ion and content) No Status Records FoundNo Status Records FoundNo Status Records FoundNo Status Records FoundNo Status Records FoundNo Status Records Found INFORMATION SOURCE (unrecogn ized section and content) DATE CREATED AUTHOR 06/10/2022 [facility] DATE CREATED AUTHOR AUTHOR'S ORGANIZ ATION 07/14/2024 [facility] DATE CREATED AUTHOR AUTHOR'S ORGANIZ ATION 07/15/2024 [facility] DATE CREATED AUTHOR AUTHOR'S ORGANIZ ATION 08/03/2024 [facility] EPIC DATE CREATED AUTHOR AUTHOR'S ORGANIZ ATION 08/16/2024 [facility] REASON FOR VISIT (unrecogniz ed section and content) Reason Comments Pain Reason Comments Post-op Rt knee scope [facility] [place] Care Teams (unrecognized sec tion and content) Trouble Dispatcher Relationship Specialty Start Date End Date Wallace Bishop MD PCP - General Family Medicine 06/27/24 Trouble Dispatcher Relationship Specialty Start Date End Date Wallace Bishop MD [address], [place] [id number] PCP - General Family Medicine 07/11/24 Trouble Dispatcher Relationship Specialty Start Date End Date Wallace Bishop MD [address] [place] [id number] PCP - General Family Medicine 07/11/24 Trouble Dispatcher Relationship Specialty Start Date End Date Wallace Bishop MD [address] [place] [id number] PCP - General Family Medicine 07/11/24 FOR RECORDS PERTAINING TO PATIENTS WHO ARE [...] BE BASED ON THE PRIMARY CLINICAL RECORDS. [facility] [employer] [facility]. provides no warranty or guarantee of the accuracy or completeness of information in this document.
[2024-08-27] MEDS: 0.9 % SODIUM CHLORIDE 500 ML 50 ML IV (08:36)
[2024-08-27 10:06] VITALS: BP 102/51; PULSE 78; O2SAT 96
[2024-08-27 10:21] VITALS: BP 129/56; PULSE 72; O2SAT 98
== END 2024-08-27 10:36 | disposition home or self-care (01) ==
LOC: SURGOUT 08:09
PROVIDERS: PCP Family Medicine; Visit Provider Surgery
PROC: (CPT 00812; principal; 2024-08-27 09:10)
DX: Z12.11 Encounter for screening for malignant neoplasm of colon (principal); D12.2 Benign neoplasm of ascending colon; I10 Essential (primary) hypertension; E66.813 Obesity, class 3; M10.9 Gout, unspecified; L30.9 Dermatitis, unspecified; Z68.43 Body mass index [BMI] 50.0-59.9, adult; K62.5 Hemorrhage of anus and rectum; G47.33 Obstructive sleep apnea (adult) (pediatric)
CPT/HCPCS: 00812; 45380; J2704